=== PATIENT | female | born 1930 | race Caucasian/White ===

== ENCOUNTER 2018-06-25 13:20 | Emergency (ER) | payer OTHER ==
[2018-06-25 14:38] LABS: Absolute Lymphocytes (CBC) 0.8 K/uL (0.7-4.9); Absolute Monocytes 0.4 K/uL (0.1-1.3); Absolute Neutrophil 5.2 K/uL (1.8-8.0); Basophils % 0.4 % (0-1.3); Eosinophils % 0.2 % (0-4.4); Hematocrit 43.4 % (36.0-45.0); Lymphocytes % 12.2 % (15.3-44.8); MPV 9.5 fL (7.6-11.3)
[2018-06-25 14:52] LABS: Albumin 3.9 g/dL (3.4-5.0); Bilirubin Direct 0.3 mg/dL (0-0.2); Bilirubin Total 0.9 mg/dL (0.2-1.0); Potassium 3.5 mmol/L (3.5-5.1); Protein, Total 7.9 g/dL (6.4-8.2)
[2018-06-25] MEDS ORDERED: NA CHLORIDE 0.9% 500 ML ONE (15:26)
[2018-06-25] MEDS ORDERED: ONDANSETRON 4 MG/2 ML VIAL ONE (15:26)
[2018-06-25] MEDS ORDERED: METOPROLOL TAR 25 MG TAB ONE (15:49)
[2018-06-25] MEDS ORDERED: APIXABAN 5 MG TABLET PO SCH (16:00)
[2018-06-25 17:03] LABS: Urine Blood TRACE (NEG); Urine Glucose NEGATIVE (NEG); Urine Protein NEGATIVE (NEG); Urine Specific Gravity 1.015 (1.005-1.030); Urine pH 6.5 (5.0-7.0)
[2018-06-25 17:07] LABS: Urine Bacteria <20 /HPF (<20); Urine RBC <5 /HPF (NONE SEEN)
[2018-06-25 17:08] LABS: Urine Culture Reflex Order REFLEXED
--- NOTE | 2018-06-25 17:34 | ER ---
Nurse's Notes [facility] Name: Zaida Yates Age: 87 yrs Sex: Female : 1930 Arrival Date: 06/25/2018 Time: 13:21 Bed 26 Private MD: Ruthy Lagos Diagnosis: Vomiting;Urinary tract infection, site not specified Presentation: 06/25 13:47 Presenting complaint: Patient states: I have been vomiting for the past 3 days. I cant la1 hold anything down, pt reports subjective fever, denies abd pain. Transition of care: patient was not received from another setting of care. Onset of symptoms was June 25, 2018. Risk Assessment: Do you want to hurt yourself or someone else? Patient reports no desire to harm self or others. Initial Sepsis Screen: Does the patient meet any 2 criteria? No. Patient's initial sepsis screen is negative. Does the patient have a suspected source of infection? No. Patient's initial sepsis screen is negative. 13:47 Method Of Arrival: Ambulatory la1 13:47 Acuity: WILMAN 3 la1 15:59 Care prior to arrival:. ca1 Historical: - Allergies: 13:47 Clindamycin; la1 13:47 Sulfa (Sulfonamide Antibiotics); la1 - Home Meds: 15:30 potassium chloride 20 mEq Oral cpER 2 tabs once daily [Active]; Simvastatin + Ezetomibe ca1 10-20 mg 1 tab daily [Active]; Eliquis 5 mg oral tab 1 tab 2 times per day [Active]; furosemide 40 mg Oral tab 1 tab 3 times per day [Active]; metoprolol tartrate 25 mg Oral tab .5 tab 2 times per day [Active]; levothyroxine 75 mcg tab 1 tab once daily [Active]; allopurinol 100 mg Oral tab 1 tab 2 times per day [Active]; - PMHx: 13:47 Hypertension; Diabetes - NIDDM; Hypothyroidism; la1 13:50 Atrial Fib; la1 - Immunization history:: Adult Immunizations up to date. - Social history:: Smoking status: Patient/guardian denies using tobacco. - Ebola Screening: : No symptoms or risks identified at this time. Screenin:00 Abuse screen: Denies threats or abuse. Denies injuries from another. Nutritional ca1 screening: No deficits noted. Tuberculosis screening: No symptoms or risk factors identified. Fall Risk IV access (20 points). Assessment: 14:00 General: Appears in no apparent distress. Behavior is calm, cooperative, appropriate ca1 for age. General: Reports vomiting for 2 days now. Pain: Denies pain. Neuro: Level of Consciousness is awake, alert, obeys commands, Oriented to person, place, time, situation. Neuro:. Neuro: Reports dizziness. Cardiovascular: Heart tones S1 S2 present Capillary refill < 3 seconds Patient's skin is warm and dry. Respiratory: Airway is patent Trachea midline Respiratory effort is even, unlabored, Respiratory pattern is regular, symmetrical, Breath sounds are clear bilaterally. GI: Abdomen is flat, non-distended, Bowel sounds present X 4 quads. Abd is soft and non tender X 4 quads. Reports nausea, vomiting. : No signs and/or symptoms were reported regarding the genitourinary system. EENT: No signs and/or symptoms were reported regarding the EENT system. Derm: Skin is fragile, is thin, with poor turgor Skin is pink, warm \T\ dry. Musculoskeletal: Circulation, motion, and sensation intact. Capillary refill < 3 seconds. 15:00 Reassessment: Patient appears in no apparent distress at this time. Patient and/or ca1 family updated on plan of care and expected duration. Pain level reassessed. Patient is alert, oriented x 3, equal unlabored respirations, skin warm/dry/pink. 15:53 Reassessment: Patient appears in no apparent distress at this time. Patient and/or ca1 family updated on plan of care and expected duration. Pain level reassessed. Patient is alert, oriented x 3, equal unlabored respirations, skin warm/dry/pink. Faxed to pharmacy [facility]. Patient states feeling better. 16:44 Reassessment: Patient appears in no apparent distress at this time. Patient and/or ca1 family updated on plan of care and expected duration. Pain level reassessed. Patient is alert, oriented x 3, equal unlabored respirations, skin warm/dry/pink. Patient states feeling better. 17:40 Reassessment: Patient appears in no apparent distress at this time. Patient and/or ca1 family updated on plan of care and expected duration. Pain level reassessed. Patient is alert, oriented x 3, equal unlabored respirations, skin warm/dry/pink. Kept for observation after IV antibiotic administration. Vital Signs: 13:50 BP 138 / 90; Pulse 74; Resp 18; Temp 97.6; Pulse Ox 96% on R/A; Weight 61.23 kg; Height la1 5 ft. 5 in. (165.10 cm); 14:30 BP 140 / 85; Pulse 85; Resp 12; Pulse Ox 99% ; jp3 15:12 BP 145 / 100; Pulse 106; Resp 19; Pulse Ox 99% on R/A; ca1 15:53 BP 138 / 100; Pulse 104; Resp 19; Pulse Ox 97% on R/A; ca1 16:44 BP 131 / 92; Pulse 105; Resp 19; Pulse Ox 98% on R/A; ca1 18:00 BP 132 / 89; Pulse 102; Resp 19; Pulse Ox 99% on R/A; ca1 13:50 Body Mass Index 22.46 (61.23 kg, 165.10 cm) la1 ED Course: 13:21 Patient arrived in ED. as 13:22 Ruthy Lagos MD is Private Physician. as 13:49 Triage completed. la1 13:50 Arm band placed on left wrist. la1 13:55 Devin Dodd NP is PHCP. pm1 13:55 Jw Vieira MD is Attending Physician. pm1 13:57 Yessica Jessica, KRUNAL is Primary Nurse. ca1 14:10 Placed in gown. Bed in low position. Call light in reach. Side rails up X 1. Side rails jp3 up X2. Door closed. Warm blanket given. Pillow given. 14:15 journal entry audit clerk on. Pulse ox on. NIBP on. jp3 14:20 Inserted saline lock: 20 gauge in left antecubital area, using aseptic technique. Blood ca1 collected. 16:40 Urine collected: clean catch specimen, clear. ca1 17:33 Ruthy Lagos MD is Referral Physician. pm1 18:05 No provider procedures requiring assistance completed. IV discontinued, intact, mg2 bleeding controlled, No redness/swelling at site. Pressure dressing applied. Administered Medications: 15:10 Drug: Zofran 4 mg Route: IVP; Site: left antecubital; ca1 15:47 Follow up: Response: No adverse reaction; Nausea is decreased ca1 15:10 Drug: NS 0.9% 500 ml Route: IV; Rate: bolus; Site: left antecubital; ca1 15:37 Drug: Metoprolol 12.5 mg Route: PO; ca1 16:06 Follow up: Response: No adverse reaction ca1 16:00 Drug: Eliquis 5 mg Route: PO; ca1 16:44 Follow up: Response: No adverse reaction ca1 17:40 Drug: Rocephin 1 grams Route: IV; Rate: calculated rate; Site: left antecubital; ca1 18:00 Follow up: Response: No adverse reaction; IV Status: Completed infusion; IVP per ca1 pharmacy protocol Outcome: 17:34 Discharge ordered by MD. pm1 18:06 Discharged to home ambulatory, with family. mg2 18:06 Condition: stable 18:06 Discharge instructions given to patient, family, Instructed on discharge instructions, follow up and referral plans. medication usage, Demonstrated understanding of instructions, follow-up care, medications, Prescriptions given X 2. 18:11 Patient left the ED. mg2 Signatures: Katlyn Connor Lee RN RN la1 Devin Dodd, YANELIS MASTER GLAZIER pm1 Lefty Hazel RN RN mg2 Bal Bunch jp3 Yessica Jessica RN RN ca1 Corrections: (The following items were deleted from the chart) 20:03 17:40 Reassessment: Patient appears in no apparent distress at this time. Patient ca1 and/or family updated on plan of care and expected duration. Pain level reassessed. Patient is alert, oriented x 3, equal unlabored respirations, skin warm/dry/pink. ca1
--- NOTE | 2018-06-25 17:34 | EDPHYS ---
Physician Documentation [facility] Name: Zaida Yates Age: 87 yrs Sex: Female : 1930 Arrival Date: 06/25/2018 Time: 13:21 Bed 26 Private MD: Ruthy Lagos ED Physician Jw Vieira HPI: 06/25 16:43 This 87 yrs old Female presents to ER via Ambulatory with complaints of pm1 Vomiting. 16:43 The patient presents to the emergency department with vomiting, Three times per day for pm1 the last three days. Onset: The symptoms/episode began/occurred 3 day(s) ago. Possible causes: unknown. The symptoms are aggravated by nothing. The symptoms are alleviated by nothing. Associated signs and symptoms: Pertinent negatives: abdominal pain, constipation, diarrhea, dysuria, fever, chest pain, shortness of breath. Severity of symptoms: in the emergency department the symptoms are unchanged Pain is currently a 0 / 10. Patient was not able to take her medications this AM because she was vomiting. Historical: - Allergies: 13:47 Clindamycin; la1 13:47 Sulfa (Sulfonamide Antibiotics); la1 - Home Meds: 15:30 potassium chloride 20 mEq Oral cpER 2 tabs once daily [Active]; Simvastatin + Ezetomibe ca1 10-20 mg 1 tab daily [Active]; Eliquis 5 mg oral tab 1 tab 2 times per day [Active]; furosemide 40 mg Oral tab 1 tab 3 times per day [Active]; metoprolol tartrate 25 mg Oral tab .5 tab 2 times per day [Active]; levothyroxine 75 mcg tab 1 tab once daily [Active]; allopurinol 100 mg Oral tab 1 tab 2 times per day [Active]; - PMHx: 13:47 Hypertension; Diabetes - NIDDM; Hypothyroidism; la1 13:50 Atrial Fib; la1 - Immunization history:: Adult Immunizations up to date. - Social history:: Smoking status: Patient/guardian denies using tobacco. - Ebola Screening: : No symptoms or risks identified at this time. ROS: 16:43 Constitutional: Negative for fever, chills, and weight loss, Eyes: Negative for injury, pm1 pain, redness, and discharge, ENT: Negative for injury, pain, and discharge, Neck: Negative for injury, pain, and swelling, Cardiovascular: Negative for chest pain, palpitations, and edema, Respiratory: Negative for shortness of breath, cough, wheezing, and pleuritic chest pain. 16:43 Back: Negative for injury and pain, : Negative for injury, bleeding, discharge, and swelling, MS/Extremity: Negative for injury and deformity, Skin: Negative for injury, rash, and discoloration, Neuro: Negative for headache, weakness, numbness, tingling, and seizure. 16:43 Abdomen/GI: Positive for nausea and vomiting, Negative for abdominal pain, diarrhea, constipation. Exam: 16:43 Constitutional: This is a well developed, well nourished patient who is awake, alert, pm1 and in no acute distress. Head/Face: Normocephalic, atraumatic. Eyes: Pupils equal round and reactive to light, extra-ocular motions intact. Lids and lashes normal. Conjunctiva and sclera are non-icteric and not injected. Cornea within normal limits. Periorbital areas with no swelling, redness, or edema. ENT: Nares patent. No nasal discharge, no septal abnormalities noted. Tympanic membranes are normal and external auditory canals are clear. Oropharynx with no redness, swelling, or masses, exudates, or evidence of obstruction, uvula midline. Mucous membranes moist. Neck: Trachea midline, no thyromegaly or masses palpated, and no cervical lymphadenopathy. Supple, full range of motion without nuchal rigidity, or vertebral point tenderness. No Meningismus. Chest/axilla: Normal chest wall appearance and motion. Nontender with no deformity. No lesions are appreciated. Cardiovascular: Regular rate and rhythm with a normal S1 and S2. No gallops, murmurs, or rubs. Normal PMI, no JVD. No pulse deficits. Respiratory: Lungs have equal breath sounds bilaterally, clear to auscultation and percussion. No rales, rhonchi or wheezes noted. No increased work of breathing, no retractions or nasal flaring. Abdomen/GI: Soft, non-tender, with normal bowel sounds. No distension or tympany. No guarding or rebound. No evidence of tenderness throughout. Back: No spinal tenderness. No costovertebral tenderness. Full range of motion. Skin: Warm, dry with normal turgor. Normal color with no rashes, no lesions, and no evidence of cellulitis. MS/ Extremity: Pulses equal, no cyanosis. Neurovascular intact. Full, normal range of motion. 16:43 Neuro: Orientation: is normal, Motor: is normal, moves all fours, Gait: is steady, at a normal pace, without difficulty. Vital Signs: 13:50 BP 138 / 90; Pulse 74; Resp 18; Temp 97.6; Pulse Ox 96% on R/A; Weight 61.23 kg; Height la1 5 ft. 5 in. (165.10 cm); 14:30 BP 140 / 85; Pulse 85; Resp 12; Pulse Ox 99% ; jp3 15:12 BP 145 / 100; Pulse 106; Resp 19; Pulse Ox 99% on R/A; ca1 15:53 BP 138 / 100; Pulse 104; Resp 19; Pulse Ox 97% on R/A; ca1 16:44 BP 131 / 92; Pulse 105; Resp 19; Pulse Ox 98% on R/A; ca1 18:00 BP 132 / 89; Pulse 102; Resp 19; Pulse Ox 99% on R/A; ca1 13:50 Body Mass Index 22.46 (61.23 kg, 165.10 cm) la1 MDM: 14:25 Patient medically screened. pm1 14:30 Physician consultation: Ruthy Lagos MD in the emergency department to see patient pm1 at 14:30, If patient's Cr is greater than her normal range of 1.7, recommends admission. 17:31 Physician consultation: Ruthy Lagos MD was called at 17:31, was contacted at pm1 17:31, regarding patient's condition, and will see patient in office, Discharge the patient home with antibiotics and she will follow up with the patient in the office. 17:32 Data reviewed: vital signs. Data interpreted: Pulse oximetry: on room air is 98 %. pm1 Interpretation: normal. 17:33 Counseling: I had a detailed discussion with the patient and/or guardian regarding: the pm1 historical points, exam findings, and any diagnostic results supporting the discharge/admit diagnosis, lab results, the need for outpatient follow up, to return to the emergency department if symptoms worsen or persist or if there are any questions or concerns that arise at home. 17:39 ED course: CrCl by Cockcroft-Gault Equation is 24. Will discharge patient home with pm1 dose adjusted vantin. 06/25 14:04 Order name: Basic Metabolic Panel; Complete Time: 14:57 pm1 06/25 14:04 Order name: CBC with Diff; Complete Time: 14:57 pm1 06/25 14:04 Order name: Creatinine for Radiology; Complete Time: 14:57 pm1 06/25 14:04 Order name: Hepatic Function; Complete Time: 14:57 pm1 06/25 14:04 Order name: Lipase; Complete Time: 14:57 pm1 06/25 14:04 Order name: Urine Microscopic Only; Complete Time: 17:23 pm1 06/25 14:04 Order name: IV Saline Lock; Complete Time: 14:24 pm1 06/25 16:54 Order name: Urine Dipstick--Ancillary (enter results); Complete Time: 17:06 eb 06/25 17:08 Order name: Urine Culture [facility] 06/25 14:04 Order name: Labs collected and sent; Complete Time: 14:24 pm1 06/25 14:04 Order name: Urine Dipstick-Ancillary (obtain specimen); Complete Time: 16:44 pm1 06/25 16:04 Order name: PO challenge; Complete Time: 16:06 pm1 Administered Medications: 15:10 Drug: Zofran 4 mg Route: IVP; Site: left antecubital; ca1 15:47 Follow up: Response: No adverse reaction; Nausea is decreased ca1 15:10 Drug: NS 0.9% 500 ml Route: IV; Rate: bolus; Site: left antecubital; ca1 15:37 Drug: Metoprolol 12.5 mg Route: PO; ca1 16:06 Follow up: Response: No adverse reaction ca1 16:00 Drug: Eliquis 5 mg Route: PO; ca1 16:44 Follow up: Response: No adverse reaction ca1 17:40 Drug: Rocephin 1 grams Route: IV; Rate: calculated rate; Site: left antecubital; ca1 18:00 Follow up: Response: No adverse reaction; IV Status: Completed infusion; IVP per ca1 pharmacy protocol Disposition: 06/26 11:56 Co-signature as Attending Physician, Jw Vieira MD. Disposition: 06/25/18 17:34 Discharged to Home. Impression: Vomiting, Urinary tract infection, site not specified. - Condition is Stable. - Discharge Instructions: Nausea and Vomiting, Adult, Urinary Tract Infection, Adult. - Prescriptions for Zofran 4 mg Oral Tablet - take 1 tablet by ORAL route every 8 hours As needed; 20 tablet. cefpodoxime 100 mg Oral Tablet - take 1 tablet by ORAL route once daily for 7 days take with food; 7 tablet. - Medication Reconciliation Form, Thank You Letter, Antibiotic Education form. - Follow up: Emergency Department; When: As needed; Reason: Worsening of condition. Follow up: Ruthy Lagos MD; When: 2 - 3 days; Reason: Recheck today's complaints, Continuance of care, Re-evaluation by your physician. - Problem is new. - Symptoms have improved. Signatures: Dispatcher [employer] EDMS John Buck RN RN la1 Devin Dodd, YANELIS CHEMICAL DEPENDENCY NURSE pm1 Jw Vieira MD MD Lefty Hazel RN RN mg2 Jaskaran, Yessica RN RN ca1 Corrections: (The following items were deleted from the chart) 06/25 18:11 17:34 06/25/2018 17:34 Discharged to Home. Impression: Vomiting; Urinary tract mg2 infection, site not specified. Condition is Stable. Forms are Medication Reconciliation Form, Thank You Letter, Antibiotic Education, Prescription Opioid Use. Follow up: Emergency Department; When: As needed; Reason: Worsening of condition. Follow up: Ruthy Lagos; When: 2 - 3 days; Reason: Recheck today's complaints, Continuance of care, Re-evaluation by your physician. Problem is new. Symptoms have improved. pm1
[2018-06-25] MEDS ORDERED: CEFTRIAXONE/SWI 1gm 1 GM/10 ML SYR ONE (17:54)
[2018-06-25 18:18] VITALS: TEMP 97.6
[2018-06-25 18:23] VITALS: BP 131/92; O2SAT 98
== END 2018-06-25 18:11 | disposition home or self-care (01) ==
LOC: ER 13:20
DX: N39.0 Urinary tract infection, site not specified (principal); I10 Essential (primary) hypertension; I48.91 Unspecified atrial fibrillation; E11.9 Type 2 diabetes mellitus without complications; E03.9 Hypothyroidism, unspecified; Z79.01 Long term (current) use of anticoagulants; Z88.2 Allergy status to sulfonamides; Z88.3 Allergy status to other anti-infective agents
CPT/HCPCS: 96365; 87088; 85025; 80048; 36415; 80076; 83690; 96375; 99284; J0696; J2405; 81003; 81015; 87086

== ENCOUNTER → 2019-01-12 | Day surgery (SDC) | payer OTHER ==
--- OUTSIDE RECORDS SUMMARY | 2019-01-12 08:17 | XMS REPORT | Clinical Summary ---
:1930 Author Organization [facility] Address [address] [place] [address] Care Team Providers Name Role Phone Ruthy Lagos MD Primary Care Provider Allergies Active Allergy Reactions Severity Noted Date Comments Clindamycin 02/02/2016 Codeine 02/02/2016 Sulfa (Sulfonamide Antibiotics) 02/02/2016 Medications Medication Sig Dispensed Refills Start Date End Date Status ELIQUIS 5 mg tablet TAKE 1 TABLET 5 01/14/2016 Active (5MG) BY ORAL ROUTE 2 TIMES EVERY DAY levothyroxine TAKE 1 TABLET BY 3 01/15/2016 Active (SYNTHROID, LEVOTHROID) MOUTH ONCE A DAY 88 MCG tablet TAKE 1 TABLET BY MOUTH EVERY DAY metolazone (ZAROXOLYN) Take 2.5 mg by 3 11/13/2015 Active 2.5 MG tablet mouth once a week. metoprolol tartrate TAKE 1/2 TABLET 5 01/17/2016 Active (LOPRESSOR) 25 MG BY MOUTH 2 TIMES tablet A DAY pantoprazole (PROTONIX) Take 40 mg by 3 11/11/2015 Active 40 MG EC tablet mouth once daily. potassium chloride TAKE 2 TABLET BY 3 01/14/2016 Active (K-DUR) 20 MEQ CR MOUTH ONCE A DAY tablet VYTORIN 10-20 10-20 mg Take 1 tablet by 4 01/23/2016 Active per tablet mouth once daily. baclofen (LIORESAL) 10 Take 10 mg by 0 Active MG tablet mouth 3 (three) times a day. furosemide (LASIX) 40 Take 40 mg by 0 Active MG tablet mouth 2 (two) times a day. peg 400-propylene Use one drop in 1.5 mL 2 08/12/2016 Active glycol (SYSTANE, the morning both PROPYLENE GLYCOL,) eyes and as 0.4-0.3 % drops needed for dryness Active Problems No known active problems Family History Medical History Relation Name Comments Cataracts Mother Glaucoma Mother Hypertension Mother Cataracts Sister Relation Name Status Comments Mother Sister Social History Tobacco Use Types Packs/Day Years Used Date Former Smoker Quit: 1979 Smokeless Tobacco: Never Used Alcohol Use Drinks/Week oz/Week Comments No Sex Assigned at Date Recorded Not on file Job Start Date Occupation Industry Not on file Not on file Not on file Travel History Travel Start Travel End No recent travel history available. Last Filed Vital Signs Not on file Plan of Treatment Health Maintenance Due Date Last Done Comments SHINGLES VACCINES (#1) 07/12/1981 65+ PNEUMOCOCCAL VACCINE (1 of 2 - PCV13) 07/12/1996 INFLUENZA VACCINE 11/23/2018 Results Not on fileafter 01/11/2018 Advance Directives For more information, please contact: [phone] Type Date Recorded Patient Air Bag Builder Explanation Advance Directives, Living Will and Medical Power of Mixer Diamond Powder
--- OUTSIDE RECORDS SUMMARY | 2019-01-12 08:18 | XMS REPORT ---
:1930 [facility] Address [address] [place] [address] Dr. Perrin [address] [place] [address] Care Team Providers Name Role Phone Unavailable Unavailable Unavailable Problems This patient has no known problems. Allergies, Adverse Reactions, Alerts This patient has no known allergies or adverse reactions. Medications This patient has no known medications.
--- OUTSIDE RECORDS SUMMARY | 2019-01-12 08:18 | XMS REPORT | Summary of Care ---
:1930 Author Organization [facility] Address [address] [place] [id number] Care Team Providers Name Role Phone Ruthy Lagos MD Primary Care Provider Reason for Visit Reason Comments Rx Concern/Question Encounter Details Date Type Department Care Team Description 12/21/2018 Telephone [facility] Omega Galo, Rx Concern/Question Neurology-Vee OSBORNE [address] [place] [address], [address] [place] [address]. [address] [place] [phone] Allergies Active Allergy Reactions Severity Noted Date Comments Clindamycin Unknown - See comments 02/02/2016 Codeine Unknown - See comments 02/02/2016 Sulfa (Sulfonamide Antibiotics) Unknown - See comments 02/02/2016 documented as of this encounter (statuses as of 12/22/2018) Medications Medication Sig Dispensed Refills Start Date End Date Status levothyroxine 88 mcg TAKE 1 TABLET 0 01/15/2016 Active tablet BY MOUTH ONCE A DAY TAKE 1 TABLET BY MOUTH EVERY DAY apixaban (ELIQUIS) 5 TAKE 1 TABLET 0 01/14/2016 Active mg tablet (5MG) BY ORAL ROUTE 2 TIMES EVERY DAY furosemide 40 mg Take 40 mg by 0 Active tablet mouth. metOLazone 2.5 mg Take 2.5 mg 0 11/13/2015 Active tablet by mouth. metoprolol tartrate TAKE 1/2 0 01/17/2016 Active 25 mg tablet TABLET BY MOUTH 2 TIMES A DAY pantoprazole 40 mg Take 40 mg by 0 11/11/2015 Active EC tablet mouth. KCL 20 mEq tablet TAKE 2 TABLET 0 01/14/2016 Active BY MOUTH ONCE A DAY ezetimibe-simvastati Take by 0 01/23/2016 Active n 10-20 (VYTORIN mouth. 02/11) 10-20 mg tablet allopurinol 100 mg Take 100 mg 0 Active tablet by mouth daily. solifenacin Take 5 mg by 0 Active (VESICARE) 5 mg mouth daily. tablet gabapentin 100 mg Take 1 90 capsule 1 08/31/2018 Active capsuleIndications: capsule by Trigeminal neuralgia mouth 3 (three) times daily. pyridostigmine 60 mg TAKE ONE 60 tablet 0 12/22/2018 Active tabletIndications: TABLET BY Myasthenia gravis MOUTH TWICE A DAY FOR JAW WEAKNESS. pyridostigmine 60 mg TAKE 1/2 15 tablet 1 12/12/2018 Discontinued tabletIndications: TABLET BY 9 Myasthenia gravis MOUTH TWICE A DAY FOR JAW WEAKNESS. documented as of this encounter (statuses as of 12/22/2018) Active Problems Not on filedocumented as of this encounter (statuses as of 12/22/2018) Social History Tobacco Use Types Packs/Day Years Used Date Never Smoker Alcohol Use Drinks/Week oz/Week Comments Never Alcohol Habits Answer Date Recorded How often do you have a drink containing alcohol? Never 11/14/2018 How many drinks containing alcohol do you have on a typical Not asked day when you are drinking? How often do you have six or more drinks on one occasion? Not asked Sex Assigned at Date Recorded Not on file Job Start Date Occupation Industry Not on file Not on file Not on file Travel History Travel Start Travel End No recent travel history available. documented as of this encounter Last Filed Vital Signs Not on filedocumented in this encounter Plan of Treatment Date Type Specialty Care Team Description 01/09/2019 Office Visit Neurology Omega Galo MD [address] [place] [phone] Health Maintenance Due Date Last Done Comments DTaP,Tdap,and Td Vaccines (1 - Tdap) 07/12/1950 Zoster Recombinant Vaccine (SHINGRIX) (1 of 2) 07/12/1981 Medicare Wellness Visit 07/12/1996 Osteoporosis Screening 07/12/1996 PNEUMOCOCCAL VACCINES 65+ (1 of 2 - PCV13) 07/12/1996 INFLUENZA VACCINE (#1) 2018 documented as of this encounter Results Not on filedocumented in this encounter Visit Diagnoses Diagnosis Myasthenia gravis Myasthenia gravis without exacerbation documented in this encounter Insurance Payer Benefit Plan / Subscriber ID Effective Phone Address Type Group Dates [facility] [id number] [facility] Medicare Adv HEALTHCARE - HEALTHCARE nt HMO MANAGED MEDICARE ADV MEDICARE HMO documented as of this encounter
--- NOTE | 2019-01-12 10:26 | RAD REPORT ---
EXAM DESCRIPTION: US - Breast Core BX w/US Guidance - 01/12/2019 10:07 am CLINICAL HISTORY: R92.8 COMPARISON: Mammogram December 13 TECHNIQUE: The patient presents for ultrasound-guided biopsy of a suspicious mass in the 12 o'clock left breast. Patient is status post right mastectomy for carcinoma. The ultrasound-guided core biopsy procedure, risks and alternatives were discussed with the patient i n detail. After answering all questions, both oral and written consent were obtained. Time out proced ure was performed. The patient had no contraindicated allergy. Patient was off Eliquis therapy 24 kevin rs. Preliminary imaging identified a 2.5 centimeter macrolobulated hypoechoic mass 12 o'clock left breast . The anterior breast was prepped and draped in the usual sterile fashion. From a lateral approach, s kin and deeper tissues were anesthetized with 1% lidocaine. Under direct sonographic visualization a 14 gauge vacuum assisted core biopsy needle was advanced and placed at the lateral margin of the mass . There were a total of two core biopsies obtained under direct sonographic guidance. The mass did ap pear to have distortion in contour supporting transit of the biopsy needle through the small mass. At the conclusion of the procedure a localization clip was placed under sonographic guidance. Post biopsy imaging showed no hematoma or measurable bleeding within the breast. Hemostasis was obtai lissett at the skin site with a sterile bandage placed. Post procedure care and precaution instructions were given to the patient. IMPRESSION: 1. Ultrasound-guided core biopsy was performed of the left breast mass. All obtained mat erial was given to pathology for histologic assessment. 2. Post biopsy localization clip was placed under ultrasound guidance.
== END ==
LOC: DS 08:15
PROVIDERS: ATTEND Student in an Organized Health Care Education/Training Program
DX: C50.912 Malignant neoplasm of unspecified site of left female breast (principal); Z17.1 Estrogen receptor negative status [ER-]
CPT/HCPCS: 19083; 88305

== ENCOUNTER 2021-03-18 15:13 | Inpatient (IN) | payer OTHER ==
--- OUTSIDE RECORDS SUMMARY | 2021-03-18 15:21 | XMS REPORT | Continuity of Care Document ---
:1930 Author Organization [facility] t Address [address] [place] [address] Care Team Providers Name Role Phone DALE ROOT Attending Clinician Unavailable LIBRADO FUNES Attending Clinician Unavailable Matilde HECTOR Attending Clinician Unavailable Singer LOW Attending Clinician Fady LOW Attending Clinician Deep Jackson DO Attending Clinician Bridgett DRISCOLL Attending Clinician Unavailable Dale Root MD Attending Clinician Only, Test Attending Clinician Unavailable Erinn OSBORNE Attending Clinician Doctor Unassigned, Name Attending Clinician Unavailable April Hyde Attending Clinician Scott MILLS Attending Clinician Mando OSBORNE Attending Clinician Margaret OSBORNE, Nohemi Attending Clinician Pedro OSBORNE, Krystal Attending Clinician Conchis OSBORNE PHD Attending Clinician Clover OSBORNE, Lazarus Attending Clinician DALE ROOT Admitting Clinician Unavailable LIBRADO FUNES Admitting Clinician Unavailable Fady LOW Admitting Clinician Dale Root MD Admitting Clinician Mando OSBORNE Admitting Clinician Payers Payer Name Policy Type Policy Number Effective Date Expiration Date [place] quispe [facility] [id number] 2014 MEDICARE ADV HMO 00:00:00 UNITED MEDICARE HMO [id number] 2020 00:00:00 Advance Directives Directive Decision Effective Termination Comments Source Date Date Healthcare Agents on N/A Univ ersity FileNameRelationshipHealthcare [facility] Agent Medical RelationshipCommunicationGeorge Branch GrosvenorSpouse2 - Health Care Agent (Medical Power of Director Data Architecture) Rut Funk3 - First Alternate Agent (Medical Power of Director Data Architecture) Problems Condition Condition Condition Status Onset Resolution Last Treating Co mments Source Name Details Category Date Date Treatment Clinician Date Acute Acute Disease Active Univers encephalop encephalop 5-27 it y of athy athy 00:00: 00 Medical Branch Malignant Malignant Disease Active Uni vers melanoma melanoma 9-28 ity of of face of face 00:00: [place] excluding excluding 00 Medi gustavo eyelid, eyelid, Branch nose, lip, nose, lip, and ear and ear GI bleed GI bleed Disease Active Unive rs 8-24 ity of 00:00: [place] 00 Medical Branch Melena Melena Disease Active Overview: Univer s 8-23 Formattin ity of 00:00: g of this 00 note Medical might be Branch different from the original. Added automatic ally from request for surgery [id number] Allergies, Adverse Reactions, Alerts Allergy Allergy Status Severity Reaction(s) Onset Inactive Treating Comm ents Source Name Type Date Date Clinician CLINDAMY Allergy Active [facility] CODEINE [facility] SULFA Allergy Active [facility] (SULFONA [facility] - MIDE 00:00: Medical ANTIBIOT 00 Center ICS) Clindamy Propensi Active Unknown - 2015-04 Uni vers светлана ty to See comments 0-10 ity of adverse 00:00: [place] reaction 00 Medical s Branch Codeine Propensi Active Unknown - 2015-04 Univ ers ty to See comments 0-10 ity of adverse 00:00: [place] reaction 00 Medical s Branch Sulfa Propensi Active Unknown - 2015-04 Unive rs (Sulfona ty to See comments 0-10 it y of mide adverse 00:00: [place] Antibiot reaction 00 Medica l ics) s Branch CLINDAMY DRUG Active Unknown-Cmnt 2015-04 Un neo СВЕТЛАНА INGREDI 0-10 ity of 00:00: [place] 00 Medical Branch CODEINE DRUG Active Unknown-Cmnt 2015-04 Uni vers INGREDI 0-10 ity of 00:00: [place] 00 Medical Branch SULFA Drug Active Unknown-Cmnt 2015-04 Univ ers (SULFONA Class 0-10 ity of MIDE 00:00: [place] ANTIBIOT 00 Medical ICS) Branch Social History Social Habit Start Date Stop Date Quantity Comments Source History of Cigarette Smoker Universi ty of tobacco use [facility] Exposure to Unable to assess Univers ity of SARS-CoV-2 [place] [facility] (event) Branch History SDOR University o f Alcohol Std [place] [facility] Drinks Branch History [facility] University o f Alcohol Binge [place] Medic al Branch Tobacco use and 2020-09-20 2020-09-20 Never used Universit y of exposure 00:00:00 00:00:00 [facility] Alcohol intake 2020-09-20 2020-09-20 Lifetime University of 00:00:00 00:00:00 non-drinker [place] [facility] (finding) Branch History SDOH 2020-09-18 2020-09-18 21 University o f Education 00:00:00 00:00:00 [facility] Tobacco Comment 2019-12-17 2019-12-17 quit at age 41 Unive rsity of 00:00:00 00:00:00 [place] [facility] History SDOH 2018-11-14 2018-11-14 1 University o f Alcohol Frequency 00:00:00 [facility] [place] Sex Assigned At [birth year] Universit y of 00:00:00 00:00:00 [facility] Smoking Status Start Date Stop Date Source Former smoker 2020-09-20 00:00:00 2020-09-20 00:00:00 [facility] [place] [facility] Never smoker [facility] Medical Branch Medications Ordered Filled Start Stop Current Ordering Indication Dosage Frequency Signature Comments Components Source Medication Medication Date Date Medication? Clinician (SIG) Name Name levothyroxi Yes 125ug 125 mcg, U nivers ne 09-24 Oral, ity of (SYNTHROID) 11:00: QAM-0600, [place] tablet 125 00 First dose Med ical mcg (after Branch last modificati on) on Tue09/24/20 at 0600, Until Discontinu ed, Routine pantoprazol 2020- No [id number] 40mg Take 1 Univers e 40 mg EC 09-24 tablet by ity of tablet 00:00: 04:59 mouth [place] 00 :00 daily for Medical 30 days. Branch furosemide 2020- No [id number] 40mg Take 1 Univers 40 mg 09-24 tablet by ity of tablet 00:00: 04:59 mouth [place] 00 :00 daily for Medical 30 days. Branch pantoprazol 2020- No [id number] 40mg Take 1 Univers e 40 mg EC 09-24 tablet by ity of tablet 00:00: 04:59 mouth [place] 00 :00 daily for Medical 30 days. Branch furosemide 2020- No [id number] 40mg Take 1 Univers 40 mg 09-24 tablet by ity of tablet 00:00: 04:59 mouth [place] 00 :00 daily for Medical 30 days. Branch allopurinol 2020- No 200mg Take 200 Univers 100 mg 09-23 mg by ity of tablet 20:02: 00:00 mouth [place] 30 :00 daily. Medical Branch solifenacin 2020- No 5mg Take 5 mg Univers (VESICARE) 09-23 by mouth ity of 5 mg tablet 20:02: 00:00 daily. Jan as 30 :00 Medical Branch baclofen 10 2020- No 10mg Take 10 mg Univers mg tablet 09-23 by mouth 3 ity of 20:02: 00:00 (three) [place] 30 :00 times Medical daily as Branch needed. thiamine 2020- No 100mg IV Univers (VITAMIN 09-23 Piggyback, ity of B1) 100 mg 17:00: 19:20 Q24H, 1 Jan as in NaCl 00 :00 dose, Medical 0.9% (NS) First dose Bran ch piggyback (after last modificati on) on Tue09/23/20 at 1200, 50 mL levothyroxi 2020- No 100ug 100 mcg, Univers ne 09-23 Oral, ity of (SYNTHROID) 11:00: 19:54 QAM-0600, [place] tablet 100 00 :14 First dose Med ical mcg (after Branch last modificati on) on Tue09/23/20 at 0600, Until Discontinu ed, Routine acetaminoph 2021- No [id number] 650mg Take 2 Univers en 325 mg 09-23 tablets by ity of tablet 00:00: 04:59 mouth [place] 00 :00 every 6 Medical (six) Branch hours as needed for Pain (scale 1-3). acetaminoph 2021- No [id number] 650mg Take 2 Univers en 325 mg 09-23 tablets by ity of tablet 00:00: 04:59 mouth [place] 00 :00 every 6 Medical (six) Branch hours as needed for Pain (scale 1-3). metoprolol 2020- No [id number] 12.5mg Take 0.5 Univers tartrate 25 09-23 tablets by i ty of mg tablet 00:00: 04:59 mouth 2 [place] 00 :00 (two) Medical times Branch daily for 30 days. apixaban 2020- No [id number] 2.5mg Take 1 Unive rs 2.5 mg 09-23 tablet by ity of tablet 00:00: 04:59 mouth 2 [place] 00 :00 (two) Medical times Branch daily for 30 days. Indication s: prevention of thromboemb olism in paroxysmal atrial fibrillati on levothyroxi 2020- No [id number] 125ug Take 1 Univers ne 125 mcg 09-23 tablet by ity of tablet 00:00: 04:59 mouth [place] 00 :00 every Medical morning Branch for 30 days. metoprolol 2020- No [id number] 12.5mg Take 0.5 Univers tartrate 25 09-23 tablets by i ty of mg tablet 00:00: 04:59 mouth 2 [place] 00 :00 (two) Medical times Branch daily for 30 days. apixaban 2020- No [id number] 2.5mg Take 1 Unive rs 2.5 mg 09-23 tablet by ity of tablet 00:00: 04:59 mouth 2 [place] 00 :00 (two) Medical times Branch daily for 30 days. Indication s: prevention of thromboemb olism in paroxysmal atrial fibrillati on levothyroxi 2020- No [id number] 125ug Take 1 Univers ne 125 mcg 09-23 tablet by ity of tablet 00:00: 04:59 mouth [place] 00 :00 every Medical morning Branch for 30 days. levoFLOXaci 2020- No [id number] 500mg Take 1 Univers n 500 mg 09-23 tablet by ity o f tablet 00:00: 04:59 mouth [place] 00 :00 every 48 Medical ([facility]) hours for 4 days. levoFLOXaci 2020- No [id number] 500mg Take 1 Univers n 500 mg 09-23 tablet by ity o f tablet 00:00: 04:59 mouth [place] 00 :00 every 48 Medical ([facility]) hours for 4 days. acetaminoph Yes 650mg 650 mg, Un neo en 09-22 Oral, ity of (TYLENOL) 05:40: [facility], [place] tablet 650 57 Starting Medic al mg Mon Branch 09/22/20 at 0040, Until Discontinu ed, Routine, Pain (scale 1-3) ceFEPIme Yes 1000mg 1,000 mg, Un neo (MAXIPIME) 5-30 IV ity of 1,000 mg in 15:30: Piggyback, [place] NaCl 0.9% 00 Q24H ABX, Medic al (NS) 50 mL First dose Bra [facility] MINI-BAG on 09/21/20 at 1030, Until Discontinu ed, 50 mL
R koby for Anti-Infec tive: Empiric Therapy for Suspected Infection< br>Empiric Therapy Site: Respirator y
Durat ion of therapy: 7 days thiamine 2020- No 100mg IV Univers (VITAMIN 09-21 06 Piggyback, ity of B1) 100 mg 14:00: 13:23 DAILY, 3 [place] in NaCl 00 :52 doses, Medical 0.9% (NS) First dose Bran ch piggyback on Tue09/21/20 at 0900, Last dose on Tue09/23/20 at 0900, 50 mL azithromyci Yes 500mg 500 mg, IV Univers n 09-21 Piggyback, ity of (ZITHROMAX) 13:00: Q24H ABX, [place] 500 mg in 00 First dose Medi gustavo NaCl 0.9% on [place] Branch (NS) 250 mL 09/21/20 at VIAL-MATE 0800, IV Until piggyback Discontinu ed, 250 mL
R koby for Anti-Infec tive: Empiric Therapy for Suspected Infection< br>Empiric Therapy Site: Respirator y
Durat ion of therapy: 7 days ipratropium Yes 3mL 3 mL, Unive rs -albuteroL 5-30 Inhalation ity of (DUONEB) 13:00: , QID, [place] 0.5 mg-3 00 First dose Medic al mg(2.5 mg on [place] Branch base)/3 mL 09/21/20 at nebulizer 0800, solution 3 Until mL Discontinu ed, Routine cefTRIAXone 2020- No 1000mg 1,000 mg, Univers (ROCEPHIN) 09-21-30 IV ity of 1,000 mg in 13:00: 14:15 Piggyback, [place] NaCl 0.9% 00 :53 Q24H ABX, Medic al (NS) 50 mL First dose Bra nch MINI-BAG on Tue09/21/20 at 0800, Until Discontinu ed, 50 mL
R koby for Anti-Infec tive: Empiric Therapy for Suspected Infection< br>Empiric Therapy Site: Respirator y
Durat ion of therapy: 7 days ipratropium 2020- No 3mL 3 mL, Univ ers -albuteroL -30 05-30 Inhalation it y of (DUONEB) 06:30: 05:39 , ONCE, 1 Jan [place] 0.5 mg-3 00 :00 dose, Sun Medica l mg(2.5 mg 09/21/20 at [facility] base)/3 mL 0130, nebulizer Routine solution 3 mL ipratropium Yes 3mL 3 mL, Unive rs -albuteroL 5-30 Inhalation ity of (DUONEB) 05:27: , QIDPRN, [place] 0.5 mg-3 48 Starting Medical mg(2.5 mg [place] Branch base)/3 mL 09/21/20 at nebulizer 0027, solution 3 Until mL Discontinu ed, Routine, Wheezing, Shortness of Breath, Bronchospa sm, Chest tightness D5W 0.45% 2020- No 500mL at 50 Unive rs NaCl - 05-30 mL/hr, 500 ity of (1/2NS) IV 21:30: 11:48 mL, IV [place] infusion 00 :36 Infusion, Medica l 500 mL CONTINUOUS Branch , Starting [facility] 09/20/20 at 1630, Until [place] 09/21/20 at 0648, Routine pantoprazol Yes 40mg 40 mg, Univ ers e 5-29 Oral, ity of (PROTONIX) 14:00: DAILY, [place] EC tablet 00 First dose Medi gustavo 40 mg on [facility] Branch 09/20/20 at 0900, Until Discontinu ed, Routine furosemide Yes 40mg 40 mg, Unive rs (LASIX) 09-20 Oral, ity of tablet 40 14:00: DAILY, [place] mg 00 First dose Medical on [facility] Branch 09/20/20 at 0900, Until Discontinu ed, Routine levothyroxi 2020- No 88ug 88 mcg, Un neo ne 09-20 05-31 Oral, ity of (SYNTHROID) 11:00: 19:15 QAM-0600, [place] tablet 88 00 :31 First dose Medi gustavo mcg on Sat Branch 09/20/20 at 0600, Until Discontinu ed, Routine ondansetron Yes 4mg 4 mg, Slow Univers (ZOFRAN 09-20 IV Push, ity of (PF)) 10:38: Q6HPRN, [place] injection 4 22 Starting Medi gustavo mg Sat Branch 09/20/20 at 0538, Until Discontinu ed, Routine, Nausea and Vomiting (N/V) apixaban Yes 2.5mg 2.5 mg, Unive rs (ELIQUIS) 09-20 Oral, BID, ity of tablet 2.5 01:00: First dose [place] mg 00 on Tue Medical 09/19/20 at Branch 1999, Until Discontinu ed, Routine metoprolol Yes 12.5mg 12.5 mg, U nivers tartrate 09-20 Oral, BID, ity o f (LOPRESSOR) 01:00: First dose [place] tablet 12.5 00 on Tue Medica l mg 09/19/20 at Branch 1999, Until Discontinu ed, Routine heparin No 5000U 5,000 Univers (porcine) 09-19 Units, ity of injection 03:00: 17:28 Subcutaneo [place] 5,000 Units 00 :08 us, Q8H, Medi gustavo First dose Branch on Tue09/18/20 at 2200, Until Discontinu ed, Routine pantoprazol No 40mg 40 mg, IV Univers e 09-19 Piggyback, ity of (PROTONIX) 02:45: 17:26 Q24H, [place] 40 mg in 00 :38 First dose Medic al NaCl 0.9% on [place] Branch (NS) 100 mL 09/18/20 at MINI-BAG 2145, Until Discontinu ed, 100 mL D5W 0.45% No 1000mL at 50 Univ ers NaCl 09-19 mL/hr, ity of (1/2NS) IV 01:45: 23:52 1,000 mL, [place] infusion 00 :23 IV Medical 1,000 mL Infusion, Branch CONTINUOUS , Starting [place] 09/18/20 at 2045, Until Tue09/19/20 at 1852, Routine hydralAZINE Yes 5mg 5 mg, Slow Univers (APRESOLINE 09-19 IV Push, ity of ) injection 01:31: Q6HPRN, [place] 5 mg 57 Starting Medical [place] Branch 09/18/20 at 203, Until Discontinu ed, Routine, DBP=>100; SBP=>160<b r>Indicati on: Hypertensi ve Emergency piperacilli 2020- No 3.375g 3.375 g, Univers n-tazobacta 09-18 IV ity of m (ZOSYN) 17:00: 00:34 Piggyback, [place] 3.375 g in 00 :58 Q6H ABX, Medic al NaCl 0.9% First dose Bran ch (NS) 100 mL on [place] MINI-BAG 09/18/20 at 1200, Until Discontinu ed, 100 mL
R koby for Anti-Infec tive: Empiric Therapy for Suspected Infection< br>Empiric Therapy Site: Urine
D uration of therapy: 72 hours NaCl 0.9% 2020- No 30mL/kg at 999 Un neo (NS) bolus 09-18- mL/hr, ity of infusion 14:00: 13:50 1,836 mL [place] 1,836 mL 00 :00 (30 mL/kg Medica l ?61.2 kg), Branch IV Piggyback, ONCE, 1 dose, [place] 09/18/20 at 0900, STAT allopurinol 2019-04 Yes 200mg Take 200 U nivers 100 mg 1-09 mg by ity of tablet 15:24: mouth [place] 03 daily. Medical Branch solifenacin 2019-04 Yes 5mg Take 5 mg U nivers (VESICARE) 1-09 by mouth ity o f 5 mg tablet 15:24: daily. [place] 03 Medical Branch baclofen 10 2019-04 Yes 10mg Take 10 mg Univers mg tablet 1-09 by mouth 3 ity of 15:24: (three) [place] 03 times Medical daily as Branch needed. baclofen 10 2019-04 Yes 10mg Take 10 mg Univers mg tablet 0-26 by mouth 3 ity of 15:24: (three) [place] 34 times Medical daily as Branch needed. allopurinol 2019-04 Yes 200mg Take 200 U nivers 100 mg 0-26 mg by ity of tablet 15:24: mouth [place] 33 daily. Medical Branch solifenacin 2019-04 Yes 5mg Take 5 mg U nivers (VESICARE) 0-26 by mouth ity o f 5 mg tablet 15:24: daily. [place] 33 Medical Branch HYDROmorpho 2019- Yes .2mg 0.2 mg, Uni vers ne 0-26 Slow IV ity of (DILAUDID) 15:11: Push, [place] injection 42 Q5MIN PRN, Medi gustavo 0.2 mg 5 doses, Branch Starting 02/18/20 at 1011, Until Discontinu ed, Routine, Pain (scale 7-10), PACU
Us e approved by (Faculty): PACU USE -ANESTHESI A SERVICE-HY DROMORPHON E INJECTIONS FENTanyl PF 2019-04 Yes 25ug 25 mcg, Uni vers (SUBLIMAZE 0-26 Slow IV ity of (PF)) 15:11: Push, [place] injection 42 Q5MIN PRN, Medi gustavo 25 mcg 4 doses, Branch Starting 02/18/20 at 1011, Until Discontinu ed, Routine, Pain (scale 4-6), PACU ondansetron 2019-04 Yes 4mg 4 mg, Slow Univers (ZOFRAN 0-26 IV Push, ity of (PF)) 15:11: PRN, 1 [place] injection 4 42 dose, Medical mg Starting Branch [facility] 02/18/20 at 1011, Until Discontinu ed, Routine, Nausea and Vomiting (N/V), PACU sodium 2019-04 Yes PRN, Univers chloride 0-26 Starting ity of 0.9 % 13:43: Mon [place] irrigation 00 02/18/20 Medic al solution at 0843, Branch Until Discontinu ed, Intra-op lidocaine-e 2019-04 Yes PRN, Univer s pinephrine 0-26 Starting ity o f (XYLOCAINE 12:53: [facility] W/EPINEPHRI 00 02/18/20 Medi gustavo NE) 1 at 0753, Branch %-1:200,000 Until injection Discontinu ed, Routine, Intra-op ceFAZolin 2019-04 Yes 1000mg 1,000 mg, U nivers (ANCEF) 0-26 IV ity of 1,000 mg in 12:00: Piggyback, [place] NaCl 0.9% 00 O.R. Medical (NS) 50 mL HOLDING Branch MINI-BAG ONCE, 1 dose, Starting [facility] 02/18/20 at 0700, Until Discontinu ed, 50 mL, [facility]SU Pre-op
Reason for Anti-Infec tive: Surgical Prophylaxi s
Surgi gustavo Prophylaxi s: Head and Neck
Du ration of therapy: within 24 hours of surgery HYDROcodone 2019-04 2020- No [id number] 1{tbl} Take 1 U nivers -acetaminop 0-26 02-25 tablet by it y of hen 5-325 00:00: 05:59 mouth [place] mg tablet 00 :00 every 6 Medical (six) Branch hours as needed for Pain (scale 7-10) for up to 7 days. Indication s: acute pain allopurinol 2019-1 Yes 200mg Take 200 U nivers 100 mg 0-23 mg by ity of tablet 15:42: mouth [place] 29 daily. Medical Branch solifenacin 2019-1 Yes 5mg Take 5 mg U nivers (VESICARE) 0-23 by mouth ity o f 5 mg tablet 15:42: daily. [address] Branch allopurinol 2019-0 Yes 200mg Take 200 U nivers 100 mg 8-26 mg by ity of tablet 00:01: mouth [place] 26 daily. Medical Branch solifenacin 2020-0 Yes 5mg Take 5 mg U nivers (VESICARE) 8-26 by mouth ity o f 5 mg tablet 00:01: daily. [place] [address] Medical Branch baclofen 10 2019-0 Yes 10mg Take 10 mg Univers mg tablet 8- by mouth 3 ity of 00:01: (three) [place] 26 times Medical daily as Branch needed. allopurinol 2020-0 Yes 200mg Take 200 U nivers 100 mg 8-26 mg by ity of tablet 00:01: mouth [place] 26 daily. Medical Branch solifenacin 2020-0 Yes 5mg Take 5 mg U nivers (VESICARE) 8-26 by mouth ity o f 5 mg tablet 00:01: daily. [address] Branch baclofen 10 2020-0 Yes 10mg Take 10 mg Univers mg tablet 8-26 by mouth 3 ity of 00:01: (three) [place] 26 times Medical daily as Branch needed. allopurinol 2020-0 Yes 200mg Take 200 U nivers 100 mg 8-26 mg by ity of tablet 00:01: mouth [place] 26 daily. Medical Branch solifenacin 2020-0 Yes 5mg Take 5 mg U nivers (VESICARE) 8-26 by mouth ity o f 5 mg tablet 00:01: daily. [facility] Branch baclofen 10 2020-0 Yes 10mg Take 10 mg Univers mg tablet 12-18 by mouth 3 ity of 00:: (three) [place] times Medical daily as Branch needed. allopurinol 2020-0 Yes 200mg Take 200 U nivers 100 mg 8-26 mg by ity of tablet 00:01: mouth [place] daily. Medical Branch solifenacin 2020-0 Yes 5mg Take 5 mg U nivers (VESICARE) 8- by mouth ity o f 5 mg tablet 00:01: daily. [facility] Branch baclofen 10 2020-0 Yes 10mg Take 10 mg Univers mg tablet 12-18 by mouth 3 ity of 00:: (three) [place] times Medical daily as Branch needed. allopurinol 2020-0 Yes 200mg Take 200 U nivers 100 mg 8-26 mg by ity of tablet 00:01: mouth [place] daily. Medical Branch solifenacin 2020-0 Yes 5mg Take 5 mg U nivers (VESICARE) 8- by mouth ity o f 5 mg tablet 00:01: daily. [facility] Branch baclofen 10 2020-0 Yes 10mg Take 10 mg Univers mg tablet 12-18 by mouth 3 ity of 00:: (three) [place] times Medical daily as Branch needed. allopurinol 2020-0 Yes 200mg Take 200 U nivers 100 mg 8-26 mg by ity of tablet 00:01: mouth [place] daily. Medical Branch solifenacin 2020-0 Yes 5mg Take 5 mg U nivers (VESICARE) 8- by mouth ity o f 5 mg tablet 00:01: daily. [facility] Medical Branch baclofen 10 2020-0 Yes 10mg Take 10 mg Univers mg tablet 12-18 by mouth 3 ity of 00:01: (three) [place] times Medical daily as Branch needed. allopurinol 2020-0 Yes 200mg Take 200 U nivers 100 mg 8-26 mg by ity of tablet 00:01: mouth [place] daily. Medical Branch solifenacin 2020-0 Yes 5mg Take 5 mg U nivers (VESICARE) 8-26 by mouth ity o f 5 mg tablet 00:01: daily. [facility] 26 Medical Branch baclofen 10 2019-0 Yes 10mg Take 10 mg Univers mg tablet 12-18 by mouth 3 ity of 00:01: (three) [place] 26 times Medical daily as Branch needed. baclofen 10 2019-0 Yes 10mg Take 10 mg Univers mg tablet 12-18 by mouth 3 ity of 00:01: (three) [place] 26 times Medical daily as Branch needed. levothyroxi 2020- No [id number] 88ug Take 1 Univers ne 88 mcg 8-26 02-23 tablet by ity of tablet 00:00: 05:59 mouth [place] 00 :00 every Medical morning Branch for 180 days. levothyroxi 2020- No [id number] 88ug Take 1 Univers ne 88 mcg 8-26 02-23 tablet by ity of tablet 00:00: 05:59 mouth [place] 00 :00 every Medical morning Branch for 180 days. levothyroxi 2020- No [id number] 88ug Take 1 Univers ne 88 mcg 8-26 02-23 tablet by ity of tablet 00:00: 05:59 mouth [place] 00 :00 every Medical morning Branch for 180 days. levothyroxi 2020- No [id number] 88ug Take 1 Univers ne 88 mcg 8-26 02-23 tablet by ity of tablet 00:00: 05:59 mouth [place] 00 :00 every Medical morning Branch for 180 days. levothyroxi 2020- No [id number] 88ug Take 1 Univers ne 88 mcg 8-26 02-23 tablet by ity of tablet 00:00: 05:59 mouth [place] 00 :00 every Medical morning Branch for 180 days. levothyroxi 2020- No [id number] 88ug Take 1 Univers ne 88 mcg 8-26 02-23 tablet by ity of tablet 00:00: 05:59 mouth [place] 00 :00 every Medical morning Branch for 180 days. levothyroxi 2019-2020- No [id number] 88ug Take 1 Univers ne 88 mcg 8-26 02-23 tablet by ity of tablet 00:00: 05:59 mouth [place] 00 :00 every Medical morning Branch for 180 days. levothyroxi 2019-2020- No [id number] 88ug Take 1 Univers ne 88 mcg 8-26 02-23 tablet by ity of tablet 00:00: 05:59 mouth [place] 00 :00 every Medical morning Branch for 180 days. levothyroxi 2019-0 2020- No [id number] 88ug Take 1 Univers ne 88 mcg 8-26 02-23 tablet by ity of tablet 00:00: 05:59 mouth [place] 00 :00 every Medical morning Branch for 180 days. furosemide 2019-2019- No [id number] 80mg Take 2 Univers 40 mg 8-26 10-26 tablets by ity of tablet 00:00: 04:59 mouth [place] 00 :00 every Medical morning Branch for 60 days. furosemide 2019- No [id number] 80mg Take 2 Univers 40 mg 8-26 10-26 tablets by ity of tablet 00:00: 04:59 mouth [place] 00 :00 every Medical morning Branch for 60 days. furosemide 2019- No [id number] 80mg Take 2 Univers 40 mg 8-26 10-26 tablets by ity of tablet 00:00: 04:59 mouth [place] 00 :00 every Medical morning Branch for 60 days. furosemide 2019- No [id number] 80mg Take 2 Univers 40 mg 8-26 10-26 tablets by ity of tablet 00:00: 04:59 mouth [place] 00 :00 every Medical morning Branch for 60 days. furosemide 2019- No [id number] 80mg Take 2 Univers 40 mg 8-26 10-26 tablets by ity of tablet 00:00: 04:59 mouth [place] 00 :00 every Medical morning Branch for 60 days. furosemide 2019-2019- No [id number] 80mg Take 2 Univers 40 mg 8-26 10-26 tablets by ity of tablet 00:00: 04:59 mouth [place] 00 :00 every Medical morning Branch for 60 days. furosemide 2019- No [id number] 80mg Take 2 Univers 40 mg 8-26 10-26 tablets by ity of tablet 00:00: 04:59 mouth [place] 00 :00 every Medical morning Branch for 60 days. furosemide 2019- No [id number] 80mg Take 2 Univers 40 mg 8-26 10-26 tablets by ity of tablet 00:00: 04:59 mouth [place] 00 :00 every Medical morning Branch for 60 days. furosemide 2019- No [id number] 80mg Take 2 Univers 40 mg 8-26 10-26 tablets by ity of tablet 00:00: 04:59 mouth [place] 00 :00 every Medical morning Branch for 60 days. furosemide 2020-0 2020- No 40mg Take 40 mg Univers 40 mg 12-17 by mouth. ity of tablet 20:12: 00:00 [place] 50 :00 Medical Branch KCL 2020-0 2020- No 20meq 20 mEq, Univers (KLOR-CON 12-17 Oral, ity of M20) tablet 18:35: 18:46 ONCE, 1 [place] 20 mEq 00 :00 dose, [facility] Medical 12/18/19 at Branch 1345, Routine KCL 2020-0 2020- No 40meq 40 mEq, Univers (KLOR-CON 12-17 Oral, ity of M20) tablet 16:00: 17:25 ONCE, 1 [place] 40 mEq 00 :00 dose, [facility] 12/18/19 at Branch 1100, Routine propofoL IV 2020-0 2020- No Intravenou Univers infusion 12-17 s, ONCE ity of 15:45: 16:19 INTRA [place] 00 :14 PROCEDURE, Medical Starting Branch [facility] 12/18/19 at 1045, Until 12/18/19 at 1119, Routine, Intra-op lidocaine 2019-0 2020- No ONCE INTRA U nivers 1% 12-17 PROCEDURE, ity of (XYLOCAINE) 15:45: 16:19 Starting [place] 100 mg/10 00 :08 Tu Medical mL (1 %) 12/18/19 at [facility] h injection 1045, Until 12/18/19 at 1119, Routine, Intra-op baclofen 10 2019-0 Yes 10mg Take 10 mg Univers mg tablet 12-17 by mouth 3 ity of 15:28: (three) [place] 55 times Medical daily as Branch needed. lactated 2020-0 2020- No IV Univers ringers IV 12-17 Infusion, ity of infusion 15:25: 16:17 CONTINUOUS [place] 00 :44 PRN, [facility] Starting Branch e 12/18/19 at 1025, Until Tu12/18/19 at 1117, Routine, Intra-op KCL 2020-0 2020- No 40meq 40 mEq, IV Unive rs (POTASSIUM 12-17 Piggyback, it y of CHLORIDE) 11:49: 13:56 ONCE, 1 [place] 40 mEq [place] 00 :00 dose, Tue Medic al NaCl 0.9% 12/18/19 at [facility] (NS) 0700, 250 piggyback mL metoprolol [id number] 12.5mg Take 0.5 Univers tartrate 25 8-22 tablets by i ty of mg tablet 00:00: 05:59 mouth 2 [place] 00 :[place] (two) Medical times Branch daily for 180 days. metoprolol [id number] 12.5mg Take 0.5 Univers tartrate 25 8-22 tablets by i ty of mg tablet 00:00: 05:59 mouth 2 [place] 00 :[place] (two) Medical times Branch daily for 180 days. metoprolol [id number] 12.5mg Take 0.5 Univers tartrate 25 12-17 tablets by i ty of mg tablet 00:00: 05:59 mouth 2 [place] 00 :[place] (two) Medical times Branch daily for 180 days. metoprolol [id number] 12.5mg Take 0.5 Univers tartrate 25 12-17 tablets by i ty of mg tablet 00:00: 05:59 mouth 2 [place] 00 :00 (two) Medical times Branch daily for 180 days. metoprolol [id number] 12.5mg Take 0.5 Univers tartrate 25 12-17 tablets by i ty of mg tablet 00:00: 05:59 mouth 2 [place] 00 :00 (two) Medical times Branch daily for 180 days. metoprolol [id number] 12.5mg Take 0.5 Univers tartrate 25 806-16 tablets by i ty of mg tablet 00:00: 05:59 mouth 2 [place] 00 :00 (two) Medical times Branch daily for 180 days. metoprolol [id number] 12.5mg Take 0.5 Univers tartrate 25 8-22 tablets by i ty of mg tablet 00:00: 05:59 mouth 2 [place] 00 :00 (two) Medical times Branch daily for 180 days. metoprolol [id number] 12.5mg Take 0.5 Univers tartrate 25 8-25 02-22 tablets by i ty of mg tablet 00:00: 05:59 mouth 2 [place] 00 :00 (two) Medical times Branch daily for 180 days. metoprolol No [id number] 12.5mg Take 0.5 Univers tartrate 25 8-25 02-22 tablets by i ty of mg tablet 00:00: 05:59 mouth 2 [place] 00 :00 (two) Medical times Branch daily for 180 days. apixaban 2019- No 1358 2.5mg Take 1 Unive rs 2.5 mg 8-25 10-25 tablet by ity of tablet 00:00: 04:59 mouth 2 [place] 00 :00 (two) Medical times Branch daily for 60 days. Indication s: atrial fibrillati on furosemide No [id number] 40mg Take 1 Univers 40 mg 8-25 10-25 tablet by ity of tablet 00:00: 04:59 mouth [place] 00 :00 every Medical evening Branch for 60 days. apixaban No 1358 2.5mg Take 1 Unive rs 2.5 mg 8-25 10-25 tablet by ity of tablet 00:00: 04:59 mouth 2 [place] 00 :00 (two) Medical times Branch daily for 60 days. Indication s: atrial fibrillati on furosemide No [id number] 40mg Take 1 Univers 40 mg 8-25 10-25 tablet by ity of tablet 00:00: 04:59 mouth [place] 00 :00 every Medical evening Branch for 60 days. apixaban 2019- No 1358 2.5mg Take 1 Unive rs 2.5 mg 8-25 10-25 tablet by ity of tablet 00:00: 04:59 mouth 2 [place] 00 :00 (two) Medical times Branch daily for 60 days. Indication s: atrial fibrillati on furosemide 2019- No [id number] 40mg Take 1 Univers 40 mg 8-25 10-25 tablet by ity of tablet 00:00: 04:59 mouth [place] 00 :00 every Medical evening Branch for 60 days. apixaban 2019- No 1358 2.5mg Take 1 Unive rs 2.5 mg 8-25 10-25 tablet by ity of tablet 00:00: 04:59 mouth 2 [place] 00 :00 (two) Medical times Branch daily for 60 days. Indication s: atrial fibrillati on furosemide 2020-0 2020- No [id number] 40mg Take 1 Univers 40 mg 8-25 10-25 tablet by ity of tablet 00:00: 04:59 mouth [place] 00 :00 every Medical evening Branch for 60 days. apixaban 2020-0 2020- No 1358 2.5mg Take 1 Unive rs 2.5 mg 8-25 10-25 tablet by ity of tablet 00:00: 04:59 mouth 2 [place] 00 :00 (two) Medical times Branch daily for 60 days. Indication s: atrial fibrillati on furosemide 2020-0 2020- No [id number] 40mg Take 1 Univers 40 mg 8-25 10-25 tablet by ity of tablet 00:00: 04:59 mouth [place] 00 :00 every Medical evening Branch for 60 days. apixaban 2020-0 2020- No 1358 2.5mg Take 1 Unive rs 2.5 mg 8-25 10-25 tablet by ity of tablet 00:00: 04:59 mouth 2 [place] 00 :00 (two) Medical times Branch daily for 60 days. Indication s: atrial fibrillati on furosemide 2020-0 2020- No [id number] 40mg Take 1 Univers 40 mg 8-25 10-25 tablet by ity of tablet 00:00: 04:59 mouth [place] 00 :00 every Medical evening Branch for 60 days. apixaban 2020-0 2020- No 1358 2.5mg Take 1 Unive rs 2.5 mg 8-25 10-25 tablet by ity of tablet 00:00: 04:59 mouth 2 [place] 00 :00 (two) Medical times Branch daily for 60 days. Indication s: atrial fibrillati on furosemide 2020-0 2020- No [id number] 40mg Take 1 Univers 40 mg 8-25 10-25 tablet by ity of tablet 00:00: 04:59 mouth [place] 00 :00 every Medical evening Branch for 60 days. apixaban 2020-0 2020- No 1358 2.5mg Take 1 Unive rs 2.5 mg 8-25 10-25 tablet by ity of tablet 00:00: 04:59 mouth 2 [place] 00 :00 (two) Medical times Branch daily for 60 days. Indication s: atrial fibrillati on furosemide 2020-0 2020- No [id number] 40mg Take 1 Univers 40 mg 8-25 10-25 tablet by ity of tablet 00:00: 04:59 mouth [place] 00 :00 every Medical evening Branch for 60 days. apixaban 2019-0 2019- No 1358 2.5mg Take 1 Unive rs 2.5 mg 8-25 10-25 tablet by ity of tablet 00:00: 04:59 mouth 2 [place] 00 :00 (two) Medical times Branch daily for 60 days. Indication s: atrial fibrillati on furosemide 2019-0 2019- No [id number] 40mg Take 1 Univers 40 mg 8-25 10-25 tablet by ity of tablet 00:00: 04:59 mouth [place] 00 :00 every Medical evening Branch for 60 days. furosemide 2020-0 Yes 40mg 40 mg, Unive rs (LASIX) 8-24 Oral, QPM, ity of tablet 40 22:00: First dose [place] mg 00 on [facility] 12/17/19 at Branch 1700, Until Discontinu ed, Routine NaCl 0.9% 2019-0 Yes 10mL 10 mL, Univer s (NS) 824 Slow IV ity of injection 15:12: Push, PRN, [place] 10 mL 22 Starting Medical [facility] Branch 12/17/19 at 1012, Until Discontinu ed, Routine, line maintenanc e lidocaine 2019-0 Yes 5mL 5 mL, Univers 1% (PF) 12-16 Subcutaneo ity of (XYLOCAINE) 15:12: us, PRN, [place] injection 5 22 Starting Medi gustavo mL [facility] 12/17/19 at 1012, Until Discontinu ed, Routine, Local anesthesia furosemide 2019-0 Yes 80mg 80 mg, Unive rs (LASIX) 824 Oral, QAM, ity of tablet 80 14:00: First dose [place] mg 00 (after Medical last Branch modificati on) on [facility] 12/17/19 at 0900, Until Discontinu ed, Routine allopurinoL 2019-0 Yes 200mg 200 mg, Un neo (ZYLOPRIM) 8-24 Oral, ity of tablet 200 14:00: DAILY, [place] mg 00 First dose Medical on [facility] Branch 12/17/19 at 0900, Until Discontinu ed, Routine metoprolol 2019-0 Yes 12.5mg 12.5 mg, U nivers tartrate 8-24 Oral, BID, ity o f (LOPRESSOR) 13:00: First dose [place] half tablet 00 on [facility] Medica l 12.5 mg 12/17/19 at Branch 0800, Until Discontinu ed, Routine gabapentin 2020-0 Yes 100mg 100 mg, Uni vers (NEURONTIN) 8-24 Oral, TID, it y of capsule 100 13:00: First dose [place] mg 00 on [facility] 12/17/19 at Branch 0800, Until Discontinu ed, Routine levothyroxi 2020-0 Yes 88ug 88 mcg, Uni vers ne 824 Oral, ity of (SYNTHROID) 11:00: QAM-0600, [place] tablet 88 00 First dose Medi gustavo mcg on [facility] 12/17/19 at 0600, Until Discontinu ed, Routine furosemide 2020-0 Yes 40mg Take 40 mg U nivers 40 mg 8-24 by mouth. ity of tablet 05:20: [address] allopurinol 2020-0 Yes 200mg Take 200 U nivers 100 mg 8-24 mg by ity of tablet 05:20: mouth [place] 04 daily. [facility] Branch solifenacin 2020-0 Yes 5mg Take 5 mg U nivers (VESICARE) 824 by mouth ity o f 5 mg tablet 05:20: daily. [place] 04 [facility] acetaminoph 2020-0 Yes 650mg 650 mg, Un neo en 12-16 Oral, ity of (TYLENOL) 05:19: Q6HPRN, [place] tablet 650 20 Starting Medic al mg [facility] 12/17/19 at 0019, Until Discontinu ed, Routine, Pain (scale 1-3) pantoprazol 2020-0 Yes 8mg/h 8 mg/hr Un neo e 824 (50 ity of (PROTONIX) 00:15: mL/hr), IV [place] 80 mg in 00 Infusion, Medica l NaCl 0.9% CONTINUOUS Bran ch (NS) 500 mL , Starting infusion [place] 12/16/19 at 1915 pantoprazol 2020-0 2020- No 80mg 80 mg, IV Univers e 8 0824 Push, ity of (PROTONIX) 00:15: 00:17 ONCE, 1 [place] 80 mg in 00 :00 dose, [place] [facility] NaCl 0.9% 8/23/20 at [facility] (NS) 20 mL 1914, 20 syringe mL ondansetron 2019- No 4mg 4 mg, Slow Univers (ZOFRAN 12-16 IV Push, ity of (PF)) 00:15: 23:22 ONCE, 1 [place] injection 4 00 :00 dose, [place] [facility] ical mg 12/16/19 at Branch 191, MASTER ezetimibe-s Yes TAKE 1 Univ ers imvastatin 8-20 TABLET BY ity of 10-20 10-20 00:00: MOUTH [place] mg tablet 00 EVERY DAY Medic al AT NIGHT Branch ezetimibe-s Yes TAKE 1 Univ ers imvastatin 8-20 TABLET BY ity of 10-20 10-20 00:00: MOUTH [place] mg tablet 00 EVERY DAY Medic al AT NIGHT Branch ezetimibe-s Yes TAKE 1 Univ ers imvastatin 8-20 TABLET BY ity of 10-20 10-20 00:00: MOUTH [place] mg tablet 00 EVERY DAY Medic al AT NIGHT Branch ezetimibe-s Yes TAKE 1 Univ ers imvastatin 8-20 TABLET BY ity of 10-20 10-20 00:00: MOUTH [place] mg tablet 00 EVERY DAY Medic al AT NIGHT Branch ezetimibe-s Yes TAKE 1 Univ ers imvastatin 8-20 TABLET BY ity of 10-20 10-20 00:00: MOUTH [place] mg tablet 00 EVERY DAY Medic al AT NIGHT Branch ezetimibe-s Yes TAKE 1 Univ ers imvastatin 8-20 TABLET BY ity of 10-20 10-20 00:00: MOUTH [place] mg tablet 00 EVERY DAY Medic al AT NIGHT Branch ezetimibe-s 2020- No TAKE 1 Uni vers imvastatin 8-20 06-01 TABLET BY ity of 10-20 10-20 00:00: 00:00 MOUTH [place] mg tablet 00 :00 EVERY DAY Medic al AT NIGHT Branch amLODIPine- Yes TAKE 1 Univ ers benazepriL 7-17 CAPSULE BY ity of 10-20 mg 00:00: MOUTH 1 [place] per capsule 00 (ONE) TIME Me dical EACH DAY Branch amLODIPine- Yes TAKE 1 Univ ers benazepriL 7-17 CAPSULE BY ity of 10-20 mg 00:00: MOUTH 1 [place] per capsule 00 (ONE) TIME Me dical EACH DAY Branch amLODIPine- 2020-0 Yes TAKE 1 Univ ers benazepriL 7-17 CAPSULE BY ity of 10-20 mg 00:00: MOUTH 1 [place] per capsule 00 (ONE) TIME Me dical EACH DAY Branch amLODIPine- 2020-0 Yes TAKE 1 Univ ers benazepriL 7-17 CAPSULE BY ity of 10-20 mg 00:00: MOUTH 1 [place] per capsule 00 (ONE) TIME Me dical EACH DAY Branch amLODIPine- 2020-0 Yes TAKE 1 Univ ers benazepriL 7-17 CAPSULE BY ity of 10-20 mg 00:00: MOUTH 1 [place] per capsule 00 (ONE) TIME Me dical EACH DAY Branch amLODIPine- 2020-0 Yes TAKE 1 Univ ers benazepriL 7-17 CAPSULE BY ity of 10-20 mg 00:00: MOUTH 1 [place] per capsule 00 (ONE) TIME Me dical EACH DAY Branch amLODIPine- 2020-0 2020- No TAKE 1 Uni vers benazepriL 7-17 06-01 CAPSULE BY it y of 10-20 mg 00:00: 00:00 MOUTH 1 [place] per capsule 00 :00 (ONE) TIME Me dical EACH DAY Branch fluticasone 2020-0 Yes 2{spray Use 2 Un neo propionate 3-02 } Sprays in ity of 50 00:00: each [place] mcg/actuati 00 nostril 2 Med ical on nasal (two) Branch spray times daily. fluticasone 2020-0 Yes 2{spray Use 2 Un neo propionate 3-02 } Sprays in ity of 50 00:00: each [place] mcg/actuati 00 nostril 2 Med ical on nasal (two) Branch spray times daily. fluticasone 2020-0 Yes 2{spray Use 2 Un neo propionate 3-02 } Sprays in ity of 50 00:00: each [place] mcg/actuati 00 nostril 2 Med ical on nasal (two) Branch spray times daily. fluticasone 2020-0 Yes 2{spray Use 2 Un neo propionate 3-02 } Sprays in ity of 50 00:00: each [place] mcg/actuati 00 nostril 2 Med ical on nasal (two) Branch spray times daily. fluticasone 2020-0 Yes 2{spray Use 2 Un neo propionate 3-02 } Sprays in ity of 50 00:00: each [place] mcg/actuati 00 nostril 2 Med ical on nasal (two) Branch spray times daily. fluticasone 2020-0 Yes 2{spray Use 2 Un neo propionate 3-02 } Sprays in ity of 50 00:00: each [place] mcg/actuati 00 nostril 2 Med ical on nasal (two) Branch spray times daily. fluticasone 2020-0 Yes 2{spray Use 2 Un neo propionate 3-02 } Sprays in ity of 50 00:00: each [place] mcg/actuati 00 nostril 2 Med ical on nasal (two) Branch spray times daily. fluticasone 2020-0 Yes 2{spray Use 2 Un neo propionate 3-02 } Sprays in ity of 50 00:00: each [place] mcg/actuati 00 nostril 2 Med ical on nasal (two) Branch spray times daily. fluticasone 2020-0 Yes 2{spray Use 2 Un neo propionate 3-02 } Sprays in ity of 50 00:00: each [place] mcg/actuati 00 nostril 2 Med ical on nasal (two) Branch spray times daily. fluticasone 2020-0 Yes 2{spray Use 2 Un neo propionate 3-02 } Sprays in ity of 50 00:00: each [place] mcg/actuati 00 nostril 2 Med ical on nasal (two) Branch spray times daily. fluticasone 2020-0 Yes 2{spray Use 2 Un neo propionate 3-02 } Sprays in ity of 50 00:00: each [place] mcg/actuati 00 nostril 2 Med ical on nasal (two) Branch spray times daily. fluticasone 2020-0 2020- No 2{spray Use 2 U nivers propionate 3-02 06- } Sprays in ity of 50 00:00: 00:00 each [place] mcg/actuati 00 :00 nostril 2 Med ical on nasal (two) Branch spray times daily. PYRIDOSTIGM 2018- Yes [id number] TAKE ONE Univers INE 60 mg 9-24 TABLET BY ity o f tablet 00:00: MOUTH [place] 00 TWICE A Medical DAY FOR Branch JAW WEAKNESS. PYRIDOSTIGM 2019- No [id number] TAKE ONE Univers INE 60 mg 9-24 08-24 TABLET BY ity of tablet 00:00: 00:00 MOUTH [place] 00 :00 TWICE A Medical DAY FOR Branch JAW WEAKNESS. pyridostigm Yes [id number] TAKE ONE Univers ine 60 mg 8-30 TABLET BY ity o f tablet 00:00: MOUTH [place] 00 TWICE A Medical DAY FOR Branch JAW WEAKNESS. pyridostigm 2018- Yes [id number] TAKE 1/2 Univers ine 60 mg 8-20 TABLET BY ity o f tablet 00:00: MOUTH [place] 00 TWICE A Medical DAY FOR Branch JAW WEAKNESS. pyridostigm 2019- No [id number] TAKE 1/2 Univers ine 60 mg 8-20 08-30 TABLET BY ity of tablet 00:00: 00:00 MOUTH [place] 00 :00 TWICE A Medical DAY FOR Branch JAW WEAKNESS. pyridostigm 2019- No [id number] Take 1/2 Univers ine 60 mg 7-23 08-19 by mouth ity o f tablet 00:00: 00:00 BID for [place] 00 :00 jaw Medical weakness. Branch furosemide 0 Yes 40mg Take 40 mg U nivers 40 mg 5-09 by mouth. ity of tablet 21:01: [address] Branch allopurinol 2018-0 Yes 100mg Take 100 U nivers 100 mg 5-09 mg by ity of tablet 21:01: mouth [place] [address] daily. Medical Branch solifenacin 0 Yes 5mg Take 5 mg U nivers (VESICARE) 5-09 by mouth ity o f 5 mg tablet 21:01: daily. [address] furosemide 2018-0 Yes 40mg Take 40 mg U nivers 40 mg 5-09 by mouth. ity of tablet 21:01: [address] Branch allopurinol 2018-0 Yes 100mg Take 100 U nivers 100 mg 5-09 mg by ity of tablet 21:01: mouth [place] [address] daily. Medical Branch solifenacin 2019-0 Yes 5mg Take 5 mg U nivers (VESICARE) 5-09 by mouth ity o f 5 mg tablet 21:01: daily. [address] furosemide 2018-0 Yes 40mg Take 40 mg U nivers 40 mg 5-09 by mouth. ity of tablet 21:01: [place] 43 Medical Branch allopurinol 2019-0 Yes 100mg Take 100 U nivers 100 mg 5-09 mg by ity of tablet 21:01: mouth [place] [address] daily. Medical Branch solifenacin 2019-0 Yes 5mg Take 5 mg U nivers (VESICARE) 5-09 by mouth ity o f 5 mg tablet 21:01: daily. [facility] 43 Medical Branch gabapentin 2019-0 Yes [id number] 100mg Take 1 Univers 100 mg 5-09 capsule by ity of capsule 00:00: mouth [address] [place] [address] 00 ([facility] health system) Medical times Branch daily. gabapentin 2019-0 Yes [id number] 100mg Take 1 Univers 100 mg 5-09 capsule by ity of capsule 00:00: mouth [address] [place] [address] 00 (up health system) Medical times Branch daily. gabapentin 2019-0 Yes [id number] 100mg Take 1 Univers 100 mg 5-09 capsule by ity of capsule 00:00: mouth [address] [place] [address] (up health system) Medical times Branch daily. gabapentin 2019-0 Yes [id number] 100mg Take 1 Univers 100 mg 5-09 capsule by ity of capsule 00:00: mouth [address] [place] [address] (up health system) Medical times Branch daily. gabapentin 2019-0 Yes [id number] 100mg Take 1 Univers 100 mg 5-09 capsule by ity of capsule 00:00: mouth [address] [place] [address] (up health system) Medical times Branch daily. gabapentin 2019-0 Yes [id number] 100mg Take 1 Univers 100 mg 5-09 capsule by ity of capsule 00:00: mouth [address] [place] [address] (up health system) Medical times Branch daily. gabapentin 2019-0 Yes [id number] 100mg Take 1 Univers 100 mg 5-09 capsule by ity of capsule 00:00: mouth [address] [place] [address] (up health system) Medical times Branch daily. gabapentin 2019-0 Yes [id number] 100mg Take 1 Univers 100 mg 5-09 capsule by ity of capsule 00:00: mouth [address] [place] [address] (three) Medical times Branch daily. gabapentin 2019-0 Yes [id number] 100mg Take 1 Univers 100 mg 5-09 capsule by ity of capsule 00:00: mouth [address] [place] [address] 00 (up health system) Medical times Branch daily. gabapentin 2019-0 Yes [id number] 100mg Take 1 Univers 100 mg 5-09 capsule by ity of capsule 00:00: mouth [address] [place] [address] 00 (three) Medical times Branch daily. gabapentin 2019-0 Yes [id number] 100mg Take 1 Univers 100 mg 5-09 capsule by ity of capsule 00:00: mouth 3 [place] 00 (three) Medical times Branch daily. gabapentin 2019- Yes [id number] 100mg Take 1 Univers 100 mg 5-09 capsule by ity of capsule 00:00: mouth 3 [place] 00 (three) Medical times Branch daily. gabapentin 2019-0 Yes [id number] 100mg Take 1 Univers 100 mg 5-09 capsule by ity of capsule 00:00: mouth 3 [place] 00 (three) Medical times Branch daily. gabapentin 2019-0 Yes [id number] 100mg Take 1 Univers 100 mg 5-09 capsule by ity of capsule 00:00: mouth 3 [place] 00 (three) Medical times Branch daily. gabapentin 2018-2020- No [id number] 100mg Take 1 Univers 100 mg 5-09 - capsule by ity of capsule 00:00: 00:00 mouth 3 [place] 00 :00 (three) Medical times Branch daily. ezetimibe-s 2016-0 Yes Take by Un neo imvastatin 9-30 mouth. ity of 02-11 00:00: [place] (VYTORIN 00 Medical 02/11) Branch 10-20 mg tablet ezetimibe-s 2015-0 Yes Take by Un neo imvastatin 9-30 mouth. ity of 02-11 00:00: [place] (VYTORIN Medical 02/11) Branch 10-20 mg tablet ezetimibe-s 2015-0 Yes Take by Un neo imvastatin 9-30 mouth. ity of 02-11 00:00: [place] (VYTORIN Medical 02/11) Branch 10-20 mg tablet ezetimibe-s 2015-0 Yes Take by Un neo imvastatin 9-30 mouth. ity of 02-11 00:00: [place] (VYTORIN Medical 02/11) Branch 10-20 mg tablet ezetimibe-s 2015-0 2020- No Take by U nivers imvastatin 9-30 08-25 mouth. ity of - 00:00: 00:00 [place] (VYTORIN 00 : Medical 02/11) Branch 10-20 mg tablet metoprolol 2015- Yes TAKE 1/2 Uni vers tartrate 25 9-24 TABLET BY ity of mg tablet 00:00: MOUTH 2 [place] 00 TIMES A Medical DAY Branch metoprolol 2015-0 Yes TAKE 1/2 Uni vers tartrate 25 9-24 TABLET BY ity of mg tablet 00:00: MOUTH 2 TIMES A Medical DAY Branch metoprolol Yes TAKE 1/2 Uni vers tartrate 25 9-24 TABLET BY ity of mg tablet 00:00: MOUTH 2 TIMES A Medical DAY Branch metoprolol Yes TAKE 1/2 Uni vers tartrate 25 9-24 TABLET BY ity of mg tablet 00:00: MOUTH 2 TIMES A Medical DAY Branch metoprolol 2020- No TAKE 1/2 Un neo tartrate 25 9-24 08-25 TABLET BY it y of mg tablet 00:00: 00:00 MOUTH 2 [place] 00 :00 TIMES A Medical DAY Branch levothyroxi Yes TAKE 1 Univ ers ne 88 mcg 9-22 TABLET BY ity o f tablet 00:00: MOUTH ONCE 00 A DAY TAKE Medical 1 TABLET Branch BY MOUTH EVERY DAY levothyroxi Yes TAKE 1 Univ ers ne 88 mcg 9-22 TABLET BY ity o f tablet 00:00: MOUTH ONCE A DAY TAKE Medical 1 TABLET Branch BY MOUTH EVERY DAY levothyroxi Yes TAKE 1 Univ ers ne 88 mcg 9-22 TABLET BY ity o f tablet 00:00: MOUTH ONCE A DAY TAKE Medical 1 TABLET Branch BY MOUTH EVERY DAY levothyroxi Yes TAKE 1 Univ ers ne 88 mcg 9-22 TABLET BY ity o f tablet 00:00: MOUTH ONCE A DAY TAKE Medical 1 TABLET Branch BY MOUTH EVERY DAY levothyroxi 2020- No TAKE 1 Uni vers ne 88 mcg 9-22 08-25 TABLET BY ity of tablet 00:00: 00:00 MOUTH ONCE [place] 00 :00 A DAY TAKE Medical 1 TABLET Branch BY MOUTH EVERY DAY apixaban Yes TAKE 1 Univers (ELIQUIS) 5 9-21 TABLET ity of mg tablet 00:00: (5MG) BY [place] 00 ORAL ROUTE Medical 2 TIMES Branch EVERY DAY KCL 20 mEq Yes TAKE 2 Unive rs tablet 9-21 TABLET BY ity of 00:00: MOUTH ONCE A DAY Medical Branch KCL 20 mEq Yes TAKE 2 Unive rs tablet 9-21 TABLET BY ity of 00:00: MOUTH ONCE [place] 00 A DAY Medical Branch KCL 20 mEq Yes TAKE 2 Unive rs tablet 9-21 TABLET BY ity of 00:00: MOUTH ONCE Medical Branch KCL 20 mEq Yes TAKE 2 Unive rs tablet 9-21 TABLET BY ity of 00:00: MOUTH ONCE Medical Branch KCL 20 mEq Yes TAKE 2 Unive rs tablet 9-21 TABLET BY ity of 00:00: MOUTH ONCE Medical Branch KCL 20 mEq Yes TAKE 2 Unive rs tablet 9-21 TABLET BY ity of 00:00: MOUTH ONCE Medical Branch KCL 20 mEq Yes TAKE 2 Unive rs tablet 9-21 TABLET BY ity of 00:00: MOUTH ONCE Medical Branch KCL 20 mEq Yes TAKE 2 Unive rs tablet 9-21 TABLET BY ity of 00:00: MOUTH ONCE Medical Branch KCL 20 mEq Yes TAKE 2 Unive rs tablet 9-21 TABLET BY ity of 00:00: MOUTH ONCE Medical Branch KCL 20 mEq Yes TAKE 2 Unive rs tablet 9-21 TABLET BY ity of 00:00: MOUTH ONCE Medical Branch KCL 20 mEq Yes TAKE 2 Unive rs tablet 9-21 TABLET BY ity of 00:00: MOUTH ONCE Medical Branch apixaban Yes TAKE 1 Univers (ELIQUIS) 5 9-21 TABLET ity of mg tablet 00:00: (5MG) [place] ORAL ROUTE Medical 2 TIMES Branch EVERY KCL 20 mEq Yes TAKE 2 Unive rs tablet 9-21 TABLET BY ity of 00:00: MOUTH ONCE Medical Branch apixaban Yes TAKE 1 Univers (ELIQUIS) 5 9-21 TABLET ity of mg tablet 00:00: (5MG) BY [place] ORAL ROUTE Medical 2 TIMES Branch EVERY DAY KCL 20 mEq Yes TAKE 2 Unive rs tablet 9-21 TABLET BY ity of 00:00: MOUTH ONCE Medical Branch apixaban Yes TAKE 1 Univers (ELIQUIS) 5 9-21 TABLET ity of mg tablet 00:00: (5MG) BY [place] ORAL ROUTE Medical 2 TIMES Branch EVERY DAY KCL 20 mEq Yes TAKE 2 Unive rs tablet 01-13 TABLET BY ity of 00:00: MOUTH ONCE [place] A Medical Branch KCL 20 mEq 2020- No TAKE 2 Univ ers tablet 01-13 TABLET BY ity of 00:00: 00:00 MOUTH ONCE [place] 00 :00 A DAY Medical Branch apixaban 2019- No TAKE 1 Univer s (ELIQUIS) 5 01-13 08 TABLET ity o f mg tablet 00:00: 00:00 (5MG) BY [place] 00 :00 ORAL ROUTE Medical 2 TIMES Branch EVERY DAY metOLazone Yes 2.5mg Take 2.5 Un neo 2.5 mg 7-21 mg by ity of tablet 00:00: mouth. Medical Branch metOLazone Yes 2.5mg Take 2.5 Un neo 2.5 mg 7-21 mg by ity of tablet 00:00: mouth. Medical Branch metOLazone Yes 2.5mg Take 2.5 Un neo 2.5 mg 7-21 mg by ity of tablet 00:00: mouth. Medical Branch metOLazone Yes 2.5mg Take 2.5 Un neo 2.5 mg 7-21 mg by ity of tablet 00:00: mouth. Medical Branch metOLazone 2020- No 2.5mg Take 2.5 U nivers 2.5 mg 7-21 08-25 mg by ity of tablet 00:00: 00:00 mouth. [place] 00 : Medical Branch pantoprazol Yes 40mg Take 40 mg Univers e 40 mg EC 7-19 by mouth. ity of tablet 00:00: [place] Medical Branch pantoprazol Yes 40mg Take 40 mg Univers e 40 mg EC 7-19 by mouth. ity of tablet 00:00: [place] Medical Branch pantoprazol Yes 40mg Take 40 mg Univers e 40 mg EC 7-19 by mouth. ity of tablet 00:00: [place] Medical Branch pantoprazol Yes 40mg Take 40 mg Univers e 40 mg EC 7-19 by mouth. ity of tablet 00:00: [place] Medical Branch pantoprazol 2016-0 Yes 40mg Take 40 mg Univers e 40 mg EC 7-19 by mouth. ity of tablet 00:00: [place] [facility] pantoprazol 2016-0 Yes 40mg Take 40 mg Univers e 40 mg EC 7-19 by mouth. ity of tablet 00:00: [address] pantoprazol 2016-0 Yes 40mg Take 40 mg Univers e 40 mg EC 7-19 by mouth. ity of tablet 00:00: [address] pantoprazol 2016-0 Yes 40mg Take 40 mg Univers e 40 mg EC 7-19 by mouth. ity of tablet 00:00: [address] pantoprazol 2016-0 Yes 40mg Take 40 mg Univers e 40 mg EC 7-19 by mouth. ity of tablet 00:00: [address] pantoprazol 2016-0 Yes 40mg Take 40 mg Univers e 40 mg EC 7-19 by mouth. ity of tablet 00:00: [address] pantoprazol 2016-0 Yes 40mg Take 40 mg Univers e 40 mg EC 7-19 by mouth. ity of tablet 00:00: [address] pantoprazol 2016-0 Yes 40mg Take 40 mg Univers e 40 mg EC 7-19 by mouth. ity of tablet 00:00: [address] pantoprazol 2016-0 Yes 40mg Take 40 mg Univers e 40 mg EC 7-19 by mouth. ity of tablet 00:00: [address] pantoprazol 2016-0 Yes 40mg Take 40 mg Univers e 40 mg EC 7-19 by mouth. ity of tablet 00:00: [address] pantoprazol 2016-0 2021- No 40mg Take 40 mg Univers e 40 mg EC 7-19 09-23 by mouth. ity of tablet 00:00: 00:00 [place] 00 :00 [facility] Immunizations Ordered Filled Immunization Date Status Comments [facility] e Immunization Name Name Influenza Virus 2019-12-21 Completed Universit y of Vaccine 00:00:00 [facility] Influenza Virus 2019-12-21 Completed Universit y of Vaccine 00:00:00 [facility] Influenza High Dose 2018-12-30 Completed Unive rsity of 00:00:00 [facility] Influenza High Dose 2018-12-30 Completed Unive rsity of 00:00:00 [facility] Influenza High Dose 2017-01-06 Completed Unive rsity of 00:00:00 [facility] Influenza High Dose 2017-01-06 Completed Unive rsity of 00:00:00 [facility] TDAP 2015-11-06 Completed University of 00:00:00 [facility] Pneumococcal 2015-11-06 Completed University o f Polysaccharide, 00:00:00 [place] [facility] ical PPSV23 (PNEUMOVAX) Branch TDAP 2015-11-06 Completed University of 00:00:00 [facility] Pneumococcal 2015-11-06 Completed University o f Polysaccharide, 00:00:00 [place] [facility] ical PPSV23 (PNEUMOVAX) Branch Influenza High Dose 2015-01-24 Completed Unive rsity of 00:00:00 [facility] Influenza High Dose 2015-01-24 Completed Unive rsity of 00:00:00 [facility] Vital Signs Vital Name Observation Time Observation Value Comments Source HEIGHT 2020-08-27 13:00:00 165.1 cm WEIGHT 2020-08-27 13:00:00 58.968 kg Respiratory rate 2020-09-23 17:05:00 20 /min [facility] Oxygen saturation in 2020-09-23 17:05:00 100 /min [facility] Arterial blood by [facility] Pulse oximetry Branch Systolic blood 2020-09-23 16:25:00 122 mm[Hg] Univer sity of pressure [facility] Diastolic blood 2020-09-23 16:25:00 80 mm[Hg] [facility] Heart rate 2020-09-23 16:25:00 75 /min [facility] Body temperature 2020-09-23 16:25:00 36.44 Tiffany Univ ersity of [facility] Body weight 2020-09-23 08:56:00 68.448 kg [facility] BMI 2020-09-23 08:56:00 24.36 kg/m2 [facility] Body height 2020-09-18 18:03:00 167.6 cm [facility] HEIGHT 2020-08-27 13:00:00 165.1 cm WEIGHT 2020-08-27 13:00:00 58.968 kg Heart rate 2020-02-18 15:00:00 94 /min [facility] Respiratory rate 2020-02-18 15:00:00 16 /min Univ ersity [facility] [place] [facility] Oxygen saturation in 2020-02-18 15:00:00 98 /min University of Arterial blood by [facility] Pulse oximetry Branch Systolic blood 2020-02-18 14:55:00 126 mm[Hg] Univer sity of pressure [place] [facility] Diastolic blood 2020-02-18 14:55:00 78 mm[Hg] Unive rsity of pressure [place] [facility] Body temperature 2020-02-18 14:10:00 36.28 Tiffany [facility] [place] [facility] Body height 2020-02-15 15:45:00 165.1 cm [facility] [place] [facility] Body weight 2020-02-15 15:45:00 59.875 kg [facility] [place] [facility] BMI 2020-02-15 15:45:00 21.97 kg/m2 [facility] [place] [facility] Heart rate 2020-02-18 15:00:00 94 /min [facility] [place] [facility] Respiratory rate 2020-02-18 15:00:00 16 /min Univ ers[facility] [place] [facility] Oxygen saturation in 2020-02-18 15:00:00 98 /min University of Arterial blood by [facility] Pulse oximetry Branch Systolic blood 2020-02-18 14:55:00 126 mm[Hg] Univer sity of pressure [place] [facility] Diastolic blood 2020-02-18 14:55:00 78 mm[Hg] Unive rsity of pressure [place] [facility] Body temperature 2020-02-18 14:10:00 36.28 Tiffany [facility] [place] [facility] Body height 2020-02-15 15:45:00 165.1 cm [facility] [place] [facility] Body weight 2020-02-15 15:45:00 59.875 kg [facility] [place] [facility] BMI 2020-02-15 15:45:00 21.97 kg/m2 [facility] [place] [facility] Systolic blood 2019-12-18 17:00:00 110 mm[Hg] Univer sity of pressure [place] [facility] Diastolic blood 2019-12-18 17:00:00 55 mm[Hg] Unive rsity of pressure [place] [facility] Heart rate 2019-12-18 17:00:00 74 /min [facility] [place] [facility] Body temperature 2019-12-18 17:00:00 36.44 Tiffany [facility] Respiratory rate 2019-12-18 17:00:00 18 /min [facility] Oxygen saturation in 2019-12-18 17:00:00 100 /min University of Arterial blood by [facility] Pulse oximetry Branch Body weight 2019-12-18 05:30:00 55.974 kg Universi ty [facility] BMI 2019-12-18 05:30:00 21.86 kg/m2 Universi ty [facility] Body height 2019-12-17 05:15:00 160 cm Universi ty [facility] Systolic blood 2019-12-18 17:00:00 110 mm[Hg] Univer sity of pressure [facility] Diastolic blood 2019-12-18 17:00:00 55 mm[Hg] Unive rsity of pressure [facility] Heart rate 2019-12-18 17:00:00 74 /min Universi ty [facility] Body temperature 2019-12-18 17:00:00 36.44 Tiffany [facility] Respiratory rate 2019-12-18 17:00:00 18 /min [facility] Oxygen saturation in 2019-12-18 17:00:00 100 /min University of Arterial blood by [facility] Pulse oximetry [place] Body weight 2019-12-18 05:30:00 55.974 kg Universi ty [facility] BMI 2019-12-18 05:30:00 21.86 [facility]m2 [facility] Body height 2019-12-17 05:15:00 160 cm [facility] Procedures Procedure Date / Time Performing Clinician Source Performed FREE T4 2020-09-23 09:16:00 [facility]OLIC PANEL 2020-09-23 09:16:00 Bakari Guerin [facility] (NA, K, CL, CO2, GLUCOSE, Medica l Branch BUN, CREATININE, CA) CBC WITH DIFF 2020-09-23 09:16:00 [facility] FREE T3 2020-09-23 09:16:00 [facility] BASIC METABOLIC PANEL 2020-09-21 09:01:00 Javy, Ca [facility] (NA, K, CL, CO2, GLUCOSE, Medica l Branch BUN, CREATININE, CA) CBC WITH DIFF 2020-09-21 09:01:00 Bakari Guerin [facility] PROCALCITONIN 2020-09-21 09:01:00 Lyndsey [facility] LACTIC ACID WHOLE BLOOD 2020-09-21 09:00:00 Lyndsey [facility] XR CHEST 1 VW 2020-09-21 05:42:[address] [facility] [place] [place] THYROID STIMULATING 2020-09-20 20:57:00 Javy [facility] HORMONE [facility] BASIC METABOLIC PANEL 2020-09-20 08:57:00 Agusto Shrestha [facility] (NA, K, CL, CO2, GLUCOSE, Medica l Branch BUN, CREATININE, CA) CBC WITH DIFF 2020-09-20 08:57:00 Agusto Shrestha [facility] AMMONIA, PLASMA 2020-09-19 14:46:00 Fady [facility] SEDIMENTATION RATE 2020-09-19 14:46:00 Agusto Shrestha [facility] COMP. METABOLIC PANEL 2020-09-19 09:17:00 Agusto Shrestha [facility] ([id number]) Medical Branch CBC WITH DIFF 2020-09-19 09:17:00 Agusto Shrestha [facility] ACUTE CARE ARTERIAL BLOOD 2020-09-18 15:48:00 [facility] GAS [facility] Branch COVID-19 (ID NOW RAPID 2020-09-18 14:50:00 Al Goldstein [facility] TESTING) Medical Branch LAB ONLY COVID 2020-09-18 14:50:00 Singer [facility] INTERPRETATION [facility] BLOOD CULTURE SCREEN 2020-09-18 13:48:00 Al Goldstein [facility] URINALYSIS 2020-09-18 13:44:00 Singer [facility] URINE CULTURE 2020-09-18 13:44:00 Singer [facility] XR CHEST 1 VW 2020-09-18 13:27:49 Singer [facility] CT HEAD WO CONTRAST 2020-09-18 13:19:32 Singer [facility] BLOOD CULTURE SCREEN 2020-09-18 13:06:00 Singer [facility] MAGNESIUM 2020-09-18 13:06:00 Fady [facility] COMP. METABOLIC PANEL 2020-09-18 13:06:00 [id number] Medical [place] CBC WITH DIFF 2020-09-18 13:06:00 Goldstein, [facility] LACTIC ACID WHOLE BLOOD 2020-09-18 13:05:00 [facility] 2020-09-18 05:01:00 Doctor Unassigned, [facility] DOCUMENTS [place] [facility] COVID-19 (ID NOW RAPID 2020-02-15 15:09:00 Ruthy Lagos [facility] TESTING) Medical Branch ASSIGNMENT OF BENEFITS 2020-02-15 14:20:30 [facility] [place] [facility] ASSIGNMENT OF BENEFITS 2020-01-21 14:38:42 [facility] [place] [facility] DIRECTIVE TO PHYSICIAN 2020-01-09 05:01:00 [facility], [facility] [place] [facility] BASIC METABOLIC PANEL 2019-12-18 19:57:00 Young Woodard [facility] (NA, K, CL, CO2, GLUCOSE, Medica l Branch BUN, CREATININE, CA) CBC WITHOUT DIFF 2019-12-18 19:57:00 Zac Arciniega [facility] EGD (ENDO) 2019-12-18 15:27:23 Xi Vasquez [facility] Krystal [facility] US ABDOMEN LIMITED 2019-12-18 12:38:44 Parish [facility] Medical [place] MAGNESIUM 2019-12-18 10:58:00 Luis [facility] BASIC METABOLIC PANEL 2019-12-18 10:58:00 Luis [facility] (NA, K, CL, CO2, GLUCOSE, Medica l Branch BUN, CREATININE, CA) DIFF CONSULT 2019-12-18 10:58:00 Yamilet [facility] CBC WITH DIFF 2019-12-18 10:58:00 Yamilet [facility] PROTHROMBIN TIME / INR 2019-12-18 10:58:00 Marjorie [facility] CBC WITHOUT DIFF 2019-12-18 03:29:[address] [facility] ECHO ROUTINE W/DOPPLER 2019-12-17 20:57:27 Zac Arciniega [facility] HAPTOGLOBIN, SERUM 2019-12-17 19:11:00 Yamilet [facility] IRON PANEL 2019-12-17 19:11:00 Demian, [facility] CBC WITHOUT DIFF 2019-12-17 19:11:00 Demian [facility] MAGNESIUM 2019-12-17 06:56:00 Luis [facility] FERRITIN SERUM 2019-12-17 06:56:00 Demian, [facility] VITAMIN B12, LEVEL 2019-12-17 06:56:00 Demian [facility] FOLATE 2019-12-17 06:56:00 Demian, [facility] BASIC METABOLIC PANEL 2019-12-17 06:56:00 David Smith [facility] (NA, K, CL, CO2, GLUCOSE, Medica l Branch BUN, CREATININE, CA) CBC WITHOUT DIFF 2019-12-17 06:56:[address] [facility] PROTHROMBIN TIME / INR 2019-12-17 06:56:00 David Smith [facility] RETICULOCYTES AUTOMATED 2019-12-17 06:56:00 Zac [facility] ABDOMEN PELVIS WO 2019-12-17 00:27:57 Marya Chavez [facility] COVID-19 (ID NOW RAPID 2019-12-16 23:59:00 Scott [facility] TESTING Medical [place] HB ABO GROUPING 2019-12-16 23:30:00 Scott [facility] URINALYSIS 2019-12-16 23:19:00 [facility]IP[facility] 2019-12-16 23:18:00 Scott [facility] HEPATIC FUNCTION PANEL 2019-12-16 23:18:00 [facility] ([id number]) (ALB,T.PRO,BILI Medical Branch T,BU/BC,ALT,AST,ALK PHOS) BASIC METABOLIC PANEL 2019-12-16 23:18:00 [facility] (NA, K, CL, CO2, GLUCOSE, Medica l Branch BUN, CREATININE, CA) CBC WITH DIFF 2019-12-16 23:18:00 Scott [facility] PROTHROMBIN TIME / INR 2019-12-16 23:18:00 Scott [facility] EKG-12 LEAD 2019-12-16 23:06:27 Scott [facility] EKG-12 LEAD 2019-12-16 23:00:49 Marcelo [facility] NOTICE OF PRIVACY 2019-12-16 22:42:34 Doctor Neri, [facility] PRACTICES [place] [facility] CONSENT/REFUSAL FOR 2019-12-16 22:42:13 Doctor Neri, [facility] DIAGNOSIS AND TREATMENT [place] [facility] [place] AGREEMENTS AUTHORIZATIONS 2019-12-16 05:01:00 Doctor Neri, [facility] AND IRREVOCABLE [place] [facility] ASSIGNMENTS (FORM 2001) Encounters Start End Encounter Admission Attending Care Care Encounter Source Date/Time Date/Time Type Type Clinicians Facility Department ID 2021-02-22 Emergency [facility] [id number] Univers 21:38:31 [facility] 2021-02-20 Outpatient Martinez ROOT [facility] DARIEL [id number] Univers 23:59:[address] [facility] 2021-02-20 Emergency [facility] [id number] Univers 14:02:12 [facility] 2021-01-31 Inpatient UR WILLIAN FUNES [facility] [id number] 18:08:35 Med 2021-01-12 2021-01-12 Outpatient R HÉCTOR [facility] [id number] Univers 10:00:00 10:00:00 BEATA [id number] ity [facility] 2021-01-12 2021-01-12 Outpatient Martinez ROOT [facility] [id number] Univers 10:00:00 10:00:00 BEATA ity [facility] 2020-09-25 2020-09-25 Transition Bradly Clayton 1.2.840.114 [id number] Univers 00:00:00 00:00:00 of Mindy Aleman [id number] [id number] [id number] [facility] 403 Branch 2020-09-18 2020-09-23 Hospital Al Goldstein [facility] 1.2.840.1 [id number] Univers 08:03:00 16:47:00 Encounter Agusto Shrestha [id number] ity [id number] [id number] [facility] 081 Branch 2020-07-07 2020-07-07 Outpatient Martinez [facility]OT [facility] [id number] Univers 09:30:00 09:30:00 BEATA [id number] ity [facility] 2020-07-07 2020-07-07 Outpatient Martinez [facility]OT [facility] [id number] Univers 09:30:00 09:30:00 BEATA ity [facility] 2020-07-02 2020-07-02 [facility] 1.2.840.114 [id number] Univers 00:00:00 00:00:00 Outreach Richardalexandria [place] [id number] i ty of Deep [facility] [id number] [place] [id number] [place] [address] Branch 2020-03-03 2020-03-03 Outpatient R [facility] [id number] Univers 13:15:00 13:15:00 ARPITA ity [facility] 2020-03-03 2020-03-03 Outpatient R HÉCTOR [facility] [id number] Univers 09:15:00 09:15:00 BEATA ity of [facility] 2020-02-18 2020-02-18 [facility] 1.2.840.114 [id number] Univers 06:31:00 10:13:00 Encounter Beata Baxter [id number] ity of [id number] Surgical [id number] Med ica[address] 2020-02-18 2020-02-18 [facility] 1.2.840.114 [id number] 06:31:00 10:13:00 Encounter Beata Baxter [id number] [facility] [id number] Surgical [id number] [place] [address] 2020-02-15 2020-02-15 Laboratory Only, [facility] Test [facility] 1.2.840. 114 [id number] Univers 09:19:27 09:34:27 Only David Plasencia [id number] ity of [place] 4[place]2.7.2.[place] [id number] [address] 2020-02-15 2020-02-15 Laboratory Only, [facility] 1.2.840.114 [id number] 09:19:27 09:34:27 Only Test [place] [id number] [place] 4.2.7.2.686 [place] [id number] [id number] 2020-02-15 2020-02-15 Outpatient R [facility] [id number] Univers 09:15:00 09:15:00 [id number] ity of [facility] 2020-02-15 2020-02-15 Outpatient R [facility] [id number] Univers 09:15:00 09:15:00 ity of [facility] 2020-02-15 2020-02-15 Orders Doctor ZARCO 1.2.840.114 [id number] Univers 00:00:00 00:00:00 Only Unassigned, ABEL [id number] ity of [place] [facility] [id number] Jan as [phone] [address] 2020-02-15 2020-02-15 Orders Doctor HAROLDO 1.2.840.114 [id number] 00:00:00 00:00:00 Only Unassigned, ABEL [id number] [place] [facility] [id number] [id number] [facility] 2020-02-04 2020-02-04 [address] [facility] [id number] Univers 15:00:00 15:00:[id number] [facility] 2020-02-04 2020-02-04 [address] [facility] [id number] Univers 15:00:00 15:00:[address] [facility] 2020-01-31 2020-01-31 Prep For [place], [facility] 1.2.840.114 [id number] Univers 00:00:00 00:00:00 Surgery Brianna A [place] [id number] ity of [place].7.2.[place] Profess[place] [phone] Mi dic[address] 2020-01-31 2020-01-31 Prep For [place], [facility] 1.2.840.114 [id number] 00:00:00 00:00:00 Surgery Brianna A [place] [id number] [place] 4.2.7.2.686 Professio [phone] [address] 2020-01-29 2020-01-29 Telephone [place], [facility] [id number] Univers 00:00:00 00:00:00 Brianna A [place] [id number] ity of [place].7.2.[place] [phone] Mi dical [address] 2020-01-29 2020-01-29 Telephone [facility] 1.2.264.790 [id number] 00:00:00 00:00:00 Brianna A [place] [id number] [place] [id number] Professio [id number] [address] 2020-01-25 2020-01-25 Outpatient [facility]RO [id number] Memoria 09:48:00 09:48:00 l [facility] 2020-01-21 2020-01-21 Outpatient Martinez [facility] [id number] Univers 10:00:00 10:00:00 BEATA [id number] ity of [facility] 2020-01-21 2020-01-21 Outpatient Martinez [facility]OT [facility] [id number] Univers 10:00:00 10:00:00 BEATA ity of [facility] 2020-01-21 2020-01-21 Orders Doctor HAROLDO 1.2.840.114 [id number] Univers 00:00:00 00:00:00 Only Unassigned, ABEL 350.1.13.10 ity of [place] [facility] 4.2.7.2.686 Jan as [id number] [address] 2020-01-21 2020-01-21 Orders Doctor HAROLDO 1.2.840.114 [id number] 00:00:00 00:00:00 Only Unassigned, ABEL 350.1.13.10 [place] [facility] 4.2.7.2.686 [id number] 2020-01-14 2020-01-14 Outpatient [facility] 7500 [facility] 10:11:00 10:11:00 tyrone Maldonado [facility] 2020-01-09 2020-01-09 Orders Doctor HAROLDO 1.2.840.114 [id number] Univers 00:00:00 00:00:00 Only Unassigned, ABEL 350.1.13.10 ity of [place] [facility] 4.2.7.2.686 Jan as [id number] [address] 2020-01-09 2020-01-09 Orders Doctor HAROLDO 1.2.840.114 [id number] 00:00:00 00:00:00 Only Unassigned, ABEL 350.1.13.10 [place] [facility] 4.2.7.2.686 [id number] [id number] 2019-12-19 2019-12-19 Transition Bradly Clayton 1.2.840.114 [id number] Univers 00:00:00 00:00:00 of Care Abigail Aleman 350.1.13.10 [place] [phone] [address] 2019-12-19 2019-12-19 Transition Bradly Clayton 1..840.114 [id number] 00:00:00 00:00:00 of Care Abigail Aleman [id number] [place] 4.2.7.2.686 [id number] 2019-12-16 2019-12-18 Emergency Chavez Marya Dayami 1.2.840 .114 [id number] [facility] 17:48:00 17:51:00 Lashell Gilmore 350.1.13.10 ity of [facility] 4.2.7.2.686 [place] Xi Vasquez [phone] [facility] 100 [place] 2019-12-16 2019-12-18 Emergency Chavez Marya Barrientosnie 1.2.840 .114 [id number] 17:48:00 17:51:00 Lashell Gilmore 350.1.13.10 [facility] 4.2.7.2.686 Xi Vasquez [phone] 648 3912-08-25 2019-12-18 Anesthesia Conchis, Monse [facility] 1.2.840.11 [id number] [facility] 10:31:00 11:07:00 ICAL 350.1.13.10 it y of [place] 4.2.7.2.686 Jan as BLDG [id number] [facility] 020 Branch 2019-12-18 2019-12-18 Anest[facility] 1.2.840.11 [id number] 10:31:00 11:07:00 ICAL 350.1.13.10 [place] 4.2.7.2.686 [place]LD[place] [id number] 020 2019-12-16 2019-12-16 Orders Doctor ZARCO 1.2.840.114 [id number] Univers 00:00:00 00:00:00 Only Unassigned, ABEL 350.1.13.10 ity of [place] [facility] 4.2.7.2.686 Jan as [phone] [facility] 009 Branch 2019-12-16 2019-12-16 Orders Doctor ZARCO 1.2.840.114 [id number] 00:00:00 00:00:00 Only Unassigned, ABEL 350.1.13.10 [place] [facility] 4.2.7.2.686 [id number] [id number] 2018-12-21 2018-12-21 Telephone Clover [facility] 1.2.840.114 [id number] [facility] 00:00:00 00:00:00 Omega Baxter [id number] ity of [place] [id number] [address] 2018-12-21 2018-12-21 Peter Galo [facility] 1.2.840.114 [id number] 00:00:00 00:00:00 Omega Baxter 350.1.13.10 [place] 4.2.7.2.686 Professio [id number] [address] 2018-12-11 2018-12-11 [facility] 1.2.840.114 [id number] Univers 00:00:00 00:00:00 Omega Baxter [id number] ity of [place].2.[place] [phone] [address] 2018-12-11 2018-12-11 Moisés Galo [facility] 1.2.840.114 [id number] 00:00:00 00:00:00 Omega Baxter 350.1.13.10 [place] 4.2.7.2.686 Professio [phone] [address] Results Test Description Test Time Test Comments Results Result Comments Source BLOOD CULTURE SCREEN 2020-09-23 15:01:52 Test Item Value Reference Range Interpretation Comme nts Blood Culture-Aerobic (test No organisms isolated No growth Previous preliminary code = 83850-3) verified res ult was Culture In Prog ress on 09/18/2020 at 13 02 CDTPrevious pre liminary verified result was No growth at 24 ho urs on 09/19/2020 at 10 01 CDTPrevious pre liminary verified result was No growth at 48 ho urs on 09/20/2020 at 10 01 CDTPrevious pre liminary verified result was No growth at 72 ho urs on 09/21/2020 at 10 01 CDT Blood Culture-Anaerobic No organisms isolated No growth Previous preliminary (test code = 92916-7) verifi ed result was Culture In Prog ress on 09/18/2020 at 13 02 CDTPrevious pre liminary verified result was No growth at 24 ho urs on 09/19/2020 at 10 01 CDTPrevious pre liminary verified result was No growth at 48 ho urs on 09/20/2020 at 10 01 CDTPrevious pre liminary verified result was No growth at 72 ho urs on 09/21/2020 at 10 01 CDT Lab Interpretation (test Normal code = 03277-1) [facility] CULTURE [id number] 14:01:55 Test Item Value Reference Range Interpretation Comments Blood Culture-Aerobic No organisms No growth Previo us (test code = 69857-8) isolated prelim inary verified result was Culture In Progress on 09/18/2020 at 12 01 CDTPrevious preliminary verified result was No growth a t 24 hours on 09/19/2020 at 09 01 CDTPrevious preliminary verified result was No growth a t 48 hours on 09/20/2020 at 09 CDTPrevious preliminary verified result was No growth a t 72 hours on 09/21/2020 at 09 01 CDT Blood No organisms No growth Previous Culture-Anaerobic isolated preliminar y (test code = 05167-8) verifi ed result was Culture In Progress on 09/18/2020 at 12 01 CDTPrevious preliminary verified result was No growth a t 24 hours on 09/19/2020 at 09 CDTPrevious preliminary verified result was No growth a t 48 hours on 09/20/2020 at 09 01 CDTPrevious preliminary verified result was No growth a t 72 hours on 09/21/2020 at 09 01 CDT Lab Interpretation Normal (test code = 47365-2) [facility] [id number] 12:38:48 Test Item Value Reference Range Interpretation Comments FREE T4 (test code = See_Comment [Autom ated message] [id number]) The system [employer] generated this result transmitted ref erence range: 0.78 - 2 .20 ng/dL:. The ref erence range was not u sed to interpret this result as normal/abnor mal. Lab Interpretation (test Normal code = 22477-6) [facility] [id number] 12:37:47 Test Item Value Reference Range Interpretation Comments FREE T3 (test code = 5752818665) 2.10 pg/mL 2.77-5.27 L Lab Interpretation (test code = Abnormal 89663-5) [facility] METABOLIC PANEL (NA, K, CL, CO2, GLUCOSE, BUN, CREATININE, CA)2020-09-23 12:21:27 Test Item Value Reference Range Interpretation Comments NA (test code = 140 mmol/L 135-145 5078103753) K (test code = 4.1 mmol/L 3.5-5.0 2222729862) CL (test code = 105 mmol/L 98-108 3846422439) CO2 TOTAL (test code = 28 mmol/L 23-31 8338943249) AGAP (test code = 2-16 6377618336) BUN (test code = 42 mg/dL 7-23 H 3733438548) GLUCOSE (test code = 86 mg/dL 70-110 9969138063) CREATININE (test code = 1.77 mg/dL 0.50-1.04 H 8428736371) CALCIUM (test code = 9.1 mg/dL 8.6-10.6 2244614445) eGFR (test code = mL/min/1.73m2 3774511677) ELAYNE (test code = ELAYNE) Association of Glomerular Filtration Rate (GFR) and Staging of Kidney Disease* + --+ --+ ------+| GFR (mL/min/1.73 m2) ?| With Kidney Damage ?| ?Without Kidney Damage+ --------+ --------+ +| ?>90 ?| ?Stage one ?| ? Normal ?+ ---+ ---+ -------+| ?60-89 ?| ?Stage two ?| ? Decreased GFR ? + --+ --+ ------+| ?30-59 ?| ?Stage three ?| ? Stage three ? + --+ --+ ------+| ?15-29 ?| ?Stage four ? | ? Stage four ?+ ---+ ---+ -------+| ?<15 (or dialysis) ? ?| ?Stage five ? | ? Stage five ?+ ---+ ---+ -------+ *Each stage assumes the associated GFR level has been in effect for at least three months. ?Stages 1 to 5, with or without kidney disease, indicate chronic kidney disease. Notes: Determination of stages one and two (with eGFR >59mL/min/1.73 m2) requires estimation of kidney damage for at least three months as defined by structural or functional abnormalities of the kidney, manifested by either:Pathological abnormalities or Markers of kidney damage (including abnormalities in the composition of the blood or urine or abnormalities in imaging tests). Lab Interpretation Abnormal (test code = 98663-1) [facility] WITH [id number] 10:33:02 Test Item Value Reference Range Interpretation Comments WBC (test code = See_Comment [Automated 6690-2) message] The sy stem which generated this result transmitted reference range : 4.30 - 11.10 10*3/?L. The reference range was not used to interpret this result as normal/abnormal . RBC (test code = See_Comment L [Automated 789-8) message] The sy stem which generated this result transmitted reference range : 3.93 - 5.25 10*6/?L. The reference range was not used to interpret this result as normal/abnormal . HGB (test code = 9.7 g/dL 11.6-15.0 L 718-7) HCT (test code = 31.0 % 35.7-45.2 L 4544-3) MCV (test code = 95.7 fL 80.6-95.5 H 787-2) MCH (test code = 29.9 pg 25.9-32.8 785-6) MCHC (test code = 31.3 g/dL 31.6-35.1 L 786-4) RDW-SD (test code = 69.0 fL 39.0-49.9 H 62051-3) RDW-CV (test code = 19.8 % 12.0-15.5 H 788-0) PLT (test code = See_Comment L [Automated 777-3) message] The sy stem which generated this result transmitted reference range : 166 - 358 10*3/ ?L. The reference r avelina was not used to interpret this result as normal/abnormal . MPV (test code = 11.1 fL 9.5-12.9 54843-8) NRBC/100 WBC (test See_Comment [Automat ed code = 6231278916) message] The system which generated this result transmitted reference range : 0.0 - 10.0 /100 WBCs. The refer ence range was not u sed to interpret th is result as normal/abnormal . NRBC x10^3 (test code <0.01 See_Comment [Auto mated = 3162685808) message] The s ystem which generated this result transmitted reference range : 10*3/?L. The reference range was not used to interpret this result as normal/abnormal . GRAN MAT (NEUT) % 67.4 % (test code = 770-8) IMM GRAN % (test code 0.40 % = 2812266107) LYMPH % (test code = 14.2 % 736-9) MONO % (test code = 12.5 % 5905-5) EOS % (test code = 4.0 % 713-8) BASO % (test code = 1.5 % 706-2) GRAN MAT x10^3(ANC) 3.17 10*3/uL 1.88-7.09 (test code = 0450753708) IMM GRAN x10^3 (test <0.03 0.00-0.06 code = 6183626102) LYMPH x10^3 (test code 0.67 10*3/uL 1.32-3.29 L = 731-0) MONO x10^3 (test code 0.59 10*3/uL 0.33-0.92 = 742-7) EOS x10^3 (test code = 0.19 10*3/uL 0.03-0.39 711-2) BASO x10^3 (test code 0.07 10*3/uL 0.01-0.07 = 704-7) Lab Interpretation Abnormal (test code = 25196-1) [facility] 15:53:13 Test Item Value Reference Range Interpretation Comments Procalcitonin (test 0.08 ng/mL <0.07 H code = 2722507928) ELAYNE (test code = ELAYNE) INTERPRETATION OF PROCALCITONIN RESULTS IN ADULTS >= 18 YEARS OF AGE Initiation and discontinuation of antibiotics on patients with suspected or confirmed Lower Respiratory Tract Infection in Adults >= 18 years of age. + +-------- --------+ + -----+|Procalcitonin |Interpretation ?|Antibiotic ? ? |Considerations ? |ng/mL ? | ?|recommendation | ? + +-------- --------+ + -----+| <0.1 ? | Bacterial ? ? ?| Strongly ? ? ?| ? | ?| infection very | discouraged ? | Overruling: ? | ?| unlikely ? ? ? | ? | ? Clinically unstable ? ? ? + +-------- --------+ + ? High risk for adverse ? ? | <0.25 ?| Bacterial ? ? ?| Discouraged ? | ? outcome ? | ?| infection ? ? ?| ? | ? SEE IMPORTANT NOTE ?| ?| unlikely ? ? ? | ? | ? + +-------- --------+ + -----+| >=0.25 ? ? ? | Bacterial ? ? ?| Encouraged ? ?| ? | ?| infection ? ? ?| ? | ? | ?| likely ? | ? | Consider treatment failure ?+ +------- ---------+ -+ if levels does not decrease | >0.5 ? | Bacterial ? ? ?| Strongly ? ? ?| appropriately ? | ?| infection very | encouraged ? ?| ? | ?| likely ? | ? | ? + +-------- --------+ + -----+ Discontinuation of antibiotics in high-acuity patients with suspected or confirmed sepsis in Adults >= 18 years of age. + +-------- --------+ + -----+|Procalcitonin |Interpretation ?|Antibiotic ? ? |Considerations ? |ng/mL ? | ?|recommendation | ? + +-------- --------+ + -----+| <0.25 ?| Bacterial ? ? ?| Strongly ? ? ?| ? | ?| infection very | discouraged ? | Overruling: ? | ?| unlikely ? ? ? | ? | ? Clinically unstable ? ? ? + +-------- --------+ + ? High risk for adverse ? ? | <0.5 or drop | Bacterial ? ? ?| Discouraged ? | ? outcome ? | >80% from ? ?| infection ? ? ?| ? | ? SEE IMPORTANT NOTE ?| highest PCT ?| unlikely ? ? ? | ? | ? | level ?| ?| ? | ? + +-------- --------+ + -----+| >=0.5 ?| Bacterial ? ? ?| Encouraged ? ?| ? | ?| infection ? ? ?| ? | ? | ?| likely ? | ? | Consider treatment failure ?+ +------- ---------+ -+ if levels does not decrease | >1.0 ? | Bacterial ? ? ?| Strongly ? ? ?| appropriately ? | ?| infection very | encouraged ? ?| ? | ?| likely ? | ? | ? + +-------- --------+ + -----+ Percentage of drop of Procalcitonin calculation for Discontinuation of antibiotics in high-acuity patients with suspected or confirmed sepsis in Adults >= 18 years of age. ? Procalcitonin highest{}-Procalcitonin current{}Delta Procalcitonin = x100% ? Procalcitonin current {} IMPORTANT NOTE: Procalcitonin may be elevated without bacterial infection by physiologic stress related to trauma, vega, chronic dialysis, metastatic cancer, surgery in the past seven days, malaria, some fungal infections, and some forms of vasculitis. The interpretation algorithm may not apply to patients with immunosuppression (equivalent of >10 mg of prednisone daily), HIV with CD4 cell count < 350 cells/mm3, active malignancy on systemic chemotherapy, solid organ transplant or hematopoietic stem cell transplantation, or hospital acquired pneumonia. Additionally, some clinical trials of procalcitonin have excluded patients with shock requiring vasopressor use, acute respiratory failure requiring mechanical ventilation, or those with known lung abscess/empyema. For further information please refer to:[email or web address] Lab Interpretation Abnormal (test code = 99505-6) [facility] (NA, K, CL, CO2, GLUCOSE, BUN, CREATININE, CA)2020-09-21 09:42:50 Test Item Value Reference Range Interpretation Comments NA (test code = 140 mmol/L 135-145 4385414085) K (test code = 4.1 mmol/L 3.5-5.0 1732934018) CL (test code = 110 mmol/L 98-108 H 5816162376) CO2 TOTAL (test code = 27 mmol/L 23-31 9524829399) AGAP (test code = 2-16 0417497878) BUN (test code = 41 mg/dL 7-23 H 6315782421) GLUCOSE (test code = 83 mg/dL 70-110 0566655408) CREATININE (test code = 1.96 mg/dL 0.50-1.04 H 0922549317) CALCIUM (test code = 8.7 mg/dL 8.6-10.6 4998388628) eGFR (test code = mL/min/1.73m2 1542318146) ELAYNE (test code = ELAYNE) Association of Glomerular Filtration Rate (GFR) and Staging of Kidney Disease* + --+ --+ ------+| GFR (mL/min/1.73 m2) ?| With Kidney Damage ?| ?Without Kidney Damage+ --------+ --------+ +| ?>90 ?| ?Stage one ?| ? Normal ?+ ---+ ---+ -------+| ?60-89 ?| ?Stage two ?| ? Decreased GFR ? + --+ --+ ------+| ?30-59 ?| ?Stage three ?| ? Stage three ? + --+ --+ ------+| ?15-29 ?| ?Stage four ? | ? Stage four ?+ ---+ ---+ -------+| ?<15 (or dialysis) ? ?| ?Stage five ? | ? Stage five ?+ ---+ ---+ -------+ *Each stage assumes the associated GFR level has been in effect for at least three months. ?Stages 1 to 5, with or without kidney disease, indicate chronic kidney disease. Notes: Determination of stages one and two (with eGFR >59mL/min/1.73 m2) requires estimation of kidney damage for at least three months as defined by structural or functional abnormalities of the kidney, manifested by either:Pathological abnormalities or Markers of kidney damage (including abnormalities in the composition of the blood or urine or abnormalities in imaging tests). Lab Interpretation Abnormal (test code = 25773-3) [facility] WITH [id number] 09:20:04 Test Item Value Reference Range Interpretation Comments WBC (test code = See_Comment [Automated 1990-2) message] The sy stem which generated this result transmitted reference range : 4.30 - 11.10 10*3/?L. The reference range was not used to interpret this result as normal/abnormal . RBC (test code = See_Comment L [Automated 789-8) message] The sy stem which generated this result transmitted reference range : 3.93 - 5.25 10*6/?L. The reference range was not used to interpret this result as normal/abnormal . HGB (test code = 9.6 g/dL 11.6-15.0 L 718-7) HCT (test code = 30.7 % 35.7-45.2 L 4544-3) MCV (test code = 96.2 fL 80.6-95.5 H 787-2) MCH (test code = 30.1 pg 25.9-32.8 785-6) MCHC (test code = 31.3 g/dL 31.6-35.1 L 786-4) RDW-SD (test code = 71.7 fL 39.0-49.9 H 21668-8) RDW-CV (test code = 20.5 % 12.0-15.5 H 788-0) PLT (test code = See_Comment L [Automated 777-3) message] The sy stem which generated this result transmitted reference range : 166 - 358 10*3/ ?L. The reference r avelina was not used to interpret this result as normal/abnormal . MPV (test code = 11.1 fL 9.5-12.9 34345-7) NRBC/100 WBC (test See_Comment [Automat ed code = 5501973815) message] The system which generated this result transmitted reference range : 0.0 - 10.0 /100 WBCs. The refer ence range was not u sed to interpret th is result as normal/abnormal . NRBC x10^3 (test code See_Comment [Auto mated = 1754825844) message] The s ystem which generated this result transmitted reference range : 10*3/?L. The reference range was not used to interpret this result as normal/abnormal . GRAN MAT (NEUT) % 61.8 % (test code = 770-8) IMM GRAN % (test code 0.20 % = 7986490669) LYMPH % (test code = 17.7 % 736-9) MONO % (test code = 14.6 % 5905-5) EOS % (test code = 3.8 % 713-8) BASO % (test code = 1.9 % 706-2) GRAN MAT x10^3(ANC) 2.97 10*3/uL 1.88-7.09 (test code = 3630272330) IMM GRAN x10^3 (test <0.03 0.00-0.06 code = 9306765116) LYMPH x10^3 (test code 0.85 10*3/uL 1.32-3.29 L = 731-0) MONO x10^3 (test code 0.70 10*3/uL 0.33-0.92 = 742-7) EOS x10^3 (test code = 0.18 10*3/uL 0.03-0.39 711-2) BASO x10^3 (test code 0.09 10*3/uL 0.01-0.07 H = 704-7) Lab Interpretation Abnormal (test code = 13697-9) [facility] Whole [id number] 09:10:49 Test Item Value Reference Range Interpretation Comments LACTIC ACID (test code = 1.55 mmol/L 0.50-2.20 6032799070) Lab Interpretation (test code = Normal 39602-6) [facility] 1 [id number] 06:01:26 Mild right and moderate left basilar airspace disease and suspect smallleft-sided pleural effusion concerning for mild multifocal pneumonia. Givenage of patient, recommend follow-up until resolution.RL: [id number]: [id number] END OF REPORT ORDERINGPHYSICIAN: LYNDSEY QUINTANA HISTORY: ?wheezing TECHNIQUE: ?Frontal view of the chest. COMPARISON: ?09/18/2020 FINDINGS: ? Mild to moderate left basilar airspace disease and suspected smallleft-sided pleural effusion. Mild patchy right basilar airspace disease. Noright-sided pleural effusion. No pneumothorax or mediastinal widening.Heart size at the upper limits of normal. Vascular calcifications. [facility] Results Inft User - 09/21/2020 1:02 AM CDT ORDERING PHYSICIAN: LYNDSEY WORTHINGTONHISTORY: wheezing TECHNIQUE: Frontal view of the chest.COMPARISON: 09/18/2020FINDINGS: Mild to moderate left basilar airspace disease and suspected smallleft-sided pleural effusion. Mild patchy right basilar airspace disease. Noright-sided pleural effusion. No pneumothorax or mediastinal widening.Heart size at the upper limits of normal. Vascular calcifi cations.IMPRESSIONMild right and moderate left basilar airspace disease and suspect smallleft-sided pleural effusion concerning for mild multifocal pneumonia. Givenage of patient, recommend follow-up until resolution.RL: [id number]: [id number] OF REPORT [facility]UL[facility] [id number] 21:55:24 Test Item Value Reference Range Interpretation Comments TSH (test code = See_Comment H Biotin has been 3081461913) reported to cau se a negative bias, interpret resul ts relative to pat ient's use of biotin. [Automated mess age] The system [employer] generated this result transmitted ref erence range: 0.45 - 4 .70 mIU/L. The refe rence range was not u sed to interpret this result as normal/abnor mal. Lab Interpretation (test Abnormal code = 27456-5) [facility] METABOLIC PANEL (NA, K, CL, CO2, GLUCOSE, BUN, CREATININE, CA)2020-09-20 10:43:51 Test Item Value Reference Range Interpretation Comments NA (test code = 145 mmol/L 135-145 7274233470) K (test code = 3.9 mmol/L 3.5-5.0 3634667047) CL (test code = 111 mmol/L 98-108 H 5518357825) CO2 TOTAL (test code = 25 mmol/L 23-31 5458098764) AGAP (test code = 2-16 6006150775) BUN (test code = 42 mg/dL 7-23 H 9217218627) GLUCOSE (test code = 93 mg/dL 70-110 8912755205) CREATININE (test code = 1.83 mg/dL 0.50-1.04 H 5466788897) CALCIUM (test code = 8.9 mg/dL 8.6-10.6 8204228694) eGFR (test code = mL/min/1.73m2 9823070321) ELAYNE (test code = ELAYNE) Association of Glomerular Filtration Rate (GFR) and Staging of Kidney Disease* + --+ --+ ------+| GFR (mL/min/1.73 m2) ?| With Kidney Damage ?| ?Without Kidney Damage+ --------+ --------+ +| ?>90 ?| ?Stage one ?| ? Normal ?+ ---+ ---+ -------+| ?60-89 ?| ?Stage two ?| ? Decreased GFR ? + --+ --+ ------+| ?30-59 ?| ?Stage three ?| ? Stage three ? + --+ --+ ------+| ?15-29 ?| ?Stage four ? | ? Stage four ?+ ---+ ---+ -------+| ?<15 (or dialysis) ? ?| ?Stage five ? | ? Stage five ?+ ---+ ---+ -------+ *Each stage assumes the associated GFR level has been in effect for at least three months. ?Stages 1 to 5, with or without kidney disease, indicate chronic kidney disease. Notes: Determination of stages one and two (with eGFR >59mL/min/1.73 m2) requires estimation of kidney damage for at least three months as defined by structural or functional abnormalities of the kidney, manifested by either:Pathological abnormalities or Markers of kidney damage (including abnormalities in the composition of the blood or urine or abnormalities in imaging tests). Lab Interpretation Abnormal (test code = 11785-6) [facility] WITH [id number] 10:41:29 Test Item Value Reference Range Interpretation Comments WBC (test code = See_Comment [Automated 6690-2) message] The sy stem which generated this result transmitted reference range : 4.30 - 11.10 10*3/?L. The reference range was not used to interpret this result as normal/abnormal . RBC (test code = See_Comment L [Automated 789-8) message] The sy stem which generated this result transmitted reference range : 3.93 - 5.25 10*6/?L. The reference range was not used to interpret this result as normal/abnormal . HGB (test code = 10.2 g/dL 11.6-15.0 L 718-7) HCT (test code = 32.6 % 35.7-45.2 L 4544-3) MCV (test code = 96.7 fL 80.6-95.5 H 787-2) MCH (test code = 30.3 pg 25.9-32.8 785-6) MCHC (test code = 31.3 g/dL 31.6-35.1 L 786-4) RDW-SD (test code = 72.8 fL 39.0-49.9 H 60452-9) RDW-CV (test code = 20.8 % 12.0-15.5 H 788-0) PLT (test code = See_Comment L [Automated 777-3) message] The sy stem which generated this result transmitted reference range : 166 - 358 10*3/ ?L. The reference r avelina was not used to interpret this result as normal/abnormal . MPV (test code = 12.0 fL 9.5-12.9 90223-7) NRBC/100 WBC (test See_Comment [Automat ed code = 0925287421) message] The system which generated this result transmitted reference range : 0.0 - 10.0 /100 WBCs. The refer ence range was not u sed to interpret th is result as normal/abnormal . NRBC x10^3 (test code See_Comment [Auto mated = 7949072946) message] The s ystem which generated this result transmitted reference range : 10*3/?L. The reference range was not used to interpret this result as normal/abnormal . GRAN MAT (NEUT) % 65.6 % (test code = 770-8) IMM GRAN % (test code 0.20 % = 7366721602) LYMPH % (test code = 15.7 % 736-9) MONO % (test code = 13.3 % 5905-5) EOS % (test code = 3.3 % 713-8) BASO % (test code = 1.9 % 706-2) GRAN MAT x10^3(ANC) 3.54 10*3/uL 1.88-7.09 (test code = 9124359763) IMM GRAN x10^3 (test <0.03 0.00-0.06 code = 9990523910) LYMPH x10^3 (test code 0.85 10*3/uL 1.32-3.29 L = 731-0) MONO x10^3 (test code 0.72 10*3/uL 0.33-0.92 = 742-7) EOS x10^3 (test code = 0.18 10*3/uL 0.03-0.39 711-2) BASO x10^3 (test code 0.10 10*3/uL 0.01-0.07 H = 704-7) Lab Interpretation Abnormal (test code = 34965-7) [facility] [id number] 16:06:07 Test Item Value Reference Range Interpretation Comments URINE CULTURE (test No aerobic growth (< code = 630-4) 1000 CFU/mL) [facility]viewSEDIMENTATION [id number] 15:35:08 Test Item Value Reference Range Interpretation Comments ESR (test code = See_Comment [Automated message] 3095827447) The system [employer] h generated this result transmitted ref erence range: 0 - 20 m m/HR. The reference r avelina was not used to interpret this result as normal/abnor mal. Lab Interpretation (test Normal code = 33995-8) [facility], [id number] 15:07:59 Test Item Value Reference Range Interpretation Comments AMMONIA (test code = 6247271162) 28 umol/L 9-33 Lab Interpretation (test code = Normal 19395-9) [facility]. METABOLIC PANEL (38627)2020-09-19 11:12:02 Test Item Value Reference Range Interpretation Comments NA (test code = 145 mmol/L 135-145 7304526624) K (test code = 4.4 mmol/L 3.5-5.0 6096677502) CL (test code = 113 mmol/L 98-108 H 5600421352) CO2 TOTAL (test code = 24 mmol/L 23-31 1273765050) AGAP (test code = 2-16 7797529414) BUN (test code = 47 mg/dL 7-23 H 8503292241) GLUCOSE (test code = 80 mg/dL 70-110 7123448108) CREATININE (test code = 1.87 mg/dL 0.50-1.04 H 2564170947) TOTAL BILI (test code = 1.8 mg/dL 0.1-1.1 H 5341345902) CALCIUM (test code = 9.0 mg/dL 8.6-10.6 1616416191) T PROTEIN (test code = 6.0 g/dL 6.3-8.2 L 1696888146) ALBUMIN (test code = 3.3 g/dL 3.5-5.0 L 5130597366) ALK PHOS (test code = 133 U/L 34-122 H 3500915195) ALTv (test code = 26 U/L 5-35 1742-6) AST(SGOT) (test code = 49 U/L 13-40 H 9622392042) eGFR (test code = mL/min/1.73m2 6091237493) ELAYNE (test code = ELAYNE) Association of Glomerular Filtration Rate (GFR) and Staging of Kidney Disease* + --+ --+ ------+| GFR (mL/min/1.73 m2) ?| With Kidney Damage ?| ?Without Kidney Damage+ --------+ --------+ +| ?>90 ?| ?Stage one ?| ? Normal ?+ ---+ ---+ -------+| ?60-89 ?| ?Stage two ?| ? Decreased GFR ? + --+ --+ ------+| ?30-59 ?| ?Stage three ?| ? Stage three ? + --+ --+ ------+| ?15-29 ?| ?Stage four ? | ? Stage four ?+ ---+ ---+ -------+| ?<15 (or dialysis) ? ?| ?Stage five ? | ? Stage five ?+ ---+ ---+ -------+ *Each stage assumes the associated GFR level has been in effect for at least three months. ?Stages 1 to 5, with or without kidney disease, indicate chronic kidney disease. Notes: Determination of stages one and two (with eGFR >59mL/min/1.73 m2) requires estimation of kidney damage for at least three months as defined by structural or functional abnormalities of the kidney, manifested by either:Pathological abnormalities or Markers of kidney damage (including abnormalities in the composition of the blood or urine or abnormalities in imaging tests). Lab Interpretation Abnormal (test code = 63272-9) [facility] WITH [id number] 09:52:12 Test Item Value Reference Range Interpretation Comments WBC (test code = See_Comment [Automated 7132-2) message] The sy stem which generated this result transmitted reference range : 4.30 - 11.10 10*3/?L. The reference range was not used to interpret this result as normal/abnormal . RBC (test code = See_Comment L [Automated 119-8) message] The sy stem which generated this result transmitted reference range : 3.93 - 5.25 10*6/?L. The reference range was not used to interpret this result as normal/abnormal . HGB (test code = 10.0 g/dL 11.6-15.0 L 718-7) HCT (test code = 31.4 % 35.7-45.2 L 4544-3) MCV (test code = 95.2 fL 80.6-95.5 787-2) MCH (test code = 30.3 pg 25.9-32.8 785-6) MCHC (test code = 31.8 g/dL 31.6-35.1 786-4) RDW-SD (test code = 72.7 fL 39.0-49.9 H 29548-2) RDW-CV (test code = 21.0 % 12.0-15.5 H 788-0) PLT (test code = See_Comment L [Automated 777-3) message] The sy stem which generated this result transmitted reference range : 166 - 358 10*3/ ?L. The reference r avelina was not used to interpret this result as normal/abnormal . MPV (test code = 11.8 fL 9.5-12.9 04713-8) NRBC/100 WBC (test See_Comment [Automat ed code = 8164855420) message] The system which generated this result transmitted reference range : 0.0 - 10.0 /100 WBCs. The refer ence range was not u sed to interpret th is result as normal/abnormal . NRBC x10^3 (test code See_Comment [Auto mated = 2418364142) message] The s ystem which generated this result transmitted reference range : 10*3/?L. The reference range was not used to interpret this result as normal/abnormal . GRAN MAT (NEUT) % 73.0 % (test code = 770-8) IMM GRAN % (test code 0.30 % = 6771761103) LYMPH % (test code = 11.8 % 736-9) MONO % (test code = 13.1 % 5905-5) EOS % (test code = 0.9 % 713-8) BASO % (test code = 0.9 % 706-2) GRAN MAT x10^3(ANC) 4.83 10*3/uL 1.88-7.09 (test code = 4858191198) IMM GRAN x10^3 (test <0.03 0.00-0.06 code = 7742744518) LYMPH x10^3 (test code 0.78 10*3/uL 1.32-3.29 L = 731-0) MONO x10^3 (test code 0.87 10*3/uL 0.33-0.92 = 742-7) EOS x10^3 (test code = 0.06 10*3/uL 0.03-0.39 711-2) BASO x10^3 (test code 0.06 10*3/uL 0.01-0.07 = 704-7) Lab Interpretation Abnormal (test code = 55662-7) [facility] COVID [id number] 06:21:49COVID DMT InterpretationInterpretation/Recommendations: Molecular NAAT Tests for Active Infection with the SARS-CoV-2 Virus: The patient has currently tested negative for the SARS-CoV-2 virus that causes COVID-19 illness. This most likely indicates that the patient does not have an active infection with the SARS-CoV-2 virus. However, infection is not completely ruled out as the false negative rate for molecular NAAT testing using a nasopharyngeal sample can be up to 30%, mostly dependent on the timing of sample collection in relation to illness onset and any deficiencies in sampling techniques. If the patient has symptoms concerning for COVID-19 illness, a repeat NAAT test (PCR, Rapid ID Now, etc.) should be performed, at which time the SARS-CoV-2 virus - if present - may have reached a detectable viral load (usually peaking by the end of the first week of symptoms). Tests for IgM and/or IgGAntibodies to the SARS-CoV-2 Virus: If the patient develops COVID-19 illness in the future, testingfor IgM and IgG antibodies approximately 3 weeks after illness onset will likely indicate if the patient has produced antibodies to the SARS-CoV-2 virus. However, some patients may take longer to develop detectable antibodies, while some patients who were infected with SARS-CoV-2 may never develop antibodies. While antibodies to SARS-CoV-2 may provide some degree of immunity, at this time the strength and duration of the antibody response is unknown. Interpretation Result Comments:These interpretation comments are based upon all COVID-19 testing the patient has had at [facility], including molecular NAAT testing (more commonly known as PCR testing and Rapid ID Now testing) and antibody testing. It does not take into account any testing that a patient has had outside of the [facility] medical record. [facility] LABORATORY SERVICESCOVID Resul [id number] Rapid ID NOW (no units) ? ? Date ? Value ? 09/18/2020 ? Not Detected ? ? ? 02/15/2020 ? Not Detected ? ? ? 12/16/2019 ? Not Detected ? [facility] SERVICESUnMethod[facility] HospitalMAGNESIUM2021-05-27 21:23:35 Test Item Value Reference Range Interpretation Comments MAGNESIUM (test code = 5137917823) 2.7 mg/dL 1.7-2.4 H Lab Interpretation (test code = Abnormal 55117-8) [facility] Arterial Blood Gas.2020-09-18 15:52:18 Test Item Value Reference Range Interpretation Comments PH (test code = 2) 7.35-7.45 PCO2 (test code = See_Comment L [Automat ed message] [id number]) The system [employer] generated this result transmitted ref erence range: 35 - 45 mmHg. The reference r avelina was not used to interpret this result as normal/abnor mal. PO2 (test code = See_Comment [Automated message] 4424842023) The system [employer] generated this result transmitted ref erence range: 80 - 100 mmHg. The reference r avelina was not used to interpret this result as normal/abnor mal. HCO3 (test code = See_Comment [Automate d message] 4887908282) The system [employer] generated this result transmitted ref erence range: 22 - 26 mEq/L. The reference r avelina was not used to interpret this result as normal/abnor mal. BE (test code = See_Comment [Automated message] 8541185664) The system [employer] generated this result transmitted ref erence range: -3.0 - 3 .0 mEq/L. The refe rence range was not u sed to interpret this result as normal/abnor mal. Lab Interpretation (test Abnormal code = 10866-9) [facility] RAPID [facility]ING[facility]2020-09-18 15:12:45 Test Item Value Reference Range Interpretation Comments SARS-CoV-2 Rapid ID NOW Not Detected Not Detected (test code = 02060-0) ELAYNE (test code = ELAYNE) ID NOW COVID-19 Assay is an isothermal nucleic acid amplification test intended for the qualitative detection of nucleic acid from SARS-CoV-2 viral RNA in nasopharyngeal ([employer] CONTROL ENGINEER) specimens. It is used under Emergency Use Authorization (EUA) by FDA. The limit of detection (LOD) of the assay is 125 Genome Equivalents/mL. A positive result is indicative of the presence of SARS-CoV-2 RNA. ?Clinical correlation with patient history and other diagnostic information is necessary to determine patient infection status. A negative (Not Detected) result does not preclude SARS-CoV-2 infection. In patients with clinical symptoms and other tests that are consistent with SARS-CoV-2 infection, negative results should be treated as presumptive negative and a new specimen should be tested with alternative PCR molecular test. Invalid: Please collect a new specimen for repeat patient testing if clinically indicated. Lab Interpretation Normal (test code = 05412-7) [facility]21[facility] 14:26:31 Test Item Value Reference Range Interpretation Comments APPEARANCE (test code = Clear Clear 6744671161) COLOR (test code = Yellow Yellow 4908607499) PH (test code = 4.8-8.0 8373618587) SP GRAVITY (test code = 1.003-1.030 5269363516) GLU U QUAL (test code = Normal Normal 2440750038) BLOOD (test code = Negative Negative 8354992232) KETONES (test code = Negative Negative 3301556860) PROTEIN (test code = Negative Negative 2887-8) UROBILIN (test code = Normal Normal 4736391125) BILIRUBIN (test code = Negative Negative 5300992170) NITRITE (test code = Negative Negative 8858211280) LEUK LUZMARIA (test code = Negative Negative 8729501336) RBC/HPF (test code = See_Comment [Autom ated message] 5965772168) The system [employer] generated this result transmitted ref erence range: 0 - 3 HP F. The reference range was not used to int erpret this result as normal/abnormal . WBC/HPF (test code = <1 See_Comment [Autom ated message] 4302124751) The system [employer] generated this result transmitted ref erence range: 0 - 5 HP F. The reference range was not used to int erpret this result as normal/abnormal . BACTERIA (test code = Negative Negative 2162287697) MUCOUS (test code = Slight Negative LPF A 8540284206) Lab Interpretation (test Abnormal code = 06046-4) [facility]. METABOLIC PANEL (68349)2020-09-18 14:01:16 Test Item Value Reference Range Interpretation Comments NA (test code = 144 mmol/L 135-145 8528038936) K (test code = 4.2 mmol/L 3.5-5.0 5419308714) CL (test code = 108 mmol/L 98-108 6317567232) CO2 TOTAL (test code = 26 mmol/L 23-31 0423979231) AGAP (test code = 2-16 6881478343) BUN (test code = 50 mg/dL 7-23 H 6819825258) GLUCOSE (test code = 92 mg/dL 70-110 3317861844) CREATININE (test code = 1.85 mg/dL 0.50-1.04 H 9752155302) TOTAL BILI (test code = 1.7 mg/dL 0.1-1.1 H 1503232855) CALCIUM (test code = 9.7 mg/dL 8.6-10.6 7940218376) T PROTEIN (test code = 6.3 g/dL 6.3-8.2 3186950448) ALBUMIN (test code = 3.6 g/dL 3.5-5.0 4178219863) ALK PHOS (test code = 162 U/L 34-122 H 5646511756) ALTv (test code = 29 U/L 5-35 1742-6) AST(SGOT) (test code = 47 U/L 13-40 H 5761898432) eGFR (test code = mL/min/1.73m2 3766215018) ELAYNE (test code = ELAYNE) Association of Glomerular Filtration Rate (GFR) and Staging of Kidney Disease* + --+ --+ ------+| GFR (mL/min/1.73 m2) ?| With Kidney Damage ?| ?Without Kidney Damage+ --------+ --------+ +| ?>90 ?| ?Stage one ?| ? Normal ?+ ---+ ---+ -------+| ?60-89 ?| ?Stage two ?| ? Decreased GFR ? + --+ --+ ------+| ?30-59 ?| ?Stage three ?| ? Stage three ? + --+ --+ ------+| ?15-29 ?| ?Stage four ? | ? Stage four ?+ ---+ ---+ -------+| ?<15 (or dialysis) ? ?| ?Stage five ? | ? Stage five ?+ ---+ ---+ -------+ *Each stage assumes the associated GFR level has been in effect for at least three months. ?Stages 1 to 5, with or without kidney disease, indicate chronic kidney disease. Notes: Determination of stages one and two (with eGFR >59mL/min/1.73 m2) requires estimation of kidney damage for at least three months as defined by structural or functional abnormalities of the kidney, manifested by either:Pathological abnormalities or Markers of kidney damage (including abnormalities in the composition of the blood or urine or abnormalities in imaging tests). Lab Interpretation Abnormal (test code = 90289-9) [facility] WO [id number] 13:42:42 No acute intracranial abnormality. Preliminary Report Dictated by Resident: Tevin Plummer I, Conner Ordaz MD., have reviewed this study and agree with the abovereport.EXAM: CT HEAD WO CONTRAST HISTORY:89 years-old; Female; Mental status change, unknown cause No otherhistory has been provided at thetime of dictation. TECHNIQUE: Axial CT of the head was performed and reconstructed at 5 mmintervals. Coronal and sagittal reformatted images were generated. COMPARISON: MR brain dated 11/09/2018 FINDINGS: The ventricles and cerebral sulci are normal in caliber and configurationfor age. No hydrocephalus, midline shift or pathological extra-axial fluidcollection is present. The basal cisterns are unremarkable. No acute intracranial hemorrhage or significant mass effect is visualized.Left pterional craniotomy changes and left temporal lobe encephalomalaciaare redemonstrated. 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 Periventricular and subcorticalwhite matterhypodensities are nonspecific but likely represent sequelae ofmicrovascular ischemic disease. The merino-white matter differentiation isotherwise preserved. The mastoid air cells and paranasal air sinuses are clear. An extra-axialossification is noted of the inner table of the right parietal calvariummay represent osteoma. The calvarium and central skull base are otherwiseunremarkable. Pseudophakia and bilateral senescent calcifications arenoted. [facility], Radiant Results Inft User - 09/18/2020 8:43 AM CDT EXAM: CT HEAD WO CONTRASTH ISTORY:89 years-old; Female; Mental status change, unknown cause No otherhistory has been provided at the time of dictation. TECHNIQUE: Axial CT of the head was performed and reconstructed at 5 mmintervals. Coronal and sagittal reformatted images were generated.COMPARISON: MR brain dated 11/09/2018FINDINGS:The ventricles and cerebral sulci are normal in caliber and configurationfor age. No hydrocephalus, midline shift or pathological extra-axial fluidcollection is present. 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 Periventricular and subcortical white matterhypodensities are nonspecific but likely represent sequelae ofmicrovascular ischemic disease. The merino-white matter differentiation isotherwise preserved. The mastoid air cells and paranasalair sinuses are clear. An extra-axialossification is noted of the inner table of the right parietal calvariummay represent osteoma. The calvarium and central skull base are otherwiseunremarkable. Pseudophakia and bilateral senescent calcifications arenoted.IMPRESSIONNo acute intracranial abnormality. P reliminary Report Dictated by Resident: Conner Frost MD., have reviewed this study and agree with the abovereport.[facility] CHEST 1 [id number] 13:29:35HISTORY: Sepsis. TECHNIQUE: Portable AP erect view of the chest is obtained. No prior cheststudy available for comparison. FINDINGS: The radiograph is underpenetrated which is obscuring some of thedetails of the retrocardiac portion of the lung. Dense mitral annularcalcification suspected. Mild cardiomegaly noted with minimal congestion in the lungs without focalarea of consolidation. 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 CONCLUSIONS: No definite signs of acute cardiopulmonary disease. However,if possible, please obtain PA and lateral views for better evaluation ofthe cardiac region of left lower lung.[facility], Radiant Results Inft User - 09/18/2020 8:30 AM CDT HISTORY: Sepsis.TECHNIQUE: Portable AP erect view of the chest is obtained. No prior cheststudy available for comparison.FINDINGS: The radiograph is underpenetrated which is obscuring some of thedetails of the retrocardiac portion of the lung. Dense mitral annularcalcification suspected.Mild cardiomegaly noted with minimal congestion in the lungs without focalarea of consolidation. 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 However,if possible, please obtain PA and lateral views for better evaluation ofthe cardiac region of left lower lung. [facility] WITH [id number] 13:22:54 Test Item Value Reference Range Interpretation Comments WBC (test code = See_Comment [Automated 2490-2) message] The sy stem which generated this result transmitted reference range : 4.30 - 11.10 10*3/?L. The reference range was not used to interpret this result as normal/abnormal . RBC (test code = See_Comment L [Automated 439-8) message] The sy stem which generated this result transmitted reference range : 3.93 - 5.25 10*6/?L. The reference range was not used to interpret this result as normal/abnormal . HGB (test code = 10.4 g/dL 11.6-15.0 L 718-7) HCT (test code = 32.6 % 35.7-45.2 L 4544-3) MCV (test code = 94.8 fL 80.6-95.5 787-2) MCH (test code = 30.2 pg 25.9-32.8 785-6) MCHC (test code = 31.9 g/dL 31.6-35.1 786-4) RDW-SD (test code = 70.1 fL 39.0-49.9 H 70221-6) RDW-CV (test code = 20.5 % 12.0-15.5 H 788-0) PLT (test code = See_Comment L [Automated 777-3) message] The sy stem which generated this result transmitted reference range : 166 - 358 10*3/ ?L. The reference r avelina was not used to interpret this result as normal/abnormal . MPV (test code = 10.4 fL 9.5-12.9 17063-3) NRBC/100 WBC (test See_Comment [Automat ed code = 4631119282) message] The system which generated this result transmitted reference range : 0.0 - 10.0 /100 WBCs. The refer ence range was not u sed to interpret th is result as normal/abnormal . NRBC x10^3 (test code <0.01 See_Comment [Auto mated = 1314342177) message] The s ystem which generated this result transmitted reference range : 10*3/?L. The reference range was not used to interpret this result as normal/abnormal . GRAN MAT (NEUT) % 71.8 % (test code = 770-8) IMM GRAN % (test code 0.40 % = 6860017562) LYMPH % (test code = 13.5 % 736-9) MONO % (test code = 11.7 % 5905-5) EOS % (test code = 1.3 % 713-8) BASO % (test code = 1.3 % 706-2) GRAN MAT x10^3(ANC) 3.87 10*3/uL 1.88-7.09 (test code = 4989195807) IMM GRAN x10^3 (test <0.03 0.00-0.06 code = 0306908173) LYMPH x10^3 (test code 0.73 10*3/uL 1.32-3.29 L = 731-0) MONO x10^3 (test code 0.63 10*3/uL 0.33-0.92 = 742-7) EOS x10^3 (test code = 0.07 10*3/uL 0.03-0.39 711-2) BASO x10^3 (test code 0.07 10*3/uL 0.01-0.07 = 704-7) Lab Interpretation Abnormal (test code = 79723-3) [facility]viewLactic Acid Whole [id number] 13:13:41 Test Item Value Reference Range Interpretation Comments LACTIC ACID (test code = 1.66 mmol/L 0.50-2.20 7688870307) Lab Interpretation (test code = Normal 95939-8) [facility]ARS-COV2/RT-PCR ([facility] & REF LABS) 2020-09-05 12:27:00 Test Item Value Reference Range Interpretation Comments SARS-COV2/RT-PCR Negative Not Detected, Performanc e of the Xpert (test code = Negative, See Xpress 3215239) external report SARS-CoV-2/F wiley/RSV test for linked test has only bee n established in nasopharyngeal swab specimens. Use of the Xpert Xpress SARS-CoV-2/Flu/ RSV test with other spec imen types has not b een assessed and pe rformance characteristics are unknown. As wi th any molecular test, mutations withi n the targeted geneti c regions identified by t he Xpert Xpress SARS-CoV-2/Flu/ RSV test could affect pr lina and/or probe bi nding resulting in fa ilure to detect the pres ence of virus or the vi clifford being detected less predictably.Neg ative results do not preclude SARS-CoV-2, Inf luenza A/B, or RSV inf ection and should not be used as the sole bas is for treatment or ot her patient managem ent decisions. Res ults from the Xpert Xpres s SARS-CoV-2/Flu/ RSV test should be corre lated with the clinic al history, epidem iological data, and other data available to e clinician evalu ating the patient. Inval id test results may occ ur from improper specim en collection; hafsa lure to follow the aniya mmended sample collecti on, handling, and s torage procedures; kemar hnical error. False ne gative results may occ ur if virus is presen t at levels below e analytical limi t of detection (LOD: 131 copies/mL). Vi ral nucleic acid ma y persist in vivo, indepe ndent of virus viability . Detection of an alyte target(s) does not imply that the corres ponding virus(es) are i nfectious or are the caus ative agents for clin ical symptoms. Rece nt patient exposur e to Flu[employer]ist or oth er live attenuated infl uenza vaccines may ca use inaccurate posi tive results.This te st has been authorized by FDA under an EUA fo r use by authorized labo ratyadira. This test is o nly authorized for the duration of the declaration yelena t circumstances e xist justifying the authorization o f emergency use o f in vitro diagnosti c tests for detection a nd/or diagnosis of CO VID-19 under Section 5 64(b)(1) of the Federal Food, Drug and Cosmet ic Act, 21 U.S.C. 360bbb-3(b)(1), unless the authorizati on is terminated or r evoked sooner.Fact She et for Healthcare Prov iders: https://www.[employer]/ Documents/Xpert %20Xpress %22GSKQ-YkG-9-F wiley-RSV/30 2-4508%20Rev.%2 0B%20HCP% 20Fact%20Sheet. pdfFact Sheet for Healt hcare Patients: https://www.[employer]/ Documents/Xpert %20Xpress %28AVLC-XkB-2-F wiley-RSV/30 2-4507%20Rev.%2 0B%20Pati ent%20Fact%20Sh eet.pdf SARS-COV-2 SLSL Performed at:[facility] PERFORMING LAB [id number] (test code = [facility] 8352499) [place] [address] ph: [phone] [id number] 06:13:00 Test Item Value Reference Range Interpretation Comments THYROID STIMULATING HORMONE 23.630 uIU/mL 0.350-5.500 H (BEAKER) (test code = 772) Purchasing Manager/Sales ID - [id number], [id number] 06:12:00 Test Item Value Reference Range Interpretation Comments FREE T4 (BEAKER) (test code = 655) 0.63 ng/dL 0.90-1.80 L Purchasing Manager/Sales ID - [id number] METABOLIC [id number] 06:06:00 Test Item Value Reference Range Interpretation Comments SODIUM (BEAKER) (test 143 meq/L 135-148 code = 381) POTASSIUM (BEAKER) 4.0 meq/L 3.6-5.5 (test code = 379) CHLORIDE (BEAKER) 106 meq/L 98-106 (test code = 382) CO2 (BEAKER) (test 27 meq/L 20-29 code = 355) BLOOD UREA NITROGEN 27 mg/dL 10-26 H (BEAKER) (test code = 354) CREATININE (BEAKER) 1.41 mg/dL 0.50-1.20 H (test code = 358) GLUCOSE RANDOM 96 mg/dL 70-110 (BEAKER) (test code = 652) CALCIUM (BEAKER) 8.6 mg/dL 8.5-10.5 (test code = 697) EGFR (BEAKER) (test INSUFFIC IENT CLINICAL code = 1092) DATA TO CALCULA TE ESTIMATED GFR. Purchasing Manager/Sales ID - [id number] ID - [id number] ID - [id number] ID - [id number] ID - [id number] ID - [id number] ID - [id number] ID - [id number] ID - [id number] ID - [id number] 05:59:00 Test Item Value Reference Range Interpretation Comments MAGNESIUM (BEAKER) (test code = 2.2 mg/dL 1.5-3.0 627) Purchasing Manager/Sales ID - [id number] ID - [id number] ID - [id number] ID - [id number] CBC W/PLT COUNT & AUTO [id number] 05:41:00 Test Item Value Reference Range Interpretation Comments WHITE BLOOD CELL COUNT (BEAKER) 5.5 K/ L 4.0-10.0 (test code = 775) RED BLOOD CELL COUNT (BEAKER) 3.50 M/ L 4.00-5.00 L (test code = 761) HEMOGLOBIN (BEAKER) (test code = 10.3 GM/DL 12.0-15.5 L 410) HEMATOCRIT (BEAKER) (test code = 33.3 % 36.0-46.0 L 411) MEAN CORPUSCULAR VOLUME (BEAKER) 95.1 fL 82.0-99.0 (test code = 753) MEAN CORPUSCULAR HEMOGLOBIN 29.4 pg 27.0-33.0 (BEAKER) (test code = 751) MEAN CORPUSCULAR HEMOGLOBIN CONC 30.9 GM/DL 32.0-36.0 L (BEAKER) (test code = 752) RED CELL DISTRIBUTION WIDTH 19.2 % 12.0-15.0 H (BEAKER) (test code = 412) PLATELET COUNT (BEAKER) (test 129 K/CU MM 150-430 L code = 756) MEAN PLATELET VOLUME (BEAKER) 10.4 fL 6.0-11.5 (test code = 754) NUCLEATED RED BLOOD CELLS 0 /100 WBC 0-0 (BEAKER) (test code = 413) NEUTROPHILS RELATIVE PERCENT 73 % (BEAKER) (test code = 429) LYMPHOCYTES RELATIVE PERCENT 12 % (BEAKER) (test code = 430) MONOCYTES RELATIVE PERCENT 12 % (BEAKER) (test code = 431) EOSINOPHILS RELATIVE PERCENT 2 % (BEAKER) (test code = 432) BASOPHILS RELATIVE PERCENT 1 % (BEAKER) (test code = 437) NEUTROPHILS ABSOLUTE COUNT 3.96 K/ L 1.80-8.00 (BEAKER) (test code = 670) LYMPHOCYTES ABSOLUTE COUNT 0.67 K/ L 1.48-4.50 L (BEAKER) (test code = 414) MONOCYTES ABSOLUTE COUNT (BEAKER) 0.63 K/ L 0.00-1.30 (test code = 415) EOSINOPHILS ABSOLUTE COUNT 0.12 K/ L 0.00-0.50 (BEAKER) (test code = 416) BASOPHILS ABSOLUTE COUNT (BEAKER) 0.05 K/ L 0.00-0.20 (test code = 417) IMMATURE GRANULOCYTES-RELATIVE 0 % 0-0 PERCENT (BEAKER) (test code = 2801) VANCOMYCIN LEVEL, [id number] 17:34:00 Test Item Value Reference Range Interpretation Comments VANCOMYCIN TROUGH (BEAKER) (test 15.1 ug/mL 10.0-20.0 code = 522) Purchasing Manager/Sales ID - [id number] METABOLIC [id number] 06:04:00 Test Item Value Reference Range Interpretation Comments SODIUM (BEAKER) (test 142 meq/L 135-148 code = 381) POTASSIUM (BEAKER) 3.5 meq/L 3.6-5.5 L (test code = 379) CHLORIDE (BEAKER) 105 meq/L 98-106 (test code = 382) CO2 (BEAKER) (test 29 meq/L 20-29 code = 355) BLOOD UREA NITROGEN 27 mg/dL 10-26 H (BEAKER) (test code = 354) CREATININE (BEAKER) 1.45 mg/dL 0.50-1.20 H (test code = 358) GLUCOSE RANDOM 106 mg/dL 70-110 (BEAKER) (test code = 652) CALCIUM (BEAKER) 8.5 mg/dL 8.5-10.5 (test code = 697) EGFR (BEAKER) (test INSUFFIC IENT CLINICAL code = 1092) DATA TO CALCULA TE ESTIMATED GFR. Purchasing Manager/Sales ID - [id number] ID - [id number] ID - [id number] ID - [id number] ID - [id number] ID - [id number] ID - [id number] ID - [id number] ID - [id number] ID - [id number] ID - [id number] ID - [id number] ID - [id number] W/PLT COUNT & AUTO [id number] 05:43:00 Test Item Value Reference Range Interpretation Comments WHITE BLOOD CELL COUNT (BEAKER) 5.3 K/ L 4.0-10.0 (test code = 775) RED BLOOD CELL COUNT (BEAKER) 3.38 M/ L 4.00-5.00 L (test code = 761) HEMOGLOBIN (BEAKER) (test code = 10.1 GM/DL 12.0-15.5 L 410) HEMATOCRIT (BEAKER) (test code = 31.4 % 36.0-46.0 L 411) MEAN CORPUSCULAR VOLUME (BEAKER) 92.9 fL 82.0-99.0 (test code = 753) MEAN CORPUSCULAR HEMOGLOBIN 29.9 pg 27.0-33.0 (BEAKER) (test code = 751) MEAN CORPUSCULAR HEMOGLOBIN CONC 32.2 GM/DL 32.0-36.0 (BEAKER) (test code = 752) RED CELL DISTRIBUTION WIDTH 19.1 % 12.0-15.0 H (BEAKER) (test code = 412) PLATELET COUNT (BEAKER) (test 122 K/CU MM 150-430 L code = 756) MEAN PLATELET VOLUME (BEAKER) 10.8 fL 6.0-11.5 (test code = 754) NUCLEATED RED BLOOD CELLS 0 /100 WBC 0-0 (BEAKER) (test code = 413) NEUTROPHILS RELATIVE PERCENT 75 % (BEAKER) (test code = 429) LYMPHOCYTES RELATIVE PERCENT 13 % (BEAKER) (test code = 430) MONOCYTES RELATIVE PERCENT 9 % (BEAKER) (test code = 431) EOSINOPHILS RELATIVE PERCENT 2 % (BEAKER) (test code = 432) BASOPHILS RELATIVE PERCENT 1 % (BEAKER) (test code = 437) NEUTROPHILS ABSOLUTE COUNT 3.97 K/ L 1.80-8.00 (BEAKER) (test code = 670) LYMPHOCYTES ABSOLUTE COUNT 0.67 K/ L 1.48-4.50 L (BEAKER) (test code = 414) MONOCYTES ABSOLUTE COUNT (BEAKER) 0.49 K/ L 0.00-1.30 (test code = 415) EOSINOPHILS ABSOLUTE COUNT 0.13 K/ L 0.00-0.50 (BEAKER) (test code = 416) BASOPHILS ABSOLUTE COUNT (BEAKER) 0.04 K/ L 0.00-0.20 (test code = 417) IMMATURE GRANULOCYTES-RELATIVE 0 % 0-0 PERCENT (BEAKER) (test code = 2801) BLOOD [id number] 22:00:00 Test Item Value Reference Range Interpretation Comments CULTURE (BEAKER) (test No growth in 5 days code = 1095) URINALYSIS W/ REFLEX URINE [id number] 13:45:00 Test Item Value Reference Range Interpretation Comments COLOR (BEAKER) (test code = 470) Yellow CLARITY (BEAKER) (test code = 469) Clear SPECIFIC GRAVITY UA (BEAKER) (test 1.015 1.001-1.035 code = 468) PH UA (BEAKER) (test code = 467) 6.0 5.0-8.0 PROTEIN UA (BEAKER) (test code = Negative Negative 464) GLUCOSE UA (BEAKER) (test code = Negative Negative 365) KETONES UA (BEAKER) (test code = Negative Negative 371) BILIRUBIN UA (BEAKER) (test code = Negative Negative 462) BLOOD UA (BEAKER) (test code = Negative Negative 461) NITRITE UA (BEAKER) (test code = Negative Negative 465) LEUKOCYTE ESTERASE UA (BEAKER) Small Negative A (test code = 466) UROBILINOGEN UA (BEAKER) (test 1.0 mg/dL 0.2-1.0 code = 463) BACTERIA (BEAKER) (test code = Occasional 517) RBC UA-MANUAL (BEAKER) (test code <5 /HPF = 1659) WBC UA-MANUAL (BEAKER) (test code 5-10 /HPF = 1661) SQUAMOUS EPITHELIAL MANUAL <5 /HPF (BEAKER) (test code = 1663) RENAL EPITHELIAL MANUAL (BEAKER) <5 /HPF (test code = 1662) SOURCE(BEAKER) (test code = 2795) BLOOD [id number] 19:00:00 Test Item Value Reference Range Interpretation Comments CULTURE (BEAKER) (test No growth in 5 days code = 1095) VANCOMYCIN LEVEL, [id number] 18:12:00 Test Item Value Reference Range Interpretation Comments VANCOMYCIN TROUGH (BEAKER) (test 19.3 ug/mL 10.0-20.0 code = 522) Purchasing Manager/Sales ID - [id number], FOREARM, 2 VIEWS, [id number] 13:56:00Reason for exam:->[facility] : 1930 Sex: FFINAL REPORT TECHNIQUE: 2 views of the left forearm HISTORY: left arm swelling. COMPARISON: None. IMPRESSION:No acute displaced fracture or dislocation. Mild joint space narrowing at the radiocarpal joint. Possible old trauma at the base of the first digit and distal radius. If there is point tenderness over the distal radius, consider nondisplaced fracture.Mid forearm moderate soft tissue swelling. Signed: Sujit Carmichael MDReport Verified Date/Time: 09/01/2020 13:56:05 Reading Location: [facility] Radiology Reading Room [id number] 12:44:00 Test Item Value Reference Range Interpretation Comments POTASSIUM (BEAKER) (test code = 3.8 meq/L 3.6-5.5 379) Purchasing Manager/Sales ID - [id number] ID - [id number] ID - [id number] ID - [id number] 05:16:00 Test Item Value Reference Range Interpretation Comments CREATININE (BEAKER) 1.43 mg/dL 0.50-1.20 H (test code = 358) EGFR (BEAKER) (test INSUFFIC IENT CLINICAL code = 1092) DATA TO CALCULA TE ESTIMATED GFR. Purchasing Manager/Sales ID - [id number] ID - [id number] ID - [id number] ID - [id number] BLOOD [id number] 08:36:00 Test Item Value Reference Range Interpretation Comments CULTURE A From Aerobic An d (BEAKER) (test Anaerobic Bot tles code = 1095) Coagulase negat bernie Staphylococcus GRAM STAIN From aerobic and RESULT (BEAKER) anaerobic (test code = bottles: gram 1123) positive cocci in clusters CBC W/PLT COUNT & AUTO [id number] 07:08:00 Test Item Value Reference Range Interpretation Comments WHITE BLOOD CELL COUNT (BEAKER) 5.8 K/ L 4.0-10.0 (test code = 775) RED BLOOD CELL COUNT (BEAKER) 3.69 M/ L 4.00-5.00 L (test code = 761) HEMOGLOBIN (BEAKER) (test code = 11.1 GM/DL 12.0-15.5 L 410) HEMATOCRIT (BEAKER) (test code = 34.6 % 36.0-46.0 L 411) MEAN CORPUSCULAR VOLUME (BEAKER) 93.8 fL 82.0-99.0 (test code = 753) MEAN CORPUSCULAR HEMOGLOBIN 30.1 pg 27.0-33.0 (BEAKER) (test code = 751) MEAN CORPUSCULAR HEMOGLOBIN CONC 32.1 GM/DL 32.0-36.0 (BEAKER) (test code = 752) RED CELL DISTRIBUTION WIDTH 19.5 % 12.0-15.0 H (BEAKER) (test code = 412) PLATELET COUNT (BEAKER) (test 113 K/CU MM 150-430 L code = 756) MEAN PLATELET VOLUME (BEAKER) 9.9 fL 6.0-11.5 (test code = 754) NUCLEATED RED BLOOD CELLS 0 /100 WBC 0-0 (BEAKER) (test code = 413) NEUTROPHILS RELATIVE PERCENT 68 % (BEAKER) (test code = 429) LYMPHOCYTES RELATIVE PERCENT 12 % (BEAKER) (test code = 430) MONOCYTES RELATIVE PERCENT 15 % (BEAKER) (test code = 431) EOSINOPHILS RELATIVE PERCENT 3 % (BEAKER) (test code = 432) BASOPHILS RELATIVE PERCENT 1 % (BEAKER) (test code = 437) NEUTROPHILS ABSOLUTE COUNT 3.95 K/ L 1.80-8.00 (BEAKER) (test code = 670) LYMPHOCYTES ABSOLUTE COUNT 0.68 K/ L 1.48-4.50 L (BEAKER) (test code = 414) MONOCYTES ABSOLUTE COUNT (BEAKER) 0.87 K/ L 0.00-1.30 (test code = 415) EOSINOPHILS ABSOLUTE COUNT 0.20 K/ L 0.00-0.50 (BEAKER) (test code = 416) BASOPHILS ABSOLUTE COUNT (BEAKER) 0.05 K/ L 0.00-0.20 (test code = 417) IMMATURE GRANULOCYTES-RELATIVE 1 % 0-0 H PERCENT (BEAKER) (test code = 2804) COMPREHENSIVE METABOLIC [id number] 05:25:00 Test Item Value Reference Range Interpretation Comments TOTAL PROTEIN 6.0 gm/dL 6.0-8.5 (BEAKER) (test code = 770) ALBUMIN (BEAKER) 3.0 g/dL 3.5-5.0 L (test code = 1145) ALKALINE PHOSPHATASE 124 U/L 30-115 H (BEAKER) (test code = 346) BILIRUBIN TOTAL 1.4 mg/dL 0.1-1.2 H (BEAKER) (test code = 377) SODIUM (BEAKER) (test 144 meq/L 135-148 code = 381) POTASSIUM (BEAKER) 3.3 meq/L 3.6-5.5 L (test code = 379) CHLORIDE (BEAKER) 106 meq/L 98-106 (test code = 382) CO2 (BEAKER) (test 26 meq/L 20-29 code = 355) BLOOD UREA NITROGEN 29 mg/dL 10-26 H (BEAKER) (test code = 354) CREATININE (BEAKER) 1.41 mg/dL 0.50-1.20 H (test code = 358) GLUCOSE RANDOM 101 mg/dL 70-110 (BEAKER) (test code = 652) CALCIUM (BEAKER) 9.1 mg/dL 8.5-10.5 (test code = 697) AST (SGOT) (BEAKER) 44 U/L 5-40 H (test code = 353) ALT (SGPT) (BEAKER) 25 U/L 5-50 (test code = 347) EGFR (BEAKER) (test INSUFFIC IENT CLINICAL code = 1092) DATA TO CALCULA TE ESTIMATED GFR. Purchasing Manager/Sales ID - [id number] ID - [id number] ID - [id number] ID - [id number] ID - CZMW46Ywwdbjhn ID - [id number] ID - JABX27Bwuyobmm ID - UQCL68Keecyxrm ID - INXZ28Xobvauyz ID - IPYG94Hwztlqzk ID - SQFU38Nhoocqci ID - ZQBX57Wurcaycr ID - MWTA97Vmlgzmxd ID - FDUB83Hdbxxpcq ID - GIIU46Nyweecfq ID - ZSMY41Fpzivewz ID - OIUU72Vkfwftiq ID - TUJX69Hyfhkigg ID - [id number] LEVEL, [id number] 05:14:00 Test Item Value Reference Range Interpretation Comments VANCOMYCIN TROUGH (BEAKER) (test 22.3 ug/mL 10.0-20.0 H code = 522) Purchasing Manager/Sales ID - [id number] W/PLT COUNT & AUTO [id number] 05:02:00 Test Item Value Reference Range Interpretation Comments WHITE BLOOD CELL COUNT (BEAKER) 8.6 K/ L 4.0-10.0 (test code = 775) RED BLOOD CELL COUNT (BEAKER) 4.01 M/ L 4.00-5.00 (test code = 761) HEMOGLOBIN (BEAKER) (test code = 11.8 GM/DL 12.0-15.5 L 410) HEMATOCRIT (BEAKER) (test code = 37.2 % 36.0-46.0 411) MEAN CORPUSCULAR VOLUME (BEAKER) 92.8 fL 82.0-99.0 (test code = 753) MEAN CORPUSCULAR HEMOGLOBIN 29.4 pg 27.0-33.0 (BEAKER) (test code = 751) MEAN CORPUSCULAR HEMOGLOBIN CONC 31.7 GM/DL 32.0-36.0 L (BEAKER) (test code = 752) RED CELL DISTRIBUTION WIDTH 19.6 % 12.0-15.0 H (BEAKER) (test code = 412) PLATELET COUNT (BEAKER) (test 141 K/CU MM 150-430 L code = 756) MEAN PLATELET VOLUME (BEAKER) 10.0 fL 6.0-11.5 (test code = 754) NUCLEATED RED BLOOD CELLS 0 /100 WBC 0-0 (BEAKER) (test code = 413) NEUTROPHILS RELATIVE PERCENT 73 % (BEAKER) (test code = 429) LYMPHOCYTES RELATIVE PERCENT 9 % (BEAKER) (test code = 430) MONOCYTES RELATIVE PERCENT 15 % (BEAKER) (test code = 431) EOSINOPHILS RELATIVE PERCENT 2 % (BEAKER) (test code = 432) BASOPHILS RELATIVE PERCENT 1 % (BEAKER) (test code = 437) NEUTROPHILS ABSOLUTE COUNT 6.27 K/ L 1.80-8.00 (BEAKER) (test code = 670) LYMPHOCYTES ABSOLUTE COUNT 0.77 K/ L 1.48-4.50 L (BEAKER) (test code = 414) MONOCYTES ABSOLUTE COUNT (BEAKER) 1.24 K/ L 0.00-1.30 (test code = 415) EOSINOPHILS ABSOLUTE COUNT 0.18 K/ L 0.00-0.50 (BEAKER) (test code = 416) BASOPHILS ABSOLUTE COUNT (BEAKER) 0.04 K/ L 0.00-0.20 (test code = 417) IMMATURE GRANULOCYTES-RELATIVE 1 % 0-0 H PERCENT (BEAKER) (test code = 2801) [id number] 18:38:00 Test Item Value Reference Range Interpretation Comments AMMONIA (BEAKER) 28 mol/L 17-80 Specimen sl ightly (test code = 348) hemolyzed Purchasing Manager/Sales ID - JUSTINOperator ID - JUSTINOperator ID - JUSTINOperator ID - EMMIE COMPREHENSIVE METABOLIC [id number] 04:49:00 Test Item Value Reference Range Interpretation Comments TOTAL PROTEIN 6.2 gm/dL 6.0-8.5 (BEAKER) (test code = 770) ALBUMIN (BEAKER) 3.1 g/dL 3.5-5.0 L (test code = 1145) ALKALINE PHOSPHATASE 116 U/L 30-115 H (BEAKER) (test code = 346) BILIRUBIN TOTAL 1.6 mg/dL 0.1-1.2 H (BEAKER) (test code = 377) SODIUM (BEAKER) (test 146 meq/L 135-148 code = 381) POTASSIUM (BEAKER) 3.3 meq/L 3.6-5.5 L (test code = 379) CHLORIDE (BEAKER) 109 meq/L 98-106 H (test code = 382) CO2 (BEAKER) (test 25 meq/L 20-29 code = 355) BLOOD UREA NITROGEN 25 mg/dL 10-26 (BEAKER) (test code = 354) CREATININE (BEAKER) 1.52 mg/dL 0.50-1.20 H (test code = 358) GLUCOSE RANDOM 110 mg/dL 70-110 (BEAKER) (test code = 652) CALCIUM (BEAKER) 9.0 mg/dL 8.5-10.5 (test code = 697) AST (SGOT) (BEAKER) 34 U/L 5-40 (test code = 353) ALT (SGPT) (BEAKER) 21 U/L 5-50 (test code = 347) EGFR (BEAKER) (test INSUFFIC IENT CLINICAL code = 1092) DATA TO CALCULA TE ESTIMATED GFR. Purchasing Manager/Sales ID - LITOOperator ID - LITOOperator ID - LITOOperator ID - LITOOperator ID - LITOOperator ID - LITOOperator ID - LITOOperator ID - LITOOperator ID - LITOOperator ID - LITOOperator ID - LITOOperator ID - LITOOperator ID - LITOOperator ID - LITOOperator ID - LITOOperator ID - LITOOperator ID - L ITOOperator ID - LITOOperator ID - LITOCBC W/PLT COUNT & AUTO DIFFERENTIAL 2020-08-29 04:34:00 Test Item Value Reference Range Interpretation Comments WHITE BLOOD CELL COUNT (BEAKER) 7.8 K/ L 4.0-10.0 (test code = 775) RED BLOOD CELL COUNT (BEAKER) 4.28 M/ L 4.00-5.00 (test code = 761) HEMOGLOBIN (BEAKER) (test code = 12.6 GM/DL 12.0-15.5 410) HEMATOCRIT (BEAKER) (test code = 40.1 % 36.0-46.0 411) MEAN CORPUSCULAR VOLUME (BEAKER) 93.7 fL 82.0-99.0 (test code = 753) MEAN CORPUSCULAR HEMOGLOBIN 29.4 pg 27.0-33.0 (BEAKER) (test code = 751) MEAN CORPUSCULAR HEMOGLOBIN CONC 31.4 GM/DL 32.0-36.0 L (BEAKER) (test code = 752) RED CELL DISTRIBUTION WIDTH 20.0 % 12.0-15.0 H (BEAKER) (test code = 412) PLATELET COUNT (BEAKER) (test 143 K/CU MM 150-430 L code = 756) MEAN PLATELET VOLUME (BEAKER) 11.7 fL 6.0-11.5 H (test code = 754) NUCLEATED RED BLOOD CELLS 0 /100 WBC 0-0 (BEAKER) (test code = 413) NEUTROPHILS RELATIVE PERCENT 82 % (BEAKER) (test code = 429) LYMPHOCYTES RELATIVE PERCENT 6 % (BEAKER) (test code = 430) MONOCYTES RELATIVE PERCENT 11 % (BEAKER) (test code = 431) EOSINOPHILS RELATIVE PERCENT 0 % (BEAKER) (test code = 432) BASOPHILS RELATIVE PERCENT 0 % (BEAKER) (test code = 437) NEUTROPHILS ABSOLUTE COUNT 6.41 K/ L 1.80-8.00 (BEAKER) (test code = 670) LYMPHOCYTES ABSOLUTE COUNT 0.50 K/ L 1.48-4.50 L (BEAKER) (test code = 414) MONOCYTES ABSOLUTE COUNT (BEAKER) 0.83 K/ L 0.00-1.30 (test code = 415) EOSINOPHILS ABSOLUTE COUNT 0.01 K/ L 0.00-0.50 (BEAKER) (test code = 416) BASOPHILS ABSOLUTE COUNT (BEAKER) 0.02 K/ L 0.00-0.20 (test code = 417) IMMATURE GRANULOCYTES-RELATIVE 1 % 0-0 H PERCENT (LYNETTE) (test code = 2801) MR, BRAIN, WITHOUT [id number] 12:11:00Unlisted Reason for Exam - Click Yes and Enter Reason Below->No [facility] : 1930 Sex: FFINAL REPORT MR, BRAIN, WITHOUT CONTRAST INDICATION: Altered mental status TECHNIQUE: Multiplanar, multisequence MR imaging of the brain without intravenous contrast. COMPARISON: None FINDINGS: There is no restricted diffusion. Moderate volume loss. Moderate to severewhite matter disease. Gliosis is present in the left parieto-occipital region. No midline shift or hy drocephalus. The larger intracranial vascular flow-voids are preserved. Paranasal sinuses and mastoid air cells are clear. There is normal bone marrow signal intensity within the calvarium and skull base. IMPRESSION: Chronic involutional and ischemic changes. No recent infarct or hemorrhage. Signed: Momo lee JR, Robert MDRepresearch [facility] Verified Date/Time: 08/28/2020 12:11:45 Reading Location: [facility] C013V Neuro Reading Room TROPONIN [id number] 06:33:00 Test Item Value Reference Range Interpretation Comments TROPONIN I (LYNETTE) (test code = 0.19 ng/mL 0.00-0.15 H 397) Troponin I (TnI) levels must be interpreted in the context of the presenting symptoms and the clinical findings. Elevated TnI levels indicate myocardial damage, but are not specific for ischemic heart disease. Elevated TnI levels are seen in patients with other cardiac conditions (including myocarditis and congestive heart failure), and slight TnI elevations occur in patients with other conditions, including sepsis, renal failure, acidosis, acute neurological disease, and persistent tachyarrhythmia.Purchasing Manager/Sales ID - NALINICOMPREHENSIVE METABOLIC [id number] 06:15:00 Test Item Value Reference Range Interpretation Comments TOTAL PROTEIN 6.2 gm/dL 6.0-8.5 Specimen sligh tly (BEAKER) (test code = hemoly zed 770) ALBUMIN (BEAKER) 3.0 g/dL 3.5-5.0 L Specimen sl ightly (test code = 1145) hemolyzed ALKALINE PHOSPHATASE 115 U/L 30-115 (BEAKER) (test code = 346) BILIRUBIN TOTAL 1.9 mg/dL 0.1-1.2 H Specimen sli ghtly (BEAKER) (test code = hemoly zed 377) SODIUM (BEAKER) (test 146 meq/L 135-148 code = 381) POTASSIUM (BEAKER) 3.6 meq/L 3.6-5.5 Specimen slightly (test code = 379) hemolyzed CHLORIDE (BEAKER) 110 meq/L 98-106 H (test code = 382) CO2 (BEAKER) (test 23 meq/L 20-29 code = 355) BLOOD UREA NITROGEN 29 mg/dL 10-26 H (BEAKER) (test code = 354) CREATININE (BEAKER) 1.53 mg/dL 0.50-1.20 H Specimen slightly (test code = 358) hemolyzed GLUCOSE RANDOM 129 mg/dL 70-110 H (BEAKER) (test code = 652) CALCIUM (BEAKER) 9.0 mg/dL 8.5-10.5 (test code = 697) AST (SGOT) (BEAKER) 34 U/L 5-40 Specimen slightly (test code = 353) hemolyzed ALT (SGPT) (BEAKER) 22 U/L 5-50 Specimen slightly (test code = 347) hemolyzed EGFR (BEAKER) (test INSUFFIC IENT CLINICAL code = 1092) DATA TO CALCULA TE ESTIMATED GFR. Purchasing Manager/Sales ID - NALINIOperator ID - NALINIOperator ID - NALINIOperator ID - NALINIOperator ID - NALINIOperator ID - NALINIOperator ID - NALINIOperator ID - NALINIOperator ID - NALINIOperator ID - NALINIOperator ID - NALINIOperator ID - NALINIOperator ID - NALINIOperator ID - NALINIOperator ID - NALINIOperator ID - NALINIOperator ID - NALINIOperator ID - NALINIOperator ID - NALINISpecimen slightly ictericCBC W/PLT COUNT & AUTO [id number] 06:10:00 Test Item Value Reference Range Interpretation Comments WHITE BLOOD CELL COUNT (BEAKER) 11.1 K/ L 4.0-10.0 H (test code = 775) RED BLOOD CELL COUNT (BEAKER) 4.41 M/ L 4.00-5.00 (test code = 761) HEMOGLOBIN (BEAKER) (test code = 13.0 GM/DL 12.0-15.5 410) HEMATOCRIT (BEAKER) (test code = 40.6 % 36.0-46.0 411) MEAN CORPUSCULAR VOLUME (BEAKER) 92.1 fL 82.0-99.0 (test code = 753) MEAN CORPUSCULAR HEMOGLOBIN 29.5 pg 27.0-33.0 (BEAKER) (test code = 751) MEAN CORPUSCULAR HEMOGLOBIN CONC 32.0 GM/DL 32.0-36.0 (BEAKER) (test code = 752) RED CELL DISTRIBUTION WIDTH 20.2 % 12.0-15.0 H (BEAKER) (test code = 412) PLATELET COUNT (BEAKER) (test 149 K/CU MM 150-430 L code = 756) MEAN PLATELET VOLUME (BEAKER) 10.2 fL 6.0-11.5 (test code = 754) NUCLEATED RED BLOOD CELLS 0 /100 WBC 0-0 (BEAKER) (test code = 413) NEUTROPHILS RELATIVE PERCENT 86 % (BEAKER) (test code = 429) LYMPHOCYTES RELATIVE PERCENT 6 % (BEAKER) (test code = 430) MONOCYTES RELATIVE PERCENT 7 % (BEAKER) (test code = 431) EOSINOPHILS RELATIVE PERCENT 0 % (BEAKER) (test code = 432) BASOPHILS RELATIVE PERCENT 0 % (BEAKER) (test code = 437) NEUTROPHILS ABSOLUTE COUNT 9.58 K/ L 1.80-8.00 H (BEAKER) (test code = 670) LYMPHOCYTES ABSOLUTE COUNT 0.61 K/ L 1.48-4.50 L (BEAKER) (test code = 414) MONOCYTES ABSOLUTE COUNT (BEAKER) 0.82 K/ L 0.00-1.30 (test code = 415) EOSINOPHILS ABSOLUTE COUNT 0.02 K/ L 0.00-0.50 (BEAKER) (test code = 416) BASOPHILS ABSOLUTE COUNT (BEAKER) 0.03 K/ L 0.00-0.20 (test code = 417) IMMATURE GRANULOCYTES-RELATIVE 1 % 0-0 H PERCENT (BEAKER) (test code = 2801) TROPONIN [id number] 01:02:00 Test Item Value Reference Range Interpretation Comments TROPONIN I (BEAKER) (test code = 0.19 ng/mL 0.00-0.15 H 397) Troponin I (TnI) levels must be interpreted in the context of the presenting symptoms and the clinical findings. Elevated TnI levels indicate myocardial damage, but are not specific for ischemic heart disease. Elevated TnI levels are seen in patients with other cardiac conditions (including myocarditis and congestive heart failure), and slight TnI elevations occur in patients with other conditions, including sepsis, renal failure, acidosis, acute neurological disease, and persistent tachyarrhythmia.Purchasing Manager/Sales ID - NALINIBASIC METABOLIC [id number] 15:22:00 Test Item Value Reference Range Interpretation Comments SODIUM (BEAKER) (test 143 meq/L 135-148 code = 381) POTASSIUM (BEAKER) 5.8 meq/L 3.6-5.5 H Specimen moderately (test code = 379) hemolyzed CHLORIDE (BEAKER) 110 meq/L 98-106 H (test code = 382) CO2 (BEAKER) (test 18 meq/L 20-29 L code = 355) BLOOD UREA NITROGEN 31 mg/dL 10-26 H (BEAKER) (test code = 354) CREATININE (BEAKER) 1.59 mg/dL 0.50-1.20 H Specimen moderately (test code = 358) hemolyzed GLUCOSE RANDOM 99 mg/dL 70-110 (BEAKER) (test code = 652) CALCIUM (BEAKER) 9.0 mg/dL 8.5-10.5 (test code = 697) EGFR (BEAKER) (test INSUFFIC IENT CLINICAL code = 1092) DATA TO CALCULA TE ESTIMATED GFR. Purchasing Manager/Sales ID - [id number] ID - [id number] ID - [id number] ID - [id number] ID - [id number] ID - JUSTINOperator ID - JUSTINOperator ID - JUSTINOperator ID - JUSTINOperator ID- [id number] 15:18:00 Test Item Value Reference Range Interpretation Comments MAGNESIUM (BEAKER) 2.5 mg/dL 1.5-3.0 Specimen moderately (test code = 627) hemolyzed Purchasing Manager/Sales ID - [id number] ID - [id number] ID - [id number] ID - JUSTINHEPATIC FUNCTION [id number] 15:18:00 Test Item Value Reference Range Interpretation Comments TOTAL PROTEIN (BEAKER) 7.3 gm/dL 6.0-8.5 Speci men moderately (test code = 770) hemolyzed ALBUMIN (BEAKER) (test 3.4 g/dL 3.5-5.0 L Speci men moderately code = 1145) hemolyzed BILIRUBIN TOTAL 2.2 mg/dL 0.1-1.2 H Specimen mod erately (BEAKER) (test code = hemoly zed 377) BILIRUBIN DIRECT 1.0 mg/dL 0.0-0.4 H Specimen mo derately (BEAKER) (test code = hemoly zed 706) ALKALINE PHOSPHATASE 129 U/L 30-115 H (BEAKER) (test code = 346) AST (SGOT) (BEAKER) 54 U/L 5-40 H Specimen moderately (test code = 353) hemolyzed ALT (SGPT) (BEAKER) 26 U/L 5-50 Specimen moderately (test code = 347) hemolyzed Purchasing Manager/Sales ID - [id number] ID - [id number] ID - JUSTINOperator ID - JUSTINOperator ID - JUSTINOperator ID - JUSTINOperator ID - JUSTINLIPID PANEL 2020-08-27 15:17:00 Test Item Value Reference Range Interpretation Comments TRIGLYCERIDES (BEAKER) 91 mg/dL Speci men moderately (test code = 540) hemolyzed CHOLESTEROL (BEAKER) 121 mg/dL Specime n moderately (test code = 631) hemolyzed HDL CHOLESTEROL (BEAKER) 69 mg/dL (test code = 976) LDL CHOLESTEROL 34 mg/dL CALCULATED (BEAKER) (test code = 633) Triglyceride Reference Range: Low Risk <150 Borderline 150-199 High Risk 200-499 Very High Risk >=500Cholesterol Reference Range: Low Risk <200 Borderline 200-239 High Risk >240HDL Cholesterol Reference Range: Low Risk >=60 High Risk <40LDL Cholesterol Reference Range: Optimal <100 Near Optimal 100-129 Borderline 130-159 High 160-189 Very High >=190 Purchasing Manager/Sales ID - [id number] ID - JUSTINOperator ID - JUSTINLACTIC ACID, [id number] 15:10:00 Test Item Value Reference Range Interpretation Comments LACTATE BLOOD 2.11 mmol/L See_Comment HH [Automated me ssage] VENOUS (2) (BEAKER) The syst em which (test code = 2872) generated this result transmitted ref erence range: 0.50-<2. 00. The reference range was not used to interpr et this result as normal/abnormal . Purchasing Manager/Sales ID - [id number] ID - [id number] ID - [id number] ID - [id number] [id number] 15:08:00 Test Item Value Reference Range Interpretation Comments HEMOGLOBIN A1C (BEAKER) (test code = 5.4 % 4.3-6.1 368) Purchasing Manager/Sales ID - [id number] W/PLT COUNT & AUTO [id number] 14:54:00 Test Item Value Reference Range Interpretation Comments WHITE BLOOD CELL COUNT (BEAKER) 11.6 K/ L 4.0-10.0 H (test code = 775) RED BLOOD CELL COUNT (BEAKER) 4.74 M/ L 4.00-5.00 (test code = 761) HEMOGLOBIN (BEAKER) (test code = 14.0 GM/DL 12.0-15.5 410) HEMATOCRIT (BEAKER) (test code = 43.8 % 36.0-46.0 411) MEAN CORPUSCULAR VOLUME (BEAKER) 92.4 fL 82.0-99.0 (test code = 753) MEAN CORPUSCULAR HEMOGLOBIN 29.5 pg 27.0-33.0 (BEAKER) (test code = 751) MEAN CORPUSCULAR HEMOGLOBIN CONC 32.0 GM/DL 32.0-36.0 (BEAKER) (test code = 752) RED CELL DISTRIBUTION WIDTH 20.5 % 12.0-15.0 H (BEAKER) (test code = 412) PLATELET COUNT (BEAKER) (test 141 K/CU MM 150-430 L code = 756) MEAN PLATELET VOLUME (BEAKER) 10.0 fL 6.0-11.5 (test code = 754) NUCLEATED RED BLOOD CELLS 0 /100 WBC 0-0 (BEAKER) (test code = 413) NEUTROPHILS RELATIVE PERCENT 89 % (BEAKER) (test code = 429) LYMPHOCYTES RELATIVE PERCENT 5 % (BEAKER) (test code = 430) MONOCYTES RELATIVE PERCENT 5 % (BEAKER) (test code = 431) EOSINOPHILS RELATIVE PERCENT 0 % (BEAKER) (test code = 432) BASOPHILS RELATIVE PERCENT 0 % (BEAKER) (test code = 437) NEUTROPHILS ABSOLUTE COUNT 10.33 K/ L 1.80-8.00 H (BEAKER) (test code = 670) LYMPHOCYTES ABSOLUTE COUNT 0.59 K/ L 1.48-4.50 L (BEAKER) (test code = 414) MONOCYTES ABSOLUTE COUNT (BEAKER) 0.55 K/ L 0.00-1.30 (test code = 415) EOSINOPHILS ABSOLUTE COUNT 0.02 K/ L 0.00-0.50 (BEAKER) (test code = 416) BASOPHILS ABSOLUTE COUNT (BEAKER) 0.04 K/ L 0.00-0.20 (test code = 417) IMMATURE GRANULOCYTES-RELATIVE 1 % 0-0 H PERCENT (BEAKER) (test code = 2801) URINALYSIS W/ REFLEX URINE [id number] 13:27:00 Test Item Value Reference Range Interpretation Comments COLOR (BEAKER) (test code = 470) Yellow CLARITY (BEAKER) (test code = 469) Clear SPECIFIC GRAVITY UA (BEAKER) (test 1.020 1.001-1.035 code = 468) PH UA (BEAKER) (test code = 467) 6.5 5.0-8.0 PROTEIN UA (BEAKER) (test code = Negative Negative 464) GLUCOSE UA (BEAKER) (test code = Negative Negative 365) KETONES UA (BEAKER) (test code = Trace Negative A 371) BILIRUBIN UA (BEAKER) (test code = Negative Negative 462) BLOOD UA (BEAKER) (test code = Trace Negative A 461) NITRITE UA (BEAKER) (test code = Negative Negative 465) LEUKOCYTE ESTERASE UA (BEAKER) Negative Negative (test code = 466) UROBILINOGEN UA (BEAKER) (test 0.2 mg/dL 0.2-1.0 code = 463) BACTERIA (BEAKER) (test code = Rare 517) RBC UA-MANUAL (BEAKER) (test code 10-20 /HPF = 1659) WBC UA-MANUAL (BEAKER) (test code <5 /HPF = 1661) SQUAMOUS EPITHELIAL MANUAL <5 /HPF (BEAKER) (test code = 1663) RENAL EPITHELIAL MANUAL (BEAKER) <5 /HPF (test code = 1662) SOURCE(BEAKER) (test code = 2795) RAD, CHEST, 1 VIEW, NON [id number] 12:57:00Reason for exam:- >dyspneaShould this be performed at the bedside?->Yes [facility] 1930 Sex: FFINAL REPORT CHEST AP PORTABLE SUPINE Comparison exam: 08/29/2007 Hist ory provided: Dyspnea Heart size magnified by projection. Pulmonary edema pattern bilaterally. Signed: Kevin Montoya Verified Date/Time: 08/27/2020 12:57:13 Reading Location: [facility] Radiology Reading Room COVID-19 (ID NOW RAPID TESTING)2020-02-15 16:05:00 Test Item Value Reference Range Interpretation Comments SARS-CoV-2 Rapid ID NOW Not Detected Not Detected (test code = 79644-7) ELAYNE (test code = ELAYNE) ID NOW COVID-19 Assay is an isothermal nucleic acid amplification test intended for the qualitative detection of nucleic acid from SARS-CoV-2 viral RNA in nasopharyngeal ([employer]ER) specimens. It is used under Emergency Use Authorization (EUA) by FDA. The limit of detection (LOD) of the assay is 125 Genome Equivalents/mL. A positive result is indicative of the presence of SARS-CoV-2 RNA. ?Clinical correlation with patient history and other diagnostic information is necessary to determine patient infection status. A negative (Not Detected) result does not preclude SARS-CoV-2 infection. In patients with clinical symptoms and other tests that are consistent with SARS-CoV-2 infection, negative results should be treated as presumptive negative and a new specimen should be tested with alternative PCR molecular test. Invalid: Please collect a new specimen for repeat patient testing if clinically indicated. Lab Interpretation Normal (test code = 06303-9) [facility] METABOLIC PANEL (NA, K, CL, CO2, GLUCOSE, BUN, CREATININE, CA)2019-12-18 20:16:00 Test Item Value Reference Range Interpretation Comments NA (test code = 142 mmol/L 135-145 8823466433) K (test code = 3.6 mmol/L 3.5-5 5296344139) CL (test code = 103 mmol/L 98-108 8492011915) CO2 TOTAL (test code = 35 mmol/L 23-31 H 2883164261) AGAP (test code = 2-16 3674118032) BUN (test code = 59 mg/dL 7-23 H 4435008912) GLUCOSE (test code = 151 mg/dL 70-110 H 5831850254) CREATININE (test code = 1.55 mg/dL 0.5-1.04 H 2346584867) CALCIUM (test code = 9.0 mg/dL 8.6-10.6 0720339246) eGFR Calculation mL/min/1.73m2 (Non-) (test code = 3435891382) eGFR Calculation mL/min/1.73m2 () (test code = 3014673779) ELAYNE (test code = ELAYNE) Association of Glomerular Filtration Rate (GFR) and Staging of Kidney Disease* + --+ --+ ------+| GFR (mL/min/1.73 m2) ?| With Kidney Damage ?| ?Without Kidney Damage+ --------+ --------+ +| ?>90 ?| ?Stage one ?| ? Normal ?+ ---+ ---+ -------+| ?60-89 ?| ?Stage two ?| ? Decreased GFR ? + --+ --+ ------+| ?30-59 ?| ?Stage three ?| ? Stage three ? + --+ --+ ------+| ?15-29 ?| ?Stage four ? | ? Stage four ?+ ---+ ---+ -------+| ?<15 (or dialysis) ? ?| ?Stage five ? | ? Stage five ?+ ---+ ---+ -------+ *Each stage assumes the associated GFR level has been in effect for at least three months. ?Stages 1 to 5, with or without kidney disease, indicate chronic kidney disease. Notes: Determination of stages one and two (with eGFR >59mL/min/1.73 m2) requires estimation of kidney damage for at least three months as defined by structural or functional abnormalities of the kidney, manifested by either:Pathological abnormalities or Markers of kidney damage (including abnormalities in the composition of the blood or urine or abnormalities in imaging tests). Lab Interpretation Abnormal (test code = 34123-8) [facility] WITHOUT [id number] 20:06:00 Test Item Value Reference Range Interpretation Comments WBC (test code = 6690-2) See_Comment [A utomated message] The system [employer] generated this result transmit josiane reference range : 4.30 - 11.10 10*3/?L. The reference range was not used to interpret this result as normal/abnormal . RBC (test code = 789-8) See_Comment L [Au tomated message] The system [employer] generated this result transmit josiane reference range : 3.93 - 5.25 10* 6/?L. The reference r avelina was not used to interpret this result as normal/abnormal . HGB (test code = 718-7) 10.8 g/dL 11.6-15 L HCT (test code = 4544-3) 33.7 % 35.7-45.2 L MCH (test code = 785-6) 29.0 pg 25.9-32.8 MCV (test code = 787-2) 90.3 fL 80.6-95.5 MCHC (test code = 786-4) 32.0 g/dL 31.6-35.1 PLT (test code = 777-3) See_Comment L [Au tomated message] The system [employer] generated this result transmit josiane reference range : 166 - 358 10*3/?L. The reference range was not used to interpret this result as normal/abnormal . MPV (test code = 10.8 fL 9.5-12.9 95517-0) RDW-CV (test code = 16.7 % 12-15.5 H 788-0) RDW-SD (test code = 54.2 fL 39-49.9 H 63182-8) NRBC x10^3 (test code = <0.01 See_Comment [Au tomated message] 9313030812) The system [employer] generated this result transmit josiane reference range : 10*3/?L. The reference range was not used to interpret this result as normal/abnormal . NRBC/100 WBC (test code See_Comment [Au tomated message] = 8888096790) The system [employer] generated this result transmit josiane reference range : 0.0 - 10.0 /100 WBC s. The reference r avelina was not used to interpret this result as normal/abnormal . IPF % (test code = 0050976507) Lab Interpretation (test Abnormal code = 99594-3) [facility]APTO[facility]IN, [id number] 17:19:00 Test Item Value Reference Range Interpretation Comments HAPTOGLOB (test code = 3227499983) <6 16-200 L Lab Interpretation (test code = Abnormal 69053-3) [facility]DIFF CONSULT [id number] 16:37:00 WBC: Adequate number with absolute lymphopenia, reactive monocytes and occasional toxic neutrophils. RBC: Normocytic, normochromic anemia with polychromasia and anisopoikilocytosis including spherocytes, ovalocytes, elliptocytes, acanthocytes, rare tear drop cells and rare target cells. Platelets: Thrombocytopenia with rare large forms.[facility] METABOLIC PANEL (NA, K, CL, CO2, GLUCOSE, BUN, CREATININE, CA) 2019-12-18 11:49:00 Test Item Value Reference Range Interpretation Comments NA (test code = 144 mmol/L 135-145 9548572271) K (test code = 2.8 mmol/L 3.5-5 LL 8152010280) CL (test code = 103 mmol/L 98-108 5717573706) CO2 TOTAL (test code = 37 mmol/L 23-31 H 9268124417) AGAP (test code = 2-16 5556297358) BUN (test code = 68 mg/dL 7-23 H 0425502400) GLUCOSE (test code = 99 mg/dL 70-110 7443998627) CREATININE (test code = 1.70 mg/dL 0.5-1.04 H 3249882223) CALCIUM (test code = 8.6 mg/dL 8.6-10.6 7122575131) eGFR Calculation mL/min/1.73m2 (Non-) (test code = 9737506341) eGFR Calculation mL/min/1.73m2 () (test code = 2277442824) ELAYNE (test code = ELAYNE) Association of Glomerular Filtration Rate (GFR) and Staging of Kidney Disease* + --+ --+ ------+| GFR (mL/min/1.73 m2) ?| With Kidney Damage ?| ?Without Kidney Damage+ --------+ --------+ +| ?>90 ?| ?Stage one ?| ? Normal ?+ ---+ ---+ -------+| ?60-89 ?| ?Stage two ?| ? Decreased GFR ? + --+ --+ ------+| ?30-59 ?| ?Stage three ?| ? Stage three ? + --+ --+ ------+| ?15-29 ?| ?Stage four ? | ? Stage four ?+ ---+ ---+ -------+| ?<15 (or dialysis) ? ?| ?Stage five ? | ? Stage five ?+ ---+ ---+ -------+ *Each stage assumes the associated GFR level has been in effect for at least three months. ?Stages 1 to 5, with or without kidney disease, indicate chronic kidney disease. Notes: Determination of stages one and two (with eGFR >59mL/min/1.73 m2) requires estimation of kidney damage for at least three months as defined by structural or functional abnormalities of the kidney, manifested by either:Pathological abnormalities or Markers of kidney damage (including abnormalities in the composition of the blood or urine or abnormalities in imaging tests). Lab Interpretation Abnormal (test code = 49945-4) [facility]2020-08-25 11:42:00 Test Item Value Reference Range Interpretation Comments MAGNESIUM (test code = 1988952739) 2.4 mg/dL 1.7-2.4 Lab Interpretation (test code = Normal 35717-3) [facility]viewPROTHROMBIN TIME / [id number] 11:20:00 Test Item Value Reference Range Interpretation Comments PROTIME PATIENT (test See_Comment H [Auto mated message] code = 5964-2) The system wh ich generated this result transmitted ref erence range: 10.1 - 1 2.6 Seconds. The reference range was not used to int erpret this result as normal/abnormal . INR (test code = 6301-6) Nor mal INR <1.1; Warfarin Therap eutic range 2.0 to 3. 0 or 2.5 to 3.5, dep ending upon the indica tions. Lab Interpretation (test Abnormal code = 80842-0) [facility]CB WITH [id number] 11:14:00 Test Item Value Reference Range Interpretation Comments WBC (test code = See_Comment [Automated 6690-2) message] The sy stem which generated this result transmitted reference range : 4.30 - 11.10 10*3/?L. The reference range was not used to interpret this result as normal/abnormal . RBC (test code = See_Comment L [Automated 789-8) message] The sy stem which generated this result transmitted reference range : 3.93 - 5.25 10*6/?L. The reference range was not used to interpret this result as normal/abnormal . HGB (test code = 9.6 g/dL 11.6-15 L 718-7) HCT (test code = 29.6 % 35.7-45.2 L 4544-3) MCV (test code = 89.2 fL 80.6-95.5 787-2) MCH (test code = 28.9 pg 25.9-32.8 785-6) MCHC (test code = 32.4 g/dL 31.6-35.1 786-4) RDW-SD (test code = 53.6 fL 39-49.9 H 00405-8) RDW-CV (test code = 16.6 % 12-15.5 H 788-0) PLT (test code = See_Comment L [Automated 777-3) message] The sy stem which generated this result transmitted reference range : 166 - 358 10*3/ ?L. The reference r avelina was not used to interpret this result as normal/abnormal . MPV (test code = 10.9 fL 9.5-12.9 97350-7) NRBC/100 WBC (test See_Comment [Automat ed code = 0566024111) message] The system which generated this result transmitted reference range : 0.0 - 10.0 /100 WBCs. The refer ence range was not u sed to interpret th is result as normal/abnormal . NRBC x10^3 (test code <0.01 See_Comment [Auto mated = 3016459249) message] The s ystem which generated this result transmitted reference range : 10*3/?L. The reference range was not used to interpret this result as normal/abnormal . GRAN MAT (NEUT) % 70.0 % (test code = 770-8) IMM GRAN % (test code 0.20 % = 2691744543) LYMPH % (test code = 16.0 % 736-9) MONO % (test code = 10.4 % 5905-5) EOS % (test code = 2.6 % 713-8) BASO % (test code = 0.8 % 706-2) GRAN MAT x10^3(ANC) 3.50 10*3/uL 1.88-7.09 (test code = 4572226765) IMM GRAN x10^3 (test <0.03 0-0.06 code = 3313852070) LYMPH x10^3 (test code 0.80 10*3/uL 1.32-3.29 L = 731-0) MONO x10^3 (test code 0.52 10*3/uL 0.33-0.92 = 742-7) EOS x10^3 (test code = 0.13 10*3/uL 0.03-0.39 711-2) BASO x10^3 (test code 0.04 10*3/uL 0.01-0.07 = 704-7) Lab Interpretation Abnormal (test code = 19849-6) [facility] WITHOUT [id number] 03:50:00 Test Item Value Reference Range Interpretation Comments WBC (test code = 6690-2) See_Comment [A utomated message] The system [employer] generated this result transmit josiane reference range : 4.30 - 11.10 10*3/?L. The reference range was not used to interpret this result as normal/abnormal . RBC (test code = 789-8) See_Comment L [Au tomated message] The system [employer] generated this result transmit josiane reference range : 3.93 - 5.25 10* 6/?L. The reference r avelina was not used to interpret this result as normal/abnormal . HGB (test code = 718-7) 9.7 g/dL 11.6-15 L HCT (test code = 4544-3) 30.0 % 35.7-45.2 L MCH (test code = 785-6) 28.7 pg 25.9-32.8 MCV (test code = 787-2) 88.8 fL 80.6-95.5 MCHC (test code = 786-4) 32.3 g/dL 31.6-35.1 PLT (test code = 777-3) See_Comment L [Au tomated message] The system [employer] generated this result transmit josiane reference range : 166 - 358 10*3/?L. The reference range was not used to interpret this result as normal/abnormal . MPV (test code = 10.9 fL 9.5-12.9 50900-7) RDW-CV (test code = 16.7 % 12-15.5 H 788-0) RDW-SD (test code = 53.2 fL 39-49.9 H 31824-1) NRBC x10^3 (test code = <0.01 See_Comment [Au tomated message] 3540199574) The system [employer] generated this result transmit josiane reference range : 10*3/?L. The reference range was not used to interpret this result as normal/abnormal . NRBC/100 WBC (test code See_Comment [Au tomated message] = 5632625970) The [facility] generated this result transmit josiane reference range : 0.0 - 10.0 /100 WBC s. The reference r avelina was not used to interpret this result as normal/abnormal . IPF % (test code = 2059072683) Lab Interpretation (test Abnormal code = 47117-9) [facility]viewIRON [id number] 20:08:00 Test Item Value Reference Range Interpretation Comments IRON (test code = 0844366844) 107 ug/dL 50-160 TIBC (test code = 6426721485) 387 ug/dL 250-410 % FE SAT (test code = 7801252445) 28 % 20-50 Lab Interpretation (test code = Normal 08776-5) [facility] WITHOUT [id number] 19:25:00 Test Item Value Reference Range Interpretation Comments WBC (test code = 6690-2) See_Comment [A utomated message] The system [employer] generated this result transmit josiane reference range : 4.30 - 11.10 10*3/?L. The reference range was not used to interpret this result as normal/abnormal . RBC (test code = 789-8) See_Comment L [Au tomated message] The system [employer] generated this result transmit josiane reference range : 3.93 - 5.25 10* 6/?L. The reference r avelina was not used to interpret this result as normal/abnormal . HGB (test code = 718-7) 10.2 g/dL 11.6-15 L HCT (test code = 4544-3) 31.8 % 35.7-45.2 L MCH (test code = 785-6) 28.3 pg 25.9-32.8 MCV (test code = 787-2) 88.1 fL 80.6-95.5 MCHC (test code = 786-4) 32.1 g/dL 31.6-35.1 PLT (test code = 777-3) See_Comment L [Au tomated message] The system [employer] generated this result transmit josiane reference range : 166 - 358 10*3/?L. The reference range was not used to interpret this result as normal/abnormal . MPV (test code = 10.5 fL 9.5-12.9 80031-6) RDW-CV (test code = 16.6 % 12-15.5 H 788-0) RDW-SD (test code = 53.6 fL 39-49.9 H 42213-3) NRBC x10^3 (test code = <0.01 See_Comment [Au tomated message] 5346170610) The system [employer] generated this result transmit josiane reference range : 10*3/?L. The reference range was not used to interpret this result as normal/abnormal . NRBC/100 WBC (test code See_Comment [Au tomated message] = 5631610610) The system [employer] generated this result transmit josiane reference range : 0.0 - 10.0 /100 WBC s. The reference r avelina was not used to interpret this result as normal/abnormal . IPF % (test code = 9120631251) Lab Interpretation (test Abnormal code = 72416-5) [facility]viewVITAMIN B12, [id number] 18:10:00 Test Item Value Reference Range Interpretation Comments VIT B12 (test code = >1000 240-930 H 2920351956) ELAYNE (test code = ELAYNE) Biotin has been reported to cause a positive bias, interpret results relative to patient's use of biotin. Lab Interpretation (test Abnormal code = 04542-2) [facility]viewFOLATE2020-08-24 18:10:00 Test Item Value Reference Range Interpretation Comments FOLATE SER (test code = 2657052132) >20.0 3-20 H Lab Interpretation (test code = Abnormal 04984-4) [facility]viewFERRITIN [id number] 17:36:00 Test Item Value Reference Range Interpretation Comments FERRITIN (test code = 34.5 ng/mL 11-264 5562332822) ELAYNE (test code = ELAYNE) Biotin has been reported to cause a negative bias, interpret results relative to patient's use of biotin. Lab Interpretation (test Normal code = 93062-7) [facility]viewRETICULOCYTES [id number] 16:44:00 Test Item Value Reference Range Interpretation Comments RETIC Count Automated 2.03 % 0.51-1.9 H (test code = 8721639927) RETIC Absolute Count See_Comment [Autom ated message] (test code = 9727074238) The system which generated this result transmitted ref erence range: 0.0230 - 0.0950 10*6/?L. The reference range was not used to int erpret this result as normal/abnormal . IRF % (test code = 34.90 % 2.1-12.6 H 2376496038) RETIC-HE (test code = 33.8 pg 28.1-35.8 3772085838) Lab Interpretation (test Abnormal code = 11829-4) [facility]viewPROTHROMBIN TIME / [id number] 07:31:00 Test Item Value Reference Range Interpretation Comments PROTIME PATIENT (test See_Comment H [Auto mated message] code = 5964-2) The system wh ich generated this result transmitted ref erence range: 10.1 - 1 2.6 Seconds. The reference range was not used to int erpret this result as normal/abnormal . INR (test code = 6301-6) Nor mal INR <1.1; Warfarin Therap eutic range 2.0 to 3. 0 or 2.5 to 3.5, dep ending upon the indica tions. Lab Interpretation (test Abnormal code = 60869-2) [facility] METABOLIC PANEL (NA, K, CL, CO2, GLUCOSE, BUN, CREATININE, CA)2019-12-17 07:25:00 Test Item Value Reference Range Interpretation Comments NA (test code = 140 mmol/L 135-145 4189759735) K (test code = 3.9 mmol/L 3.5-5 2003919805) CL (test code = 102 mmol/L 98-108 9083979200) CO2 TOTAL (test code = 32 mmol/L 23-31 H 1368335989) AGAP (test code = 2-16 9853029958) BUN (test code = 102 mg/dL 7-23 H 4041941265) GLUCOSE (test code = 114 mg/dL 70-110 H 0297416970) CREATININE (test code = 1.97 mg/dL 0.5-1.04 H 4244347859) CALCIUM (test code = 9.1 mg/dL 8.6-10.6 9364192228) eGFR Calculation mL/min/1.73m2 (Non-) (test code = 1419151149) eGFR Calculation mL/min/1.73m2 () (test code = 4230332908) ELAYNE (test code = ELAYNE) Association of Glomerular Filtration Rate (GFR) and Staging of Kidney Disease* + --+ --+ ------+| GFR (mL/min/1.73 m2) ?| With Kidney Damage ?| ?Without Kidney Damage+ --------+ --------+ +| ?>90 ?| ?Stage one ?| ? Normal ?+ ---+ ---+ -------+| ?60-89 ?| ?Stage two ?| ? Decreased GFR ? + --+ --+ ------+| ?30-59 ?| ?Stage three ?| ? Stage three ? + --+ --+ ------+| ?15-29 ?| ?Stage four ? | ? Stage four ?+ ---+ ---+ -------+| ?<15 (or dialysis) ? ?| ?Stage five ? | ? Stage five ?+ ---+ ---+ -------+ *Each stage assumes the associated GFR level has been in effect for at least three months. ?Stages 1 to 5, with or without kidney disease, indicate chronic kidney disease. Notes: Determination of stages one and two (with eGFR >59mL/min/1.73 m2) requires estimation of kidney damage for at least three months as defined by structural or functional abnormalities of the kidney, manifested by either:Pathological abnormalities or Markers of kidney damage (including abnormalities in the composition of the blood or urine or abnormalities in imaging tests). Lab Interpretation Abnormal (test code = 50726-9) [facility]viewMAGN[facility]UM2020-08-24 07:25:00 Test Item Value Reference Range Interpretation Comments MAGNESIUM (test code = 2105928048) 2.7 mg/dL 1.7-2.4 H Lab Interpretation (test code = Abnormal 40943-9) [facility] WITHOUT [id number] 07:05:00 Test Item Value Reference Range Interpretation Comments WBC (test code = 6690-2) See_Comment [A utomated message] The system [employer] generated this result transmit josiane reference range : 4.30 - 11.10 10*3/?L. The reference range was not used to interpret this result as normal/abnormal . RBC (test code = 789-8) See_Comment L [Au tomated message] The system [employer] generated this result transmit josiane reference range : 3.93 - 5.25 10* 6/?L. The reference r avelina was not used to interpret this result as normal/abnormal . HGB (test code = 718-7) 10.4 g/dL 11.6-15 L HCT (test code = 4544-3) 31.6 % 35.7-45.2 L MCH (test code = 785-6) 29.1 pg 25.9-32.8 MCV (test code = 787-2) 88.3 fL 80.6-95.5 MCHC (test code = 786-4) 32.9 g/dL 31.6-35.1 PLT (test code = 777-3) See_Comment L [Au tomated message] The system [facility] generated this result transmit josiane reference range : 166 - 358 10*3/?L. The reference range was not used to interpret this result as normal/abnormal . MPV (test code = 10.9 fL 9.5-12.9 99121-7) RDW-CV (test code = 16.4 % 12-15.5 H 788-0) RDW-SD (test code = 52.8 fL 39-49.9 H 11552-1) NRBC x10^3 (test code = <0.01 See_Comment [Au tomated message] 7870697829) The system [employer] generated this result transmit josiane reference range : 10*3/?L. The reference range was not used to interpret this result as normal/abnormal . NRBC/100 WBC (test code See_Comment [Au tomated message] = 3416489626) The system [facility] generated this result transmit josiane reference range : 0.0 - 10.0 /100 WBC s. The reference r avelina was not used to interpret this result as normal/abnormal . IPF % (test code = 5659372162) Lab Interpretation (test Abnormal code = 48240-9) [facility]viewCT ABDOMEN PELVIS WO [id number] 02:43:05 1. ?Right upper renal pole 5.4 cm exophytic heterogeneous mass. Limitedevaluation without IV contrast however, likely represents an RCC. Furtherevaluation with multiphasic MRI renal protocol is recommended. 2. ?Right- sided pleural effusion. 3. 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 4. ?Left adrenal 1.3 cm hypoattenuating nodule, further evaluation withmultiphasic CT or MRI or PET/CT ?recommended. Preliminary Report Dictated by Resident: Hermann Marquez ?MD. Praful, have reviewed this study and agree withthe above report.EXAM: CT ABDOMEN/PELVIS WITHOUT CONTRAST HISTORY: ? 89 years-old Female presenting with Abd pain, acute, generalizedNausea, vomiting COMPARISON: None. DOSE: 262 mGycm TECHNIQUE AND FINDINGS: Contiguous axial imaging from the level of the lungbases through the proximal thighs was performed without the intravenousadministration of contrast. Coronal and sagittal reconstructions wereobtained. ?Auto mA and/or iterative reconstruction were used to reduceradiation dose. FINDINGS: LOWER THORAX: Bilateral noncalcified subcentimeter pulmonary nodules asfollows:* ?Left lower lung pleural-based 6 cm nodule (2:5)* ?Right lower lungnoncalcified 4 mm nodule (2:6)* ?Right lower lung noncalcified nodule (2:9) Small to moderate volume right-sided pleural effusion. Four-chamber cardiomegaly. Three-vessel severe carotid arterialcalcifications. LIVER: No focal hepatic lesions within the limits of this unenhanced CT.Normal liver contour. GALLBLADDER AND BILIARY TREE: No biliary ductal dilation. Punctatehyperattenuating focus within the gallbladder lumen, may representcholelithiasis. No gallbladder wall thickening. SPLEEN: No splenomegaly. PANCREAS: No ductal dilation or masses within the limits of this unenhancedCT. ADRENAL GLANDS: Left adrenal 1.3 cm hyperattenuating nodule measuring 43 HU(2:47) KIDNEYS: Right upper renal pole 5.4x 4.3 cm exophytic heterogeneouslyattenuating structure, limited evaluation without IV contrast however,likely represents renal cell carcinoma. An adjacent 3.6 cm hypoattenuatingcystic structure measures simple fluid density and likely represents asimple cyst. Left kidney demonstrates a small subcentimeter exophytic hyperattenuatingstructure, too small to characterize and likely represents a proteinaceousor hemorrhagic cyst. PERITONEUM AND RETROPERITONEUM: No free air or fluid. LYMPH NODES: No lymphadenopathy. GI TRACT: No bowel dilation or abnormal wall thickening. The appendix isnot visualized. PE LVIS/BLADDER: The urinary bladder is unremarkable for the degree ofdistention. Prior hysterectomy. VESSELS: Severe calcified atherosclerotic disease of the abdominal aortaand bilateral iliacs. Dilated tortuous right gonadal vein (2:82) BONES AND SOFT TISSUES: Bilateral iliac and femoral lytic lesions.Moderatesevere multilevel degenerative changes of the lumbar spine. ReverseS-shaped curvature of thethoracolumbar spine. [facility], Radiant Results Inft User - 12/16/2019 9:44 PM CDTEXAM: CT ABDOMEN/PELVIS WITHOUT CONTRASTHISTORY: 89 years-old Female presenting with Abd pain, acute, generalizedNausea, vomiting COMPARISON: None.DOSE: 262 mGycmTECHNIQUE AND FINDINGS: Contiguous axial imaging from the level of the lungbases through the proximal thighs was performed without the intravenousadministration of contrast. Coronal and sagittal reconstructions wereobtained. Auto mA and/or iterative reconstruction were used to reduceradiation dose.FINDINGS:LOWER THORAX: Bilateral noncalcified subcentimeter pulmonary nodules asfollows:* Left lower lung pleural-based 6 cm nodule (2:5)* Right lower lung noncalcified 4 mm nodule (2:6)* Right lower lung noncalcified nodule (2:9)Small to moderate volume right-sided pleural effusion. Four-chamber cardiomegaly. Three-vessel severe carotid arterialcalcifications.LIVER: No focal hepatic lesions within the limits of this unenhanced CT.Normal liver contour.GALLBLADDER AND BILIARY TREE: No biliary ductal dilation. Punctatehyperattenuating focus within the gallbladder lumen, may representcholelithiasis. No gallbladder wall thickening.SPLEEN: No splenomegaly.PANCREAS: No ductal dilation or masses within the limits of this unenhancedCT.ADRENAL GLANDS: Left adrenal 1.3 cm hyperattenuating nodule measuring 43 HU(2:47)KIDNEYS: Right upper renal pole 5.4 x 4.3 cm exophytic heterogeneouslyattenuating structure, limited evaluation without IV contrast however,likely represents renal cell carcinoma. An adjacent 3.6 cm hypoattenuatingcystic structure measures simple fluiddensity and likely represents asimple cyst.Left kidney demonstrates a small subcentimeter exophytic hyperattenuatingstructure, too small to characterize and likely represents a proteinaceousor hemorrhagic cyst.PERITONEUM AND RETROPERITONEUM: No free air or fluid.LYMPH NODES: No lymphadenopathy.GI TRACT: No bowel dilation or abnormal wall thickening. The appendix isnot visualized.PELVIS/BLADDER: The urinary bladder is unremarkable for the degree ofdistention. Prior hysterectomy.VESSELS: Severe calcified atherosclerotic disease of the abdominal aortaand bilateral iliacs. Dilated tortuous right gonadal vein (2:82)BONES AND SOFT TISSUES: Bilateral iliac and femoral lytic lesions. Moderatesevere multilevel degenerative changes of the lumbar spine. ReverseS-shaped curvature of the thoracolumbar spine.IMPRESSION1. Right upper renal pole 5.4 cm exophytic heterogeneous mass. Limitedevaluation without IVcontrast however, likely represents an RCC. Furtherevaluation with multiphasic MRI renal protocol is recommended.2. Right-sided pleural effusion.3. Multiple bilateral iliac and femoral lytic lesions,concerning formetastases.4. Left adrenal 1.3 cm hypoattenuating nodule, further evaluation withmultiphasic CT or MRI or PET/CT recommended.Preliminary Report Dictated by Resident: Hermann Kingston MD., have reviewed this study and agree withthe above report. [facility]ID NOW RAPID TESTING)2019-12-17 00:43:00 Test Item Value Reference Range Interpretation Comments SARS-CoV-2 Rapid ID NOW Not Detected Not Detected (test code = 70129-3) ELAYNE (test code = ELAYNE) ID NOW COVID-19 Assay is an isothermal nucleic acid amplification test intended for the qualitative detection of nucleic acid from SARS-CoV-2 viral RNA in nasopharyngeal ([employer]ER) specimens. It is used under Emergency Use Authorization (EUA) by FDA. The limit of detection (LOD) of the assay is 125 Genome Equivalents/mL. A positive result is indicative of the presence of SARS-CoV-2 RNA. ?Clinical correlation with patient history and other diagnostic information is necessary to determine patient infection status. A negative (Not Detected) result does not preclude SARS-CoV-2 infection. In patients with clinical symptoms and other tests that are consistent with SARS-CoV-2 infection, negative results should be treated as presumptive negative and a new specimen should be tested with alternative PCR molecular test. Invalid: Please collect a new specimen for repeat patient testing if clinically indicated. Lab Interpretation Normal (test code = 26324-0) [facility] - Type and Screen expires at midnight on the 3rd day after it was drawn. A current Type and Screen is required when RBCs are requested. For all other blood products, a Type and Screen performed during the current hospitalization i...2019-12-17 00:27:02 Test Item Value Reference Range Interpretation Comments ABO & RH (test code O Negative Performe d at [facility] = 20) Laboratory Serv [facility] [address] [place], [place] [id number] Free: [phone] A No. [id number] IAT (test code = Negative Performed a t [facility] 1185) Laboratory Serv [facility] [address] [place] [phone] Free: [phone] A No. [id number] [facility] (NA, K, CL, CO2, GLUCOSE, BUN, CREATININE, CA)2019-12-17 00:10:00 Test Item Value Reference Range Interpretation Comments NA (test code = 138 mmol/L 135-145 6473838309) K (test code = 4.1 mmol/L 3.5-5 8490235406) CL (test code = 100 mmol/L 98-108 4762647675) CO2 TOTAL (test code = 28 mmol/L 23-31 8508779123) AGAP (test code = 2-16 6658358574) BUN (test code = 102 mg/dL 7-23 H 7354047111) GLUCOSE (test code = 105 mg/dL 70-110 3420642845) CREATININE (test code = 2.07 mg/dL 0.5-1.04 H 9550696123) CALCIUM (test code = 9.3 mg/dL 8.6-10.6 1864929072) eGFR Calculation mL/min/1.73m2 (Non-) (test code = 4440581489) eGFR Calculation mL/min/1.73m2 () (test code = 1116608140) ELAYNE (test code = ELAYNE) Association of Glomerular Filtration Rate (GFR) and Staging of Kidney Disease* + --+ --+ ------+| GFR (mL/min/1.73 m2) ?| With Kidney Damage ?| ?Without Kidney Damage+ --------+ --------+ +| ?>90 ?| ?Stage one ?| ? Normal ?+ ---+ ---+ -------+| ?60-89 ?| ?Stage two ?| ? Decreased GFR ? + --+ --+ ------+| ?30-59 ?| ?Stage three ?| ? Stage three ? + --+ --+ ------+| ?15-29 ?| ?Stage four ? | ? Stage four ?+ ---+ ---+ -------+| ?<15 (or dialysis) ? ?| ?Stage five ? | ? Stage five ?+ ---+ ---+ -------+ *Each stage assumes the associated GFR level has been in effect for at least three months. ?Stages 1 to 5, with or without kidney disease, indicate chronic kidney disease. Notes: Determination of stages one and two (with eGFR >59mL/min/1.73 m2) requires estimation of kidney damage for at least three months as defined by structural or functional abnormalities of the kidney, manifested by either:Pathological abnormalities or Markers of kidney damage (including abnormalities in the composition of the blood or urine or abnormalities in imaging tests). Lab Interpretation Abnormal (test code = 05725-5) [facility] (ALB, T.PRO, BILI T, BU/BC, ALT, AST, ALK PHOS)2019-12-17 00:10:00 Test Item Value Reference Range Interpretation Comments TOTAL BILI (test code = 6767765589) 1.8 mg/dL 0.1-1.1 H BILI UNCON (test code = 8405721401) 1.6 mg/dL 0.1-1.1 H BILI CONJ (test code = 5026962925) 0.0 mg/dL 0-0.3 T PROTEIN (test code = 4121011414) 7.2 g/dL 6.3-8.2 ALBUMIN (test code = 1280671574) 4.4 g/dL 3.5-5 ALK PHOS (test code = 6784604866) 96 U/L 34-122 ALTv (test code = 1742-6) 31 U/L 5-35 AST(SGOT) (test code = 4191571892) 53 U/L 13-40 H Lab Interpretation (test code = Abnormal 15784-7) [facility] [id number] 00:10:00 Test Item Value Reference Range Interpretation Comments LIPASE (test code = 1946360090) 286 U/L 0-220 H Lab Interpretation (test code = Abnormal 59954-4) [facility]viewProthrombin Time (PT) / [id number] 00:08:00 Test Item Value Reference Range Interpretation Comments PROTIME PATIENT (test See_Comment H [Auto mated message] code = 5964-2) The system En[employer] generated this result transmitted ref erence range: 12.0 - 1 4.7 Seconds. The reference range was not used to int erpret this result as normal/abnormal . INR (test code = 6301-6) Nor mal INR <1.1; Warfarin Therap eutic range 2.0 to 3. 0 or 2.5 to 3.5, dep ending upon the indica tions. Lab Interpretation (test Abnormal code = 08289-6) [facility]viewUrinalysis2020-08-24 00:03:00 Test Item Value Reference Range Interpretation Comments APPEARANCE (test code = Clear Clear 9677537991) COLOR (test code = Straw Yellow A 3375700875) PH (test code = 4.8-8.0 1875717457) SP GRAVITY (test code = 1.003-1.030 5399999103) GLU U QUAL (test code = Normal Normal 3528638516) BLOOD (test code = Negative Negative 3719987612) KETONES (test code = Negative Negative 4156871526) PROTEIN (test code = Negative Negative 2887-8) UROBILIN (test code = Normal Normal 9825367832) BILIRUBIN (test code = Negative Negative 3916134681) NITRITE (test code = Negative Negative 5338007481) LEUK LUZMARIA (test code = Negative Negative 4004837100) RBC/HPF (test code = See_Comment [Autom ated message] 3884106093) The system [employer] generated this result transmitted ref erence range: 0 - 3 HP F. The reference range was not used to int erpret this result as normal/abnormal . WBC/HPF (test code = See_Comment [Autom ated message] 7946817446) The system [employer] h generated this result transmitted ref erence range: 0 - 5 HP F. The reference range was not used to int erpret this result as normal/abnormal . BACTERIA (test code = Few Negative A 4741051481) SQ EPITH (test code = <1 HPF 2282045469) Lab Interpretation (test Abnormal code = 35157-3) [facility] with [id number] 23:55:00 Test Item Value Reference Range Interpretation Comments WBC (test code = See_Comment [Automated 6690-2) message] The sy stem which generated this result transmitted reference range : 4.30 - 11.10 10*3/?L. The reference range was not used to interpret this result as normal/abnormal . RBC (test code = See_Comment [Automated 789-8) message] The sy stem which generated this result transmitted reference range : 3.93 - 5.25 10*6/?L. The reference range was not used to interpret this result as normal/abnormal . HGB (test code = 11.4 g/dL 11.6-15 L 718-7) HCT (test code = 34.0 % 35.7-45.2 L 4544-3) MCV (test code = 86.5 fL 80.6-95.5 787-2) MCH (test code = 29.0 pg 25.9-32.8 785-6) MCHC (test code = 33.5 g/dL 31.6-35.1 786-4) RDW-SD (test code = 50.9 fL 39-49.9 H 13330-3) RDW-CV (test code = 16.4 % 12-15.5 H 788-0) PLT (test code = See_Comment L [Automated 777-3) message] The sy stem which generated this result transmitted reference range : 166 - 358 10*3/ ?L. The reference r avelina was not used to interpret this result as normal/abnormal . MPV (test code = 11.8 fL 9.5-12.9 51543-8) NRBC/100 WBC (test See_Comment [Automat ed code = 8172075366) message] The system which generated this result transmitted reference range : 0.0 - 10.0 /100 WBCs. The refer ence range was not u sed to interpret th is result as normal/abnormal . NRBC x10^3 (test code <0.01 See_Comment [Auto mated = 9612364481) message] The s ystem which generated this result transmitted reference range : 10*3/?L. The reference range was not used to interpret this result as normal/abnormal . GRAN MAT (NEUT) % 70.1 % (test code = 770-8) IMM GRAN % (test code 0.30 % = 2232096876) LYMPH % (test code = 18.5 % 736-9) MONO % (test code = 10.6 % 5905-5) EOS % (test code = 0.2 % 713-8) BASO % (test code = 0.3 % 706-2) GRAN MAT x10^3(ANC) 6.15 10*3/uL 1.88-7.09 (test code = 0568466776) IMM GRAN x10^3 (test 0.03 10*3/uL 0-0.06 code = 2704695976) LYMPH x10^3 (test code 1.62 10*3/uL 1.32-3.29 = 731-0) MONO x10^3 (test code 0.93 10*3/uL 0.33-0.92 H = 742-7) EOS x10^3 (test code = <0.03 0.03-0.39 L 711-2) BASO x10^3 (test code 0.03 10*3/uL 0.01-0.07 = 704-7) Lab Interpretation Abnormal (test code = 36905-7) [facility]"
[2021-03-18] MEDS ORDERED: NA CHLORIDE 0.9% 1,000 ML ONE ×2 (15:29→16:32)
[2021-03-18 15:39] LABS: Absolute Lymphocytes (CBC) 0.5 K/uL (0.7-4.9); Basophils % 0.1 % (0-1.3); Hematocrit 37.4 % (36.0-45.0); Lymphocytes % 1.9 % (15.3-44.8); MPV 7.9 fL (7.6-11.3); RBC Red Blood Cell Count 3.98 M/uL (3.86-4.86)
[2021-03-18 15:42] LABS: Protime INR 1.89
[2021-03-18 15:44] LABS: Urine Blood Negative (Negative); Urine Glucose Negative (Negative); Urine Protein Negative (Negative); Urine Specific Gravity 1.015 (1.005-1.030)
[2021-03-18 16:01] LABS: Albumin 2.4 g/dL (3.4-5.0); Bilirubin Direct 1.1 mg/dL (0-0.2); Bilirubin Total 1.9 mg/dL (0.2-1.0); Protein, Total 6.7 g/dL (6.4-8.2); Troponin (Emerg Dept Use Only) 1.92 ng/mL (0.0-0.045)
[2021-03-18 16:03] LABS: Potassium 5.7 mmol/L (3.5-5.1)
--- NOTE | 2021-03-18 16:06 | EDPHYS ---
Physician Documentation [facility] Name: Zaida Yates Age: 89 yrs Sex: Female : 1930 Arrival Date: 03/18/2021 Time: 15:15 Bed 7 Private MD: ED Physician Adriel Izaguirre HPI: 03/18 16:00 This 89 yrs old Female presents to ER via EMS with complaints of ill feeling. rn 16:00 Patient reports woke up this morning just not feeling well, trouble waking up rn throughout the day with malaise and fatigue. Denies any fall or trauma. Reports noticing right lower extremity redness and pain this morning. Also reports mild cough. Denies any chest pain/vomiting/diarrhea/abdominal pain.. Onset: The symptoms/episode began/occurred this morning. Severity of symptoms: At their worst the symptoms were moderate in the emergency department the symptoms are unchanged. The patient has not experienced similar symptoms in the past. The patient has not recently seen a physician. Historical: - Allergies: 15:18 Clindamycin; tw2 15:18 Sulfa (Sulfonamide Antibiotics); tw2 15:18 Codeine; tw2 - Home Meds: 15:18 Simvastatin + Ezetomibe 10-20 mg 1 tab daily [Active]; potassium chloride 20 mEq Oral tw2 cpER 2 tabs once daily [Active]; metoprolol tartrate 25 mg Oral tab 0.5 tab 2 times per day [Active]; levothyroxine 75 mcg tab 1 tab once daily [Active]; furosemide 40 mg Oral tab 1 tab 3 times per day [Active]; Eliquis 5 mg Oral tab 1 tab 2 times per day [Active]; allopurinol 100 mg Oral tab 1 tab 2 times per day [Active]; - PMHx: 15:18 Atrial Fib; Diabetes - NIDDM; Hypertension; Hypothyroidism; tw2 - Immunization history:: Adult Immunizations. - Social history:: Smoking status: . - Family history:: not pertinent. - Hospitalizations: : No recent hospitalization is reported. ROS: 16:00 Constitutional: Negative for fever, chills, and weight loss, Eyes: Negative for injury, rn pain, redness, and discharge, ENT: Negative for injury, pain, and discharge, Neck: Negative for injury, pain, and swelling, Cardiovascular: Negative for chest pain, palpitations, and edema, Respiratory: Positive for cough Abdomen/GI: Negative for abdominal pain, nausea, vomiting, diarrhea, and constipation, Back: Negative for injury and pain, : Negative for injury, bleeding, discharge, and swelling, MS/Extremity: Negative for injury and deformity, Skin: Positive for discoloration and rash to right lower extremity Neuro: Negative for headache, numbness, tingling, and seizure. Exam: 16:01 Constitutional: This is a well developed, well nourished patient who is awake, alert, rn and in no acute distress. Head/Face: Normocephalic, atraumatic. Eyes: Periorbital areas with no swelling, redness, or edema. Cardiovascular: Regular rate, irregular rhythm. No pulse deficits. Respiratory: Speaking full sentences, unlabored. No increased work of breathing, no retractions or nasal flaring. Abdomen/GI: Soft, non-tender, no distention or pulsatile masses Skin: Warm, dry, right inner thigh and across knee with erythema/purpuric rash with tenderness, no open wounds, no fluctuance MS/ Extremity: Pulses equal, no cyanosis. Neurovascular intact. Full, normal range of motion. Equal circumference. Neuro: Awake and alert, GCS 15, oriented to person, place, time, and situation. Cranial nerves II-XII grossly intact. Motor strength 4/5 in all extremities. Sensory grossly intact. Vital Signs: 15:15 BP 90 / 53; Pulse 85; Resp 22; Temp 98.2(TE); Pulse Ox 95% on R/A; Weight 58.97 kg (R); tw2 Height 5 ft. 3 in. (160.02 cm); Pain 0/10; 16:03 BP 98 / 64; Pulse 71; Resp 17; Pulse Ox 100% ; jh6 17:36 BP 94 / 51; Pulse 82; Resp 17; Pulse Ox 95% on R/A; tw2 15:15 Body Mass Index 23.03 (58.97 kg, 160.02 cm) tw2 MDM: 15:16 Patient medically screened. rn 16:01 Differential Diagnosis altered mental status, sepsis, UTI, cellulitis, acute kidney rn failure. Data reviewed: vital signs, nurses notes, lab test result(s), radiologic studies, plain films, and as a result, I will admit patient. Counseling: I had a detailed discussion with the patient and/or guardian regarding: the historical points, exam findings, and any diagnostic results supporting the discharge/admit diagnosis, lab results, radiology results, the need for further work-up and treatment in the hospital. Response to treatment: the patient's symptoms have mildly improved after treatment, and as a result, I will admit patient. Admission orders: after a detailed discussion of the patient's condition and case, the admit orders are written by me. ED course: Patient with UTI, Rocephin ordered. Questionable cellulitis of the right lower extremity. Covid pending. Blood work shows elevated lactate as well as abnormal creatinine, consistent with acute kidney injury. Admitted to Dr. Mccarthy for further evaluation and treatment.. 03/18 15:22 Order name: Basic Metabolic Panel 03/18 15:22 Order name: Blood Culture Adult (2) 03/18 15:22 Order name: CBC with Diff 03/18 15:22 Order name: LFT's; Complete Time: 16:06 03/18 15:22 Order name: Lactate; Complete Time: 16:06 03/18 15:22 Order name: Lipase; Complete Time: 16:06 03/18 15:22 Order name: Procalcitonin 03/18 15:22 Order name: Protime (+inr); Complete Time: 16:06 03/18 15:22 Order name: Ptt, Activated; Complete Time: 16:06 03/18 15:22 Order name: Troponin (emerg Dept Use Only); Complete Time: 16:06 03/18 15:22 Order name: Urine Culture 03/18 15:22 Order name: Urine Microscopic Only 03/18 15:22 Order name: SARS-COV-2 RT PCR (Document "Date of Onset" if Symptomatic); Complete Time: rn 16:41 03/18 15:23 Order name: Basic Metabolic Panel; Complete Time: 16:06 EDNC 03/18 15:22 Order name: Chest Single View XRAY; Complete Time: 16:41 03/18 15:22 Order name: Accucheck; Complete Time: 15:32 03/18 15:22 Order name: Cardiac monitoring; Complete Time: 15:32 03/18 15:22 Order name: IV Saline Lock - Large Bore; Complete Time: 15:32 rn 03/18 15:22 Order name: Labs collected and sent; Complete Time: 15:32 rn 03/18 15:22 Order name: O2 Per Protocol rn 03/18 15:22 Order name: O2 Sat Monitoring; Complete Time: 15:31 rn 03/18 15:22 Order name: Extremity Venous Uni Ltd US; Complete Time: 16:41 rn 03/18 15:39 Order name: Glucose, Ancillary Testing; Complete Time: 15:53 EDMS 03/18 15:44 Order name: Urine Dipstick-Ancillary; Complete Time: 15:53 EDNC 03/18 15:44 Order name: Straight Cath - Urine; Complete Time: 15:44 tw2 Administered Medications: 15:41 Drug: NS 0.9% 1000 ml Route: IV; Rate: 1000 ml; Site: right antecubital; 6 16:13 Drug: Rocephin (cefTRIAXone) 1 grams Route: IV; Rate: calculated rate; Site: right [facility] antecubital; 16:44 CANCELLED (Duplicate Order; already on eliquiss): Lovenox (enoxaparin) 1 mg/kg Sub-Q rn once 17:51 Drug: NS 0.9% 1000 ml Route: IV; Rate: 125 ml/hr; Site: right antecubital; tw2 Disposition Summary: 03/18/21 16:05 Hospitalization Ordered Hospitalization Status: Inpatient Admission rn Provider: Adam Mccarthy rn Location: Telemetry/MedSurg (Inpatient) rn Condition: Stable rn Problem: new rn Symptoms: have improved rn Bed/Room Type: Standard rn Room Assignment: rn Diagnosis - UTI/ Urinary tract infection, site not specified rn - Acute kidney failure, unspecified rn - Cellulitis of right lower limb rn - Hyperkalemia rn - Weakness rn - Acute embolism and thrombosis of unspecified deep veins of right lower extremity rn quality Instructions: - Discharge Summary Sheet tw2 Forms: - Medication Reconciliation Form rn - SBAR form tw2 Signatures: Dispatcher [employer] Adriel Sands MD MD rn Wise, Tara, RN RN 2 Shabnam Parada RN RN [facility] Corrections: (The following items were deleted from the chart) 16:02 16:00 Constitutional: Negative for fever, chills, and weight loss, rn rn 16:08 16:01 Constitutional: This is a well developed, well nourished patient who is awake, rn alert, and in no acute distress. Head/Face: Normocephalic, atraumatic. Eyes: Periorbital areas with no swelling, redness, or edema. Cardiovascular: Regular rate, regular rhythm. No pulse deficits. Respiratory: Speaking full sentences, unlabored. No increased work of breathing, no retractions or nasal flaring. Abdomen/GI: Soft, non-tender, no distention or pulsatile masses Skin: Warm, dry, right inner thigh and across knee with erythema/purpuric rash with tenderness, no open wounds, no fluctuance MS/ Extremity: Pulses equal, no cyanosis. Neurovascular intact. Full, normal range of motion. Equal circumference. Neuro: Awake and alert, GCS 15, oriented to person, place, time, and situation. Cranial nerves II-XII grossly intact. Motor strength 4/5 in all extremities. Sensory grossly intact. rn 16:44 16:41 Lovenox (enoxaparin) 1 mg/kg Sub-Q once ordered. rn rn
--- NOTE | 2021-03-18 16:06 | ER ---
Nurse's Notes [facility] Name: Zaida Yates Age: 89 yrs Sex: Female : 1930 Arrival Date: 03/18/2021 Time: 15:15 Bed 7 Private MD: Diagnosis: UTI/ Urinary tract infection, site not specified;Acute kidney failure, unspecified;Cellulitis of right lower limb;Hyperkalemia;Weakness;Acute embolism and thrombosis of unspecified deep veins of right lower extremity Presentation: 03/18 15:15 Chief complaint: EMS states: pt from home states she woke up at 2 am not feeling right. tw2 went back to sleep. daughter same over and states she wasn't acting right but that is all the information we could get from here. daughter reported new today redness to inner RIGHT thigh. BGL 103 mg/dL. Coronavirus screen: At this time, the client does not indicate any symptoms associated with coronavirus-19. Ebola Screen: Patient denies travel to an Ebola-affected area in the 21 days before illness onset. Initial Sepsis Screen: Does the patient meet any 2 criteria? No. Patient's initial sepsis screen is negative. Does the patient have a suspected source of infection? No. Patient's initial sepsis screen is negative. Risk Assessment: Do you want to hurt yourself or someone else? Patient reports no desire to harm self or others. Note provider at bedside at this time. Onset of symptoms was March 18, 2021. 15:15 Method Of Arrival: [facility] tw2 15:15 Acuity: WILMAN 2 tw2 15:15 Care prior to arrival: Medication(s) given: Normal saline infusion, 100 ml. tw2 Triage Assessment: 15:19 General: Appears in no apparent distress. Behavior is calm, cooperative, appropriate tw2 for age. Pain: Denies pain. Historical: - Allergies: 15:18 Clindamycin; tw2 15:18 Sulfa (Sulfonamide Antibiotics); tw2 15:18 Codeine; tw2 - Home Meds: 15:18 Simvastatin + Ezetomibe 10-20 mg 1 tab daily [Active]; potassium chloride 20 mEq Oral tw2 cpER 2 tabs once daily [Active]; metoprolol tartrate 25 mg Oral tab 0.5 tab 2 times per day [Active]; levothyroxine 75 mcg tab 1 tab once daily [Active]; furosemide 40 mg Oral tab 1 tab 3 times per day [Active]; Eliquis 5 mg Oral tab 1 tab 2 times per day [Active]; allopurinol 100 mg Oral tab 1 tab 2 times per day [Active]; - PMHx: 15:18 Atrial Fib; Diabetes - NIDDM; Hypertension; Hypothyroidism; tw2 - Immunization history:: Adult Immunizations. - Social history:: Smoking status: . - Family history:: not pertinent. - Hospitalizations: : No recent hospitalization is reported. Screenin:20 Abuse screen: Denies threats or abuse. Nutritional screening: No deficits noted. tw2 Tuberculosis screening: No symptoms or risk factors identified. Fall Risk Secondary diagnosis (15 points) impaired mobility. Assessment: 16:01 General: Appears in no apparent distress. comfortable, well groomed, Behavior is calm, jh6 cooperative. Pain: Complains of pain in medial aspect of right thigh Pain currently is 4 out of 10 on a pain scale. Quality of pain is described as aching, Pain began suddenly, this am Is continuous, Aggravated by increased activity, repositioning, Noted to be quiet/stoic. Neuro: No deficits noted. Vital Signs: 15:15 BP 90 / 53; Pulse 85; Resp 22; Temp 98.2(TE); Pulse Ox 95% on R/A; Weight 58.97 kg (R); tw2 Height 5 ft. 3 in. (160.02 cm); Pain 0/10; 16:03 BP 98 / 64; Pulse 71; Resp 17; Pulse Ox 100% ; jh6 17:36 BP 94 / 51; Pulse 82; Resp 17; Pulse Ox 95% on R/A; tw2 15:15 Body Mass Index 23.03 (58.97 kg, 160.02 cm) tw2 ED Course: 15:15 Patient arrived in ED. tw2 15:15 Bed in low position. Call light in reach. Side rails up X2. telemetry monitor on. Pulse tw2 ox on. NIBP on. Warm blanket given. 15:16 Adriel Izaguirre MD is Attending Physician. rn 15:18 Triage completed. tw2 15:19 Arm band placed on. tw2 15:41 Shabnam Parada, KRUNAL is Primary Nurse. [facility] 15:44 Straight cath inserted, using sterile technique, 18 Fr. by KRUNAL Hannah. 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 Patient tolerated well. 15:44 Maintain EMS IV. Dressing intact. Good blood return noted. Site clean \T\ dry. Gauge \T\ tw 2 site: 20 g. 16:05 Adam Mccarthy DO is Hospitalizing Provider. rn 16:16 Extremity Venous Uni Ltd US In Process Unspecified. EDMS 16:17 Chest Single View XRAY In Process Unspecified. EDMS 17:58 No provider procedures requiring assistance completed. Patient admitted, IV remains in tw2 place. Administered Medications: 15:41 Drug: NS 0.9% 1000 ml Route: IV; Rate: 1000 ml; Site: right antecubital; 6 16:13 Drug: Rocephin (cefTRIAXone) 1 grams Route: IV; Rate: calculated rate; Site: right [facility] antecubital; 16:44 CANCELLED (Duplicate Order; already on eliquiss): Lovenox (enoxaparin) 1 mg/kg Sub-Q rn once 17:51 Drug: NS 0.9% 1000 ml Route: IV; Rate: 125 ml/hr; Site: right antecubital; tw2 Outcome: 16:05 Decision to Hospitalize by Provider. rn 17:58 Admitted to ICU accompanied by nurse, via stretcher, Report called to KRUNAL Toth tw2 17:58 Condition: stable 17:58 Instructed on the need for admit. 18:08 Patient left the ED. tw2 Signatures: Dispatcher [employer] EDMS Adriel Izaguirre MD MD rn Wise, Tara, RN RN 2 Shabnam Parada RN RN [facility] Corrections: (The following items were deleted from the chart) 15:18 15:15 BP 90 / 53; Pulse 85bpm; Resp 17bpm; Pulse Ox 95% RA; Temp 98.2F Temporal; 58.97 tw2 kg Reported; Height 5 ft. 3 in.; BMI: 23.0; Pain 0/10; tw2 15:20 15:15 Chief complaint: EMS states: pt from home states she woke up at 2 am not feeling tw2 right. went back to sleep. daughter same over and states she wasn't acting right but that is all the information we could get from here. daughter reported new today redness to inner RIGHT thigh. BGL 103 mg/dL tw2
[2021-03-18] MEDS ORDERED: CEFTRIAXONE 1000 MG/VIAL ONE (16:07)
[2021-03-18] MEDS ORDERED: NA CHLORIDE 0.9% 50 ML ONE (16:08)
--- NOTE | 2021-03-18 16:28 | RAD REPORT ---
EXAM DESCRIPTION: RAD - Chest Single View - 03/18/2021 4:17 pm CLINICAL HISTORY: COUGH Chest pain. COMPARISON: CHEST SINGLE VIEW dated 03/05/2013; CHEST PA AND LAT 2 VIEW dated 09/06/2011; CHEST PA AN D LAT 2 VIEW dated 08/10/2011; CHEST SINGLE VIEW dated 03/04/2011 FINDINGS: Portable technique limits examination quality. Mild bilateral interstitial lung opacities. This may represent pulmonary edema or viral infection. Th e heart is moderately enlarged. No displaced fractures.
--- NOTE | 2021-03-18 16:32 | RAD REPORT ---
EXAM DESCRIPTION: US - Extremity Venous Uni Ltd - 03/18/2021 4:16 pm CLINICAL HISTORY: Pain;Swelling Leg swelling and edema. COMPARISON: No comparisons FINDINGS: Right lower extremity venous system was interrogated with Doppler technique. The proximal and mid femoral vein shows noncompressibility which may represent DVT. Elsewhere, no DVT is seen. IMPRESSION: The proximal and mid right femoral vein were not compressible suggesting DVT.
--- NOTE | 2021-03-18 16:45 | P.HP ---
Patient History Date of Service: 03/18/21 Primary Care Provider: Dr. Goodman; Cardiology-Dr. Barnes Reason for admission: Fatigue History of Present Illness: 89-year-old female with history of chronic renal disease, atrial fibrillation on chronic anticoagulation therapy, hypertension, hypothyroidism. Patient presented with increased fatigue, chills. Patient also found to have erythema, pain to the right inner thigh. Cellulitis was noted. She reports this started about 2 days ago. This is gotten worse. She denies any chest pain, shortness of breath. She denies any polydipsia or polyuria. No dysuria noted. Patient came to the ER for further evaluation. In the ER patient was evaluated. Initial blood pressure around 90/56. Patient given IV fluid bolus. White count elevated at 25. Hemoglobin 12. Platelet count 210. Sodium 138, potassium 5.7. BUN of 91, creatinine 3.8 with a GFR of 11. Glucose 85. Lactic acid 3.1. Troponin I 1.92. Venous Doppler shows no DVT. Patient admitted for further evaluation and treatment. Patient to get fluid bolus in the ER. Rocephin given in the ER. Allergies clindamycin Adverse Reaction (Mild, Verified 03/05/13 21:48) Vomiting codeine Adverse Reaction (Mild, Verified 03/05/13 21:48) Vomiting Sulfa (Sulfonamide Antibiotics) Adverse Reaction (Mild, Verified 03/05/13 21:48) Vomiting Home Medications: Dabigatran Etexilate Mesylate [Pradaxa] 150 mg PO BID 03/05/13 Ezetimibe/Simvastatin [Vytorin 10-20 mg Tablet] 1 each PO DAILY 03/05/13 Metoprolol Tartrate [Lopressor*] 50 mg PO BID 03/05/13 Pantoprazole [Protonix Tab*] 40 mg PO DAILY 03/05/13 Dabigatran Etexilate Mesylate [Pradaxa*] 150 mg PO BID #0 cap 03/07/13 Ezetimibe [Zetia*] 10 mg PO DAILY #0 tab 03/07/13 Furosemide [Lasix*] 20 mg PO DAILY #30 03/07/13 Levothyroxine [Synthroid*] 0.1 mg PO DAILY #0 tab 03/07/13 Metoprolol Tartrate [Lopressor*] 50 mg PO BID #0 tab 03/07/13 Potassium Efferv [K-Lyte*] 25 meq PO BID #0 tab 03/07/13 Simvastatin [Zocor*] 20 mg PO DAILY #0 tablet 03/07/13 - Past Medical/Surgical History Diabetic: No -: Atrial fibrillation on chronic anticoagulation -: Hypertension -: Hyperlipidemia -: CAD -: History of CVA -: Chronic renal disease -: Hypothyroidism -: Mastectomt R Side -: Tonsilectomy -: Brain Sx -: Bilater Knee Replacement Psychosocial/ Personal History: Patient lives with - Family History Family History: Reviewed- Non-Contributory - Social History Smoking Status: Never smoker Alcohol use: No CD- Drugs: No Caffeine use: Yes Place of Residence: Home Review of Systems General: Chills, Weakness, Malaise Eyes: Unremarkable ENT: Unremarkable Respiratory: Unremarkable Cardiovascular: Unremarkable Gastrointestinal: Unremarkable Genitourinary: Unremarkable Musculoskeletal: As per HPI Integumentary: As per HPI Neurological: As per HPI Lymphatics: Unremarkable Physical Examination - Studies Laboratory Data (last 24 hrs) 03/18/21 15:27: PT 21.9 H, INR 1.89, APTT 30.5 03/18/21 15:27: WBC 25.80 H*, Hgb 12.0, Hct 37.4, Plt Count 210 03/18/21 15:27: Sodium 138, Potassium 5.7 H*, BUN 91 H, Creatinine 3.82 H, Glucose 85, Total Bilirubin 1.9 H, AST 53 H, ALT 32, Alkaline Phosphatase 172 H, Lipase 136 Assessment and Plan - Plan COVID: Pending Chest x-ray: COMPARISON: CHEST SINGLE VIEW dated 03/05/2013; CHEST PA AND LAT 2 VIEW dated 09/06/2011; CHEST PA AND LAT 2 VIEW dated 08/10/2011; CHEST SINGLE VIEW dated 03/04/2011 FINDINGS: Portable technique limits examination quality. Mild bilateral interstitial lung opacities. This may represent pulmonary edema or viral infection. The heart is moderately enlarged. No displaced fractures. Venous Doppler: COMPARISON: No comparisons FINDINGS: Right lower extremity venous system was interrogated with Doppler technique. The proximal and mid femoral vein shows noncompressibility which may represent DVT. Elsewhere, no DVT is seen. IMPRESSION: The proximal and mid right femoral vein were not compressible suggesting DVT. Physical Exam: GENERAL: The patient is a well-developed, well-nourished, in no apparent distress. Alert and oriented x3. VITAL SIGNS: Reviewed HEENT: Head is normocephalic and atraumatic. Extraocular muscles are intact. Pupils are equal, round, and reactive to light and accommodation. Nares appeared normal. Mouth is well hydrated and without lesions. Mucous membranes are moist. NECK: Supple. No carotid bruits. No lymphadenopathy or thyromegaly. LUNGS: Clear to auscultation. No crackles or wheezes are heard. HEART: A. fib rate controlled ABDOMEN: Soft, nontender, and nondistended. Positive bowel sounds. No hepatosplenomegaly was noted. EXTREMITIES: Erythema to the inner thigh on the right side. Mild warmth. Mild pain noted. Patient with venous insufficiency varicose veins NEUROLOGIC: The patient is oriented to person, place and time. Strength and sensation are grossly intact. Face is symmetric. SKIN: Normal color, turgor and temperature. No ulcerations or rashes noted. 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 We will continue with Rocephin and add vancomycin to cover for cellulitis. Blood cultures obtained. Venous Doppler shows no evidence of DVT. Patient to get fluid bolus in the emergency room. Will limit fluid bolus due to her history of CHF. Will monitor for sepsis. We will continue with IV fluids. Will recheck lactic acid at 1900. Patient may require another fluid bolus depending on how she responds to initial fluid bolus. Will monitor closely. Patient with elevated troponin likely ischemic demand. Will consult nephrology and cardiology to assess. Echocardiogram pending. Anticipate improvement over the next 72 hours. I will turn the service over to the hospitalist team tomorrow. I will go plan of care with him. Hypotension with history of hypertension: Continue IV fluid bolus and IV fluids. Hold blood pressure medication. We need to verify home medication. 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 Nephrology c onsulted to further evaluate. Await recommendations. Atrial fibrillation on chronic anticoagulation therapy: Atrial fibrillation overall stable. Hold metoprolol for now due to low blood pressure. Continue with Eliquis but will lower dose due to renal disease. Elevated troponin likely ischemic demand with CAD: We will monitor telemetry and cardiac enzymes. Will check echocardiogram. Cardiology consulted. Await recommendations. Chronic diastolic CHF: Continue IV fluid bolus in the emergency room. Monitor fluid intake closely. Hyperlipidemia: Restart statin medication Hypothyroidism: Obtain and restart home medication. Will check TSH and free T4. Venous insufficiency with varicose veins: We will monitor this closely. Venous Doppler shows no DVT. Code Status: This was discussed in detail. Patient wishes to be DO NOT RESUSCITATE. DVT prophylaxis: Eliquis Advanced Care Planning-30 minutes: Anticipate home at discharge. Discharge Plan: Home Plan to discharge in: Greater than 2 days - Advance Directives Does patient have a Living Will: No Does patient have a Durable POA for Healthcare: No - Code Status/Comfort Care Code Status Assessed: Yes (Patient is DNR) Time Spent Managing Pts Care (In Minutes): 55
[2021-03-18 16:47] LABS: Urine Bacteria <20 /HPF (<20); Urine RBC <5 /HPF (NONE SEEN)
[2021-03-18] MEDS: THIAMINE HCL 100 MG TABLET PO SCH (17:56)
[2021-03-18] MEDS ORDERED: ONDANSETRON 4 MG/2 ML VIAL IV PRN (17:56)
[2021-03-18] MEDS ORDERED: ACETAMINOPHEN 500 MG TAB PO PRN (17:56)
[2021-03-18] MEDS: NA CHLORIDE 0.9% 1,000 ML IV SCH (18:30)
[2021-03-18] MEDS: VANCOMYCIN/NS 1 gm 1 GM/250 ML BAG IV SCH (19:00)
[2021-03-18 19:24] LABS: Blood Morphology Comment NOT SEEN (NOT SEEN); Platelet Estimate ADEQ
[2021-03-18 19:46] LABS: CKMB Creatine Kinase MB 9.3 ng/mL (1.0-3.6)
[2021-03-18 19:58] LABS: Troponin I 2.41 ng/mL (0.0-0.045)
[2021-03-18] MEDS ORDERED: ATORVASTATIN 20 MG TAB ONE (20:50)
[2021-03-18] MEDS ORDERED: APIXABAN 5 MG TABLET ONE (20:50)
[2021-03-18] MEDS: APIXABAN 2.5 MG TABLET PO SCH (20:55)
[2021-03-18] MEDS: ATORVASTATIN 10 MG TAB PO SCH (20:55)
[2021-03-18 21:45] LABS: Potassium 5.8 mmol/L (3.5-5.1)
[2021-03-18] MEDS ORDERED: IPRATROPIUM BROM 0.5MG/2.5ML NEB PRN (21:46)
[2021-03-18] MEDS ORDERED: ALBUTEROL 2.5 MG/3 ML NEB SOL NEB PRN (21:46)
[2021-03-18] MEDS ORDERED: D50W 25 GM/50 ML SYRINGE IV PRN (21:47)
[2021-03-18] MEDS ORDERED: INSULIN -REGULAR HUMAN 50 UNIT/0.5 ML ML IV ONE (21:47)
[2021-03-18] MEDS ORDERED: GLUCAGON 1 MG/VIAL IM PRN (21:47)
[2021-03-18] MEDS ORDERED: D50W 25 GM/50 ML SYRINGE IV ONE (21:47)
[2021-03-18] MEDS ORDERED: CALCIUM GLUC 10% INJ 4.65 MEQ in NA CHLORIDE 0.9% 100 ML IV ONE (21:55)
[2021-03-18] MEDS ORDERED: NOREPINEPHRINE 4 MG in D5W 250 ML IV SCH (22:00)
[2021-03-18] MEDS ORDERED: FUROSEMIDE 20 MG/ 2ML VIAL IV ONE (22:27)
[2021-03-18] MEDS ORDERED: FUROSEMIDE 20 MG/ 2ML VIAL ONE (23:15)
[2021-03-18] MEDS ORDERED: D50W 50 ML IV ONE (23:15)
[2021-03-18] MEDS ORDERED: NOREPINEPHRINE 4mg/D5W 250mL 4 MG/250 ML BAG IV ONE (23:16)
[2021-03-18] MEDS ORDERED: INSULIN -REGULAR HUMAN 50 UNIT/0.5 ML ML ONE (23:18)
[2021-03-19 01:36] LABS: CKMB Creatine Kinase MB 9.4 ng/mL (1.0-3.6)
[2021-03-19 04:48] LABS: Absolute Lymphocytes (CBC) 0.5 K/uL (0.7-4.9); Basophils % 0.2 % (0-1.3); Hematocrit 35.8 % (36.0-45.0); Lymphocytes % 1.8 % (15.3-44.8); MPV 8.4 fL (7.6-11.3)
[2021-03-19 05:09] LABS: Albumin 2.2 g/dL (3.4-5.0); Bilirubin Total 1.4 mg/dL (0.2-1.0); Magnesium 2.7 mg/dL (1.8-2.4); Potassium 5.4 mmol/L (3.5-5.1); Protein, Total 6.3 g/dL (6.4-8.2); Thyroid Stimulating Hormone 1.32 uIU/mL (0.360-3.740)
[2021-03-19] MEDS ORDERED: CALCIUM GLUC 10% INJ 4.65 MEQ in NA CHLORIDE 0.9% 100 ML IV ONE (08:00)
[2021-03-19] MEDS ORDERED: CEFTRIAXONE 1,000 MG in NA CHLORIDE 0.9% 50 ML IVPB SCH (09:00)
[2021-03-19] MEDS ORDERED: VANCOMYCIN 1 GM in NA CHLORIDE 0.9% 500 ML IVPB SCH (09:00)
[2021-03-19] MEDS ORDERED: FUROSEMIDE 20 MG/ 2ML VIAL ONE (09:01)
[2021-03-19] MEDS ORDERED: NA CHLORIDE 0.9% 50 ML ONE (09:02)
[2021-03-19] MEDS ORDERED: FOLIC ACID 1 MG TABLET ONE (09:02)
[2021-03-19] MEDS ORDERED: THIAMINE HCL 100 MG TABLET ONE (09:02)
[2021-03-19] MEDS ORDERED: CEFTRIAXONE 1000 MG/VIAL ONE (09:02)
[2021-03-19] MEDS: APIXABAN 2.5 MG TABLET PO SCH ×2 (09:07→21:00)
[2021-03-19] MEDS: FOLIC ACID 1 MG TABLET PO SCH (09:07)
[2021-03-19] MEDS: THIAMINE HCL 100 MG TABLET PO SCH (09:07)
[2021-03-19] MEDS: FUROSEMIDE 20 MG/ 2ML VIAL IV SCH ×2 (09:07→16:13)
[2021-03-19] MEDS: NA CHLORIDE 0.9% 1,000 ML IV SCH (09:43)
[2021-03-19] MEDS ORDERED: ALBUTEROL 2.5 MG/3 ML NEB SOL ONE (09:58)
[2021-03-19] MEDS ORDERED: IPRATROPIUM BROM 0.5MG/2.5ML ONE (09:58)
[2021-03-19] MEDS ORDERED: CEFEPIME 1 GM in NA CHLORIDE 0.9% 100 ML IV SCH (11:00)
[2021-03-19] MEDS ORDERED: METHYLPREDNISOLONE 40 MG INJ ONE (11:01)
[2021-03-19] MEDS: METHYLPREDNISOLONE 40 MG INJ IV SCH ×2 (11:03→16:13)
--- NOTE | 2021-03-19 11:12 | CON ---
Date of Consultation: 03/19/2021 History Of Present Illness: The patient is seen in room 27 in the emergency room. She is on hold in ICU status and being closely monitored. The patient is currently on Levophed right now. The blood pressure is running in the high 80s to high 90 range. Last blood pressure was 99/71 and currently th e blood pressures came up to 110 systolic with the patient being on Levophed that turned on again. T he patient's respirations are around 16 to 18. She is comfortable, but is wheezing bilaterally from evaluation of her lungs anteriorly and also posteriorly. The patient has significant wheezing. She also has crackles at the bases of the lungs and also crackles can be heard at the front as well. The patient also has some edema. She is able to give history. She does not have very good recall, but I remembers that she has some kidney disease. She is not sure she has had prednisone recently. She does say that she has smoked in the past. She is currently in atrial fibrillation. This is not new for her. She is on Eliquis for DVT, which is on the right lower extremity. [facility] Lagos, her primary assistant boys track coach and my partner, as the patient was having significant cellulitis and was found to have a WBC count in the 20,000 range. Her atrial fibrillation is reasona eric controlled at this point. She is not on any beta blockers, any medications for this. She has no t got a neb treatment this morning, but has nebulizer treatment ordered with albuterol. Past Medical History: Significant for CKD stage 3/4. The patient has been on anticoagulation with h istory of atrial fibrillation. The patient has hyperlipidemia, has been on medications for that. Sh cristo had been on metoprolol in the past at 50 mg b.i.d. She has a history of hypothyroidism, history of tonsillectomy. She has a history of CAD. Family History: At this point, noncontributory. Social History: Lives with , seems to be alert, awake, and comfortable. Does not seem to hav e any depression. Denies any drug use or alcohol abuse or smoking at this time. Has smoked in the p ast. Review of Systems: The patient does not have any significant complaints at this point. She does have some mild shortnes s of breath. She does have some wheezing. She is not having any nausea, was able to tolerate her br eakfast. She is able to get some answers to questions, but she does seem to have some mild confusion , question baseline. Physical Examination: Vital Signs: On physical evaluation, the patient's vitals are reasonably stable with blood pressure had been on the lower side. The patient has been on Lasix 20 mg IV b.i.d. She has been having some wheezing and volume overload. Her blood pressure has been running in the high 90, low 100 range. Ethel lemons has been requiring some low-dose Levophed to keep the blood pressure above 100. The patient's ramiro thing is about 14 to 16. She is comfortable at rest. Her O2 sats are low 90s with a room air. Lung s: With wheezes bilaterally and some decreased breath sounds and crackles at the bases. Abdomen: Soft. Extremities: Revealed positive 1-2 edema bilaterally with cellulitis on the right inner thigh that s eems to be quite angry. There are markings to demarcate the extent of cellulitis. This seems to indy w that the cellulitis is improving as it has regressed from the marked area. Laboratory Data: Reviewed. WBC count again today is 25,400, it was 25,800 yesterday. Hemoglobin is reasonably stable at 11.3, hematocrit 35.8, platelet count of 189. Chemistries show sodium 140, pot assium 5.4, it was 5.8 yesterday, chloride 109, bicarb is 23, BUN is 92, creatinine is 3.52, glucose is 67, calcium at 7.6, magnesium 2.7. AST, ALT 48 and 28. CK level at 180, CK-MB at 9.4, troponin s lightly elevated at 2.41, albumin at 2.2. TSH level of 1.3. Assessment And Plan: An 89-year-old female frail, elderly with significant acute kidney injury at th is point with elevated potassium, presents with right lower extremity cellulitis and DVT, low blood [place]sure[place] [address] [place]. Cultures are still pending at this point. The patient has gotten vancomycin. She has also gotten Rocephin. The patient had gotten some IV fluids boluses in the emergency room, but got significantly "wet" at that time and required her Lasix to be restarted. Her blood pressures are running on the lower side. Her lungs are still demonstrating jorje te a bit of wheezing and crackles. She has a history of smoking, does not recall if she has used pre dnisone recently, but does not have any allergies to any antibiotics except for sulfa antibiotics, cl indamycin, and allergies to codeine. She is able to answer some questions. Her recall is somewhat p oor. Question baseline. Plan: At this point, we will change her Rocephin to cefepime to cover for Pseudomonas while cultures are pending. We will start her on Solu-Medrol 40 mg IV q.8 hours. Continue with neb treatments wit h 1 neb treatment right now. Monitor blood pressure. If there is any component of adrenal insuffici ency, Solu-Medrol should help with that as well. Discontinue IV fluids for now and continue Lasix ju diciously. The patient is currently on Levophed. Continue to monitor with goal to keep the blood pr essure systolic above 100. Chest x-ray for tomorrow morning. CBC and BMP for tomorrow as well. Leona iting blood cultures. Depending on the results, some antibiotics can be modified further. The patie nt has gotten a dose of vancomycin. We will get a level and add vancomycin dose if level is below 15 . The goal is to keep it between 15 to 20. Blood cultures are pending. For hyperkalemia, we will g bernie her a dose of Lokelma or Kayexalate whatever is available to see if we can assist with getting th e better control. The patient is eating and drinking somewhat better. We will monitor with BMP agai n tomorrow. The patient does have significant acute kidney injury. This is in setting of infection and in the setting of hypotension. Hopefully with blood pressure improving, hemodynamics improving, antibiotics are treating the infection, this should improve concern for sepsis. The patient is being closely monitored in ICU setting right now in the emergency room hold. About 45 minutes spent evaluating the patient, reviewing medications, adjusting medications. Plan al so discussed with the ICU nurse and the ER that is supervising the patient right now. /MAYRA Voice ID: [id number] Report ID: [id number]
--- NOTE | 2021-03-19 14:35 | P.PN ---
Subjective Date of Service: 03/19/21 Primary Care Provider: Dr. Goodman; Cardiology-Dr. Barnes Chief Complaint: Fatigue pt sitting in bed feeling better, no events this morning but was started on pressor last night Physical Examination - Vital Signs Temperature: 98.0 F Blood Pressure: 126/69 Pulse: 98 Respirations: 17 Pulse Ox (%): 95 - Studies Laboratory Data (last 24 hrs) 03/18/21 15:27: PT 21.9 H, INR 1.89, APTT 30.5 03/18/21 15:27: WBC 25.80 H*, Hgb 12.0, Hct 37.4, Plt Count 210 03/18/21 15:27: Sodium 138, Potassium 5.7 H*, BUN 91 H, Creatinine 3.82 H, Glucose 85, Total Bilirubin 1.9 H, AST 53 H, ALT 32, Alkaline Phosphatase 172 H, Lipase 136 Assessment & Plan Physician Review Additional Text: COVID: Pending Chest x-ray: COMPARISON: CHEST SINGLE VIEW dated 03/05/2013; CHEST PA AND LAT 2 VIEW dated 09/06/2011; CHEST PA AND LAT 2 VIEW dated 08/10/2011; CHEST SINGLE VIEW dated 03/04/2011 FINDINGS: Portable technique limits examination quality. Mild bilateral interstitial lung opacities. This may represent pulmonary edema or viral infection. The heart is moderately enlarged. No displaced fractures. Venous Doppler: COMPARISON: No comparisons FINDINGS: Right lower extremity venous system was interrogated with Doppler technique. The proximal and mid femoral vein shows noncompressibility which may represent DVT. Elsewhere, no DVT is seen. IMPRESSION: The proximal and mid right femoral vein were not compressible suggesting DVT. Physical Exam: GENERAL: The patient is a well-developed, well-nourished, in no apparent distress. Alert and oriented x3. VITAL SIGNS: Reviewed HEENT: Head is normocephalic and atraumatic. Extraocular muscles are intact. Pupils are equal, round, and reactive to light and accommodation. Nares appeared normal. Mouth is well hydrated and without lesions. Mucous membranes are moist. NECK: Supple. No carotid bruits. No lymphadenopathy or thyromegaly. LUNGS: Clear to auscultation. No crackles or wheezes are heard. HEART: A. fib rate controlled ABDOMEN: Soft, nontender, and nondistended. Positive bowel sounds. No hepatosplenomegaly was noted. EXTREMITIES: Erythema to the inner thigh on the right side. Mild warmth. Mild pain noted. Patient with venous insufficiency varicose veins NEUROLOGIC: The patient is oriented to person, place and time. Strength and sensation are grossly intact. Face is symmetric. SKIN: Normal color, turgor and temperature. No ulcerations or rashes noted. 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 currently on pressor with low dose levophed , Blood cultures obtained so far neg . Venous Doppler shows no evidence of DVT. off fluids per nephrology and back on lasix Patient with elevated Troponin likely Ischemic demand. cardiology consult pending Echocardiogram pending. 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 Hold metoprolol for now due to low blood pressure. Continue with Eliquis but will lower dose due to renal disease. Elevated troponin likely ischemic demand with CAD: -We will monitor telemetry and cardiac enzymes. echocardiogram and Cardiology consult pending Chronic diastolic CHF: -on low dose lasix Hyperlipidemia: -on statin medication Hypothyroidism: -Obtain and restart home medication. TSH and free T4 both normal Venous insufficiency with varicose veins: -Venous Doppler shows no DVT. Code Status: -This was discussed in detail. Patient wishes to be DO NOT RESUSCITATE. DVT prophylaxis: Eliquis Advanced Care Planning-30 minutes: Anticipate home at discharge. Discharge Plan: Home Plan to discharge in: Greater than 2 days - Advance Directives Does patient have a Living Will: No Does patient have a Durable POA for Healthcare: No - Code Status/Comfort Care Code Status Assessed: Yes (Patient is DNR)
--- NOTE | 2021-03-19 15:29 | CON ---
Date of Consultation: 03/19/2021 Reason For Consultation: Elevated troponin. History Of Present Illness: This is an 89-year-old female, who presented to the emergency room due t o generalized fatigue and weakness. Denies having any chest pain. Had some chills and erythema of h er right thigh. She was diagnosed with cellulitis and the workup that was done in the emergency room , troponin was done, it was 2.4. The patient denied having any history of coronary artery disease or cardiac stent placement or any chest pain. She is chest pain-free right now and has no cardiac comp laints. Past Medical History: Atrial fibrillation, on chronic anticoagulation; hypertension; dyslipidemia; C VA; chronic renal disease. Medications: Refer reconciliation sheet for detailed List. Allergies: CLINDAMYCIN, CODEINE, AND SULFA. Social History: Does not smoke or drink. Does not use drugs. Family History: No premature coronary artery disease or cancer. Review of Systems: All systems reviewed and they were negative except mentioned in the HPI. Physical Examination: Vital Signs: Temperature is 98, pulse is 98, breathing at 17, blood pressure 126/69, saturating 95% on room air. General: Pleasant elderly female, in no apparent distress. Head and Neck: Pupils are equal and reactive to light. Intact eye movements. No JVD. No cervical lymphadenopathy. Neck: Supple. Thyroid is not enlarged. Lungs: Clear to auscultation bilaterally. No rhonchi, rales, or crackles. No accessory muscle use. Heart: Irregularly irregular with aortic systolic ejection murmur suggestive of aortic stenosis. Abdomen: Soft and nontender. Bowel sounds positive. No organomegaly. No masses or hernia. No rig idity or rebound. Extremities: No clubbing or cyanosis. She has significant erythema of the right thigh with fullness and tenderness. Neurologic: Alert, awake, oriented x3. No acute focal deficits appreciated. Investigations: Creatinine 3.52, troponin 2.41. Assessment And Recommendations: 1.Elevated troponin. EKG without acute specific changes. This could be demand, however, also could represent non-ST elevation myocardial infarction. I recommend anticoagulation with Lovenox based on her kidney function and weight. Trend 2 more sets of troponin. Obtain an echocardiogram to assess for wall motion abnormality and the severity of her aortic valve stenosis and further recommendation will follow. Please make sure the patient is on aspirin daily. 2.Aortic valve stenosis by physical exam. Obtain an echo to evaluate the gradient and recommendatio n will follow accordingly. 3.Atrial fibrillation, rate is controlled and anticoagulation as above. Thank you for the consult. /MAYRA Voice ID: [id number] Report ID: [id number]
[2021-03-19] MEDS: ATORVASTATIN 10 MG TAB PO SCH (21:00)
[2021-03-19] MEDS ORDERED: APIXABAN 5 MG TABLET ONE (21:36)
[2021-03-20] MEDS: METHYLPREDNISOLONE 40 MG INJ IV SCH ×2 (01:00→08:26)
[2021-03-20] MEDS ORDERED: METHYLPREDNISOLONE 40 MG INJ ONE ×2 (01:12→07:37)
[2021-03-20 05:43] LABS: Absolute Lymphocytes (CBC) 0.2 K/uL (0.7-4.9); Basophils % 0.1 % (0-1.3); Hematocrit 37.7 % (36.0-45.0); MPV 8.4 fL (7.6-11.3); RBC Red Blood Cell Count 4.01 M/uL (3.86-4.86)
[2021-03-20 06:05] LABS: Albumin 2.4 g/dL (3.4-5.0); Magnesium 2.8 mg/dL (1.8-2.4); Potassium 5.1 mmol/L (3.5-5.1); Protein, Total 6.9 g/dL (6.4-8.2)
[2021-03-20] MEDS ORDERED: FUROSEMIDE 20 MG/ 2ML VIAL ONE (07:36)
[2021-03-20] MEDS ORDERED: THIAMINE HCL 100 MG TABLET ONE (07:36)
[2021-03-20] MEDS ORDERED: FOLIC ACID 1 MG TABLET ONE (07:37)
[2021-03-20] MEDS: THIAMINE HCL 100 MG TABLET PO SCH (08:26)
[2021-03-20] MEDS: FUROSEMIDE 20 MG/ 2ML VIAL IV SCH ×2 (08:26→17:52)
[2021-03-20] MEDS: APIXABAN 2.5 MG TABLET PO SCH ×2 (08:26→20:43)
[2021-03-20] MEDS: FOLIC ACID 1 MG TABLET PO SCH (08:26)
[2021-03-20] MEDS ORDERED: CEFEPIME 1 GM/VIAL ONE (08:30)
[2021-03-20] MEDS ORDERED: NA CHLORIDE 0.9% 0 ML ONE ×2 (08:30→08:32)
[2021-03-20] MEDS ORDERED: predniSONE 10 MG TAB ONE (09:30)
[2021-03-20] MEDS ORDERED: carvediloL 6.25 MG TAB ONE (09:30)
[2021-03-20] MEDS ORDERED: SOD POLYSTYREN SUL 15 GM/60 ML UCUP ONE (09:30)
[2021-03-20] MEDS: predniSONE 10 MG TAB PO SCH ×2 (09:32→20:42)
[2021-03-20] MEDS: carvediloL 6.25 MG TAB PO SCH ×2 (09:32→20:42)
[2021-03-20] MEDS: CEFEPIME 1 GM in NA CHLORIDE 0.9% 100 ML IV SCH (09:33)
[2021-03-20] MEDS ORDERED: CEFEPIME 1 GM/VIAL IV SCH (10:00)
[2021-03-20] MEDS ORDERED: SOD POLYSTYREN SUL 15 GM/60 ML UCUP PO ONE (10:00)
--- NOTE | 2021-03-20 10:33 | PN ---
Date of Progress Note: 03/20/2021 Subjective: The patient is alert, awake, communicating better. She states she feels a whole lot bet ter. Her blood pressures have significantly improved. She is not requiring pressors anymore. Her b lood pressure as of last evening started coming up. Earlier on March 18, the blood pressures were dropping down to systolic 80s, yesterday started coming up to 112 in the morning and then in the marques tiffanie, the patient's blood pressure after receiving steroids and antibiotics, went up to 160/91. Objective: Vital Signs: This morning, the blood pressure is 154/116, pulse is around 90, respiratio ns are around 14. She is still in atrial fibrillation, O2 sats are 96% on room air. General: She is comfortable. She denies any nausea, vomiting. She denies any pain. Lungs: Clear to auscultation bilaterally with decreased breath sounds with few crackles at the very bases. Abdomen: Soft. Extremities: Reveal trace edema bilaterally. Significant improvement even compared to yesterday. S he has still cellulitis in the right inner thigh, but this is also significantly improved. The eusebia ss is much less angry. The area is reducting significantly from the marked lines and she is not havi ng any discomfort there as well. She states that she feels a whole lot better. Laboratory Data: On evaluation of the lab work, the patient's labs show WBC count with a [place] [address]60.4 to [address], but the patient has also gotten steroids yesterday. Hemoglobin 11.9, hematoc rit 37.7, platelet count of 185. Chemistry shows sodium 140, potassium 5.1, this is an improvement f rom yesterday when it was 5.4. Carbon dioxide at 22, BUN 96, creatinine at 3.46, calcium level at 8, magnesium 2.8, and albumin level at 2.4, stable from 2.2 yesterday. TSH level yesterday was 1.3. H er vancomycin level came around 10 range yesterday. Assessment And Plan: The patient with right inner thigh cellulitis, acute kidney injury, hyperkalemi a, volume overload, atrial fibrillation. Blood pressure now improved and in hypertensive range. Pul se is stable at about 90, in atrial fibrillation with controlled heart rate. Cardiology evaluation h as been done. Appreciate Dr. Girard's input. Plan: 1.Hyperkalemia improved. Potassium is 5.1 at this point. We will give her dose of Kayexalate. Con tinue Lasix. 2.Volume status significantly improved. Still with some volume overload, but breathing comfortably. Get an x-ray today. X-ray is ordered and continue Lasix low dose at 20 mg b.i.d. This should also help her blood pressure, which is now coming up. 3.Blood pressures have gone up to 150-160 systolic range, diastolic is also getting close to 100 and in fact the last reading was over 100. We will start the patient on 6.25 mg of Coreg twice a day wi th parameters to hold for SBP less than 110 and/or pulse less than 60. Appreciate Cardiology if furt her adjustments are needed. May consider also adding amlodipine low dose if blood pressure continues to stay high. Would avoid spironolactone or medications like CARSON inhibitors given the patient's hig h potassium and acute kidney injury at this point. 4.Acute kidney injury. BUN is reasonably stable, slightly up from 92 yesterday to 96 today. This c ould also be because the patient has gotten steroids. Creatinine from 3.52 to 3.46, which is a sligh t improvement. Continue with Lasix currently. Encourage p.o. intake as the antibiotics are treating the infection. The patient is not looking septic anymore. She is off the pressors. Blood pressure s are improved. Hemodynamics are better. This should also improve the KIANNA. I have discussed with t he patient slight need or possibility that may develop for the patient needing dialysis. If her kidn eys continue to worsen, the patient is open to this, but at this point, there is no acute need for di alysis and I do not expect her to need dialysis as these issues are acute and with correction of her hemodynamics infection, volume status, this should get better. Avoid NSAID. Avoid nephrotoxins. 5.Hypocalcemia. The patient got vitamin D replacement. 6.Slightly elevated troponin, question demand versus non-ST elevation [place]. The patient has Cardiolog y following. Currently clinically stable. 7.Hypothyroidism. TSH 1.32, on replacement. 8.Cellulitis, currently on broad antibiotics, adjust as needed once cultures are back. Currently, n o growth on blood cultures. Appreciate input from the hospitalist. Appreciate your consultation. I have ordered Coreg with parameters. I have ordered a dose of Kayexa late. I have changed the steroids to 10 mg prednisone b.i.d. from the Solu-Medrol she was getting. Continue to monitor closely. The patient is still in relatively critical condition, but significantl y improved compared to yesterday. About 45 minutes spent with evaluating patient, medication changes and reviewing chart and examination of the patient. /MAYRA Voice ID: [id number] Report ID: [id number]
[2021-03-20] MEDS ORDERED: ALBUTEROL 2.5 MG/3 ML NEB SOL ONE (11:00)
[2021-03-20] MEDS ORDERED: IPRATROPIUM BROM 0.5MG/2.5ML ONE (11:00)
--- NOTE | 2021-03-20 11:16 | RAD REPORT ---
EXAM DESCRIPTION: Ny Ponce And María (2 Views)03/20/2021 9:07 am CLINICAL HISTORY: Shortness of breath COMPARISON: March 18 FINDINGS: Small left pleural effusion. A few areas of bibasilar atelectasis. Upper lobes appear clear. Heart is mildly enlarged
--- NOTE | 2021-03-20 12:59 | P.PN ---
Subjective Date of Service: 03/20/21 Primary Care Provider: Dr. Goodman; Cardiology-Dr. Barnes Chief Complaint: Fatigue pt sitting in bed, feeling much better, she is moving to her bed on second floor, no events , she is off pressors Physical Examination - Vital Signs Temperature: 98.4 F Blood Pressure: 144/86 Pulse: 87 Respirations: 21 Pulse Ox (%): 96 - Studies Microbiology Data (last 24 hrs): 03/18/21 15:39 Clean Catch Urine [place] Count - Final No growth. 03/18/21 15:39 Clean Catch Urine - Final No growth. Assessment & Plan Physician Review Additional Text: COVID: Pending Chest x-ray: COMPARISON: CHEST SINGLE VIEW dated 03/05/2013; CHEST PA AND LAT 2 VIEW dated 09/06/2011; CHEST PA AND LAT 2 VIEW dated 08/10/2011; CHEST SINGLE VIEW dated 03/04/2011 FINDINGS: Portable technique limits examination quality. Mild bilateral interstitial lung opacities. This may represent pulmonary edema or viral infection. The heart is moderately enlarged. No displaced fractures. Venous Doppler: COMPARISON: No comparisons FINDINGS: Right lower extremity venous system was interrogated with Doppler kemar hnique. The proximal and mid femoral vein shows noncompressibility which may represent DVT. Elsewhere, no DVT is seen. IMPRESSION: The proximal and mid right femoral vein were not compressible sugge sting DVT. Physical Exam: GENERAL: The patient is a well-developed, well-nourished, in no apparent distress. Alert and oriented x3. VITAL SIGNS: Reviewed HEENT: Head is normocephalic and atraumatic. Extraocular muscles are intact. Pupils are equal, round, and reactive to light and accommodation. Nares appeared normal. Mouth is well hydrated and without lesions. Mucous membranes are moist. NECK: Supple. No carotid bruits. No lymphadenopathy or thyromegaly. LUNGS: Clear to auscultation. No crackles or wheezes are heard. HEART: A. fib rate controlled ABDOMEN: Soft, nontender, and nondistended. Positive bowel sounds. No hepatosplenomegaly was noted. EXTREMITIES: Erythema to the inner thigh on the right side. Mild warmth. Mild pain noted. Patient with venous insufficiency varicose veins NEUROLOGIC: The patient is oriented to person, place and time. Strength and sensation are grossly intact. Face is symmetric. SKIN: Normal color, turgor and temperature. No ulcerations or rashes noted. 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 she is off pressors , WBC down to 20 k, Blood cultures obtained so far neg . Venous Doppler shows no evidence of DVT. off fluids per nephrology and back on lasix Cr improving but still very high Patient with elevated Troponin likely Ischemic demand. cardiology consult pending Echocardiogram pending. Hypotension with history of hypertension: -resolved ? 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 Hold metoprolol for now due to low blood pressure. Continue with Eliquis on lower dose due to renal insuff Elevated troponin likely ischemic demand with CAD: -troponin peaked, at 2.4, echocardiogram and Cardiology consult pending Chronic diastolic CHF: -on low dose lasix Hyperlipidemia: -on statin medication Hypothyroidism: -cont synthyroid TSH and free T4 both normal Venous insufficiency with varicose veins: -Venous Doppler shows no DVT. Code Status: -This was discussed in detail. Patient wishes to be DO NOT RESUSCITATE. DVT prophylaxis: Eliquis Advanced Care Planning-30 minutes: Anticipate home at discharge in 3-4 days, echo and cardio pending, WBC still high as well as Cr and Cx final pending too Discharge Plan: Home Plan to discharge in: Greater than 2 days - Advance Directives Does patient have a Living Will: No Does patient have a Durable POA for Healthcare: No - Code Status/Comfort Care Code Status Assessed: Yes (Patient is DNR)
--- NOTE | 2021-03-20 16:03 | PN ---
Date of Progress Note: 03/20/2021 Subjective: Seen at bedside. She is doing well. Does not have any chest pain. Review of Systems: No chest pain, shortness of breath, orthopnea, or cough. No nausea, vomiting, or diarrhea. No abdom inal pain. No dysuria, polyuria, or urinary urgency. No skin rash or headache. She has erythema of her right thigh with improvement. Physical Examination: Vital Signs: Reviewed. Head and Neck: Pupils are equal and reactive to light. Intact eye movements. No JVD. No cervical lymphadenopathy. Neck: Supple. Thyroid not enlarged. Lungs: Clear to auscultation bilaterally. No rhonchi, rales, or crackles. No accessory muscle use. Heart: Irregularly irregular. No extra sounds. Abdomen: Soft, nontender. Bowel sounds positive. No organomegaly. No masses or hernia. No rigidi ty or rebound. Extremities: No clubbing or cyanosis. There is some erythema of her right thigh with slight improve ment. Neurologic: Alert, awake, and oriented x3. No acute focal deficits appreciated. Investigations: Troponin is 2.23, which is down from 2.41. Assessment And Recommendations: 1.Elevated troponin. The etiology is not clear. However, there are no symptoms, so this could be d emand and could be related to the aortic valve stenosis. Await on echocardiogram to further determin e the plan given that she has significant chronic kidney disease with a creatinine of 3.4. We will p john for less invasive workup if possible. Once her infection is under control, we will re-evaluate h er kidney function and based on that, we will decide the way of the workup. In the interim, we need an echocardiogram to evaluate the severity for aortic valve stenosis. 2.Atrial fibrillation, rate is controlled. Continue current management including anticoagulants and beta-hselley. Thank you for the consult. /MAYRA Voice ID: [id number] Report ID: [id number]
[2021-03-20] MEDS: VANCOMYCIN/NS 1 gm 1 GM/250 ML BAG IV SCH (18:24)
[2021-03-20] MEDS: ATORVASTATIN 10 MG TAB PO SCH (20:43)
[2021-03-21 06:30] LABS: Absolute Lymphocytes (CBC) 0.2 K/uL (0.7-4.9); Basophils % 0.1 % (0-1.3); Hematocrit 36.6 % (36.0-45.0); Lymphocytes % 1.5 % (15.3-44.8); MPV 8.4 fL (7.6-11.3); RBC Red Blood Cell Count 3.87 M/uL (3.86-4.86)
[2021-03-21 06:49] LABS: Albumin 2.3 g/dL (3.4-5.0); Bilirubin Total 0.8 mg/dL (0.2-1.0); Magnesium 2.6 mg/dL (1.8-2.4); Potassium 4.4 mmol/L (3.5-5.1); Protein, Total 6.7 g/dL (6.4-8.2)
[2021-03-21] MEDS: CEFEPIME 1 GM in NA CHLORIDE 0.9% 100 ML IV SCH (08:47)
[2021-03-21] MEDS: FOLIC ACID 1 MG TABLET PO SCH (08:47)
[2021-03-21] MEDS: predniSONE 10 MG TAB PO SCH ×2 (08:47→20:24)
[2021-03-21] MEDS: APIXABAN 2.5 MG TABLET PO SCH ×2 (08:48→20:25)
[2021-03-21] MEDS: carvediloL 6.25 MG TAB PO SCH ×2 (08:48→20:24)
[2021-03-21] MEDS: FUROSEMIDE 20 MG/ 2ML VIAL IV SCH ×2 (08:48→16:15)
[2021-03-21] MEDS: THIAMINE HCL 100 MG TABLET PO SCH (08:48)
--- NOTE | 2021-03-21 10:48 | PN ---
Date of Progress Note: 03/21/2021 Subjective: The patient is seen at [facility] in [place]. The patient is s een in room #216. She is much improved. She is sitting up comfortably. She is walked to the [place] . Earlier, she says she did that with nursing assistance. She is still in atrial fibrillation, bu t heart rate is much better with running at about 70. Objective: Vital Signs: Her blood pressures are improved running in 130 range, was 132/84 earlier, 139/84 last checked. This morning pulse is about 70, respirations around 16 and comfortable. The pa jeramy is afebrile, saturating at 98% on room air. Lungs: Clear anteriorly. Crackles at the very bases of her lungs significantly improved. Air entry is good. She is not having any wheezing. She is breathing more comfortably, talking more comfortab ly. She is more alert. Abdomen: Soft. Extremities: Revealed no edema. Right inner thigh cellulitis is significantly improved with the tommy lulitic redness fading away significantly and also the area of infection is declining and retracting. The patient denies any pain over here and states she feels all lot better and the leg is also feeli ng a whole lot better with no burning. No discomfort now as she had earlier. Medications: Reviewed. The patient has been getting cefepime. Her blood cultures are still pending . She is also getting albuterol nebulizers as needed. She is on Coreg 6.25 p.o. b.i.d. She is also getting furosemide 20 mg b.i.d. IV. She is on a low dose of prednisone at 10 mg p.o. b.i.d. Assessment And Plan: 1.The patient with significant improvement. We will continue antibiotics for treatment of her cellu litis. The patient is much improved with this. Blood cultures are still pending but not finalized. 2.Adrenal insufficiency/recent prednisone steroid use. The patient's blood pressures are reasonably stable at this point. We will go ahead and taper prednisone down a little bit further to prednisone 10 mg daily. Further taper can be done on outpatient basis or depending on how long the patient is here in the hospital further. 3.Hypertension, hypovolemia, significantly improved. Furosemide 20 mg IV b.i.d., Coreg 6.25 p.o. b. i.d. Continue with monitoring. Furosemide can be changed to p.o. once the patient is discharged [facility] with followup with Dr. Lagos once acute issues are resolved. 4.Hyperkalemia, resolved with furosemide. The patient is clinically much improved. 5.General debility, frail elderly. Advised to call nurses for any movement or getting out of bed. The patient did walk earlier to the bathroom with nursing assistance and states that she is doing a l ot better and feels stronger. In summary cut back on prednisone, can switch furosemide to p.o. on r, antibiotic adjustments as per cultures and depending on condition at the time of discharge, continue Coreg and Lasix for now. Blood pressure seems stable. Volume status is improving. Celluli tis and infection is improving. 6.Acute kidney injury, significantly better. Repeat BMP on Tuesday. /MAYRA Voice ID: [id number] Report ID: [id number]
--- NOTE | 2021-03-21 12:40 | P.PN ---
Subjective Date of Service: 03/21/21 Primary Care Provider: Dr. Goodman; Cardiology-Dr. Barnes Chief Complaint: Fatigue pt sitting in bed, feeling much better,her leg pain much less, less erythrema, eating well but still very weak Physical Examination - Vital Signs Temperature: 96.9 F Blood Pressure: 139/84 Pulse: 70 Respirations: 18 Pulse Ox (%): 98 - Studies Microbiology Data (last 24 hrs): 03/18/21 15:39 Clean Catch Urine [place] Count - Final No growth. 03/18/21 15:39 Clean Catch Urine - Final No growth. Assessment & Plan Physician Review Additional Text: COVID: Pending Chest x-ray: COMPARISON: CHEST SINGLE VIEW dated 03/05/2013; CHEST PA AND LAT 2 VIEW dated 09/06/2011; CHEST PA AND LAT 2 VIEW dated 08/10/2011; CHEST SINGLE VIEW dated 03/04/2011 FINDINGS: Portable technique limits examination quality. Mild bilateral interstitial lung opacities. This may represent pulmonary edema or viral infection. The heart is moderately enlarged. No displaced fractures. Venous Doppler: COMPARISON: No comparisons FINDINGS: Right lower extremity venous system was interrogated with Doppler technique. The proximal and mid femoral vein shows noncompressibility which may represent DVT. Elsewhere, no DVT is seen. IMPRESSION: The proximal and mid right femoral vein were not compressible suggesting DVT. Physical Exam: GENERAL: The patient is a well-developed, well-nourished, in no apparent distress. Alert and oriented x3. VITAL SIGNS: Reviewed HEENT: Head is normocephalic and atraumatic. Extraocular muscles are intact. Pupils are equal, round, and reactive to light and accommodation. Nares appeared normal. Mouth is well hydrated and without lesions. Mucous membranes are moist. NECK: Supple. No carotid bruits. No lymphadenopathy or thyromegaly. LUNGS: Clear to auscultation. No crackles or wheezes are heard. HEART: A. fib rate controlled ABDOMEN: Soft, nontender, and nondistended. Positive bowel sounds. No hepatosplenomegaly was noted. EXTREMITIES: Erythema to the inner thigh on the right side.much less , no warmth. Mild pain noted. Patient with venous insufficiency varicose veins NEUROLOGIC: The patient is oriented to person, place and time. Strength and sensation are grossly intact. Face is symmetric. SKIN: Normal color, turgor and temperature. No ulcerations or rashes noted. 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 WBC down to 13 k, Blood cultures obtained so far neg . Venous Doppler shows no evidence of DVT. off fluids per nephrology and back on lasix Cr improving but still very high Patient with elevated Troponin likely Ischemic demand. cardiology consult pending Echocardiogram pending. 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 NSTEMI -cardiology going more conservative approach , if echo abn, then they may consider cath if kidney fx better Chronic diastolic CHF: -On low dose lasix nephro following Hyperlipidemia: -On statin medication Hypothyroidism: -Cont synthyroid TSH and free T4 both normal Venous insufficiency with varicose veins: -Venous Doppler shows no DVT. Code Status: -This was discussed in detail. Patient wishes to be DO NOT RESUSCITATE. SW consult for placement and PT consult to decide what level of care pt need DVT prophylaxis: Eliquis Advanced Care Planning-30 minutes: Anticipate home at discharge in 3-4 days, echo and cardio pending, WBC still high as well as Cr and Cx final pending too Discharge Plan: Home Plan to discharge in: Greater than 2 days - Advance Directives Does patient have a Living Will: No Does patient have a Durable POA for Healthcare: No - Code Status/Comfort Care Code Status Assessed: Yes (Patient is DNR)
--- NOTE | 2021-03-21 15:33 | PN ---
Date of Progress Note: 03/21/2021 Subjective: Seen by bedside. She is doing slightly better. Review of Systems: No chest pain, shortness of breath, orthopnea, or cough. No nausea, vomiting, or diarrhea. All othe r systems were reviewed and they are negative. Physical Examination: Vital Signs: Temperature is 96.9, pulse 70, breathing at 18, blood pressure 139/84, and saturating 9 8%. General: Pleasant elderly female, no apparent distress. Head and Neck: Pupils are equal and reactive to light. Intact eye movements. No JVD. No cervical lymphadenopathy. Neck: Supple. Thyroid is not enlarged. Lungs: Clear to auscultation bilaterally. No rhonchi, rales, or crackles. No accessory muscle use. Heart: Irregularly irregular with late-peaking aortic systolic murmur. Abdomen: Soft, nontender. Bowel sounds positive. No organomegaly. No masses or hernia. No rigidi ty or rebound. Extremities: Cellulitis in right thigh with movement. Neurologic: Alert and awake. No acute focal deficits appreciated. Lymph Nodes: No cervical or axillary lymphadenopathy. Investigations: White count is down to 13,500 and her creatinine is down to 2.79 with a BUN of 90. Assessment And Recommendations: 1.Elevated troponin, could be in demand. However, underlying significant coronary artery disease ca nnot be ruled out at this point due to the kidney dysfunction. We will continue to monitor. Obtain echo once it is feasible and once creatinine improves to normal levels, we will consider coronary ang iogram. If creatinine continues to be elevated, then a nuclear stress test will be recommended. 2.Aortic valve stenosis. Please obtain echo to assess severity. SR/MODL Voice ID: [id number] Report ID: [id number]
[2021-03-21] MEDS: ATORVASTATIN 10 MG TAB PO SCH (20:24)
[2021-03-22] MEDS: FUROSEMIDE 20 MG/ 2ML VIAL IV SCH ×2 (08:52→18:09)
[2021-03-22] MEDS: THIAMINE HCL 100 MG TABLET PO SCH (08:52)
[2021-03-22] MEDS: FOLIC ACID 1 MG TABLET PO SCH (08:52)
[2021-03-22] MEDS: CEFEPIME 1 GM in NA CHLORIDE 0.9% 100 ML IV SCH (08:52)
[2021-03-22] MEDS: APIXABAN 2.5 MG TABLET PO SCH ×2 (08:52→22:19)
[2021-03-22] MEDS: carvediloL 6.25 MG TAB PO SCH ×2 (08:52→22:18)
[2021-03-22] MEDS: predniSONE 10 MG TAB PO SCH ×2 (08:56→22:19)
--- NOTE | 2021-03-22 10:52 | P.PN ---
Subjective Date of Service: 03/22/21 Primary Care Provider: Dr. Goodman; Cardiology-Dr. Barnes Chief Complaint: Fatigue pt sitting in bed, feeling much better,her leg pain cont to improve less erythrema, eating well but still very weak and waiting for PT eval Physical Examination - Vital Signs Temperature: 96.9 F Blood Pressure: 140/79 Pulse: 68 Respirations: 18 Pulse Ox (%): 94 Assessment & Plan Physician Review Additional Text: COVID: Pending Chest x-ray: COMPARISON: CHEST SINGLE VIEW dated 03/05/2013; CHEST PA AND LAT 2 VIEW dated 09/06/2011; CHEST PA AND LAT 2 VIEW dated 08/10/2011; CHEST SINGLE VIEW dated 03/04/2011 FINDINGS: Portable technique limits examination quality. Mild bilateral interstitial lung opacities. This may represent pulmonary edema or viral infection. The heart is moderately enlarged. No displaced fractures. Venous Doppler: COMPARISON: No comparisons FINDINGS: Right lower extremity venous system was interrogated with Doppler technique. The proximal and mid femoral vein shows noncompressibility which may represent DVT. Elsewhere, no DVT is seen. IMPRESSION: The proximal and mid right femoral vein were not compressible suggesting DVT. Physical Exam: GENERAL: The patient is a well-developed, well-nourished, in no apparent distress. Alert and oriented x3. VITAL SIGNS: Reviewed HEENT: Head is normocephalic and atraumatic. Extraocular muscles are intact. Pupils are equal, round, and reactive to light and accommodation. Nares appeared normal. Mouth is well hydrated and without lesions. Mucous membranes are moist. NECK: Supple. No carotid bruits. No lymphadenopathy or thyromegaly. LUNGS: Clear to auscultation. No crackles or wheezes are heard. HEART: A. fib rate controlled ABDOMEN: Soft, nontender, and nondistended. Positive bowel sounds. No hepatosplenomegaly was noted. EXTREMITIES: Erythema to the inner thigh on the right side.much less , no warmth. Mild pain noted. Patient with venous insufficiency varicose veins NEUROLOGIC: The patient is oriented to person, place and time. Strength and sensation are grossly intact. Face is symmetric. SKIN: Normal color, turgor and temperature. No ulcerations or rashes noted. 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 Cx so far neg WBC down to 13 k yesterday today pending, will DC Vanco , Venous Doppler shows no evidence of DVT. off fluids per nephrology and back on lasix Cr improving but still very high Patient with elevated Troponin likely Ischemic demand. 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 NSTEMI -cardiology going more conservative approach , if echo abn, then they may consid er cath if kidney fx better Chronic diastolic CHF: -On low dose lasix nephro following Hyperlipidemia: -On statin medication Hypothyroidism: -Cont synthyroid TSH and free T4 both normal Venous insufficiency with varicose veins: -Venous Doppler shows no DVT. Code Status: -This was discussed in detail. Patient wishes to be DO NOT RESUSCITATE. SW consult for placement and PT consult to decide what level of care pt need , echo in am still pending DVT prophylaxis: Eliquis Advanced Care Planning-30 minutes: Anticipate home at discharge in 3-4 days, echo and cardio pending, WBC still high as well as Cr and Cx final pending too Discharge Plan: Home Plan to discharge in: Greater than 2 days - Advance Directives Does patient have a Living Will: No Does patient have a Durable POA for Healthcare: No - Code Status/Comfort Care Code Status Assessed: Yes (Patient is DNR)
[2021-03-22] MEDS ORDERED: VANCOMYCIN 250 MG in NA CHLORIDE 0.9% 100 ML IVPB ONE (12:00)
--- NOTE | 2021-03-22 13:24 | PN ---
Date of Progress Note: 03/22/2021 Subjective: Seen at bedside. Significant improvement. Her edema of her thigh almost resolved. Fee ls much better. Review of Systems: No chest pain, shortness of breath, orthopnea, or cough. No nausea, vomiting, diarrhea. No abdomina l pain. All other systems were reviewed and are negative. Physical Examination: Vital Signs: Temperature is 97.1, pulse is 74, breathing at 16, blood pressure is 134/75, saturating 98% on room air. General: Pleasant elderly female, in no distress. Head and Neck: Pupils are equal, reactive to light. Intact eye movements. No JVD. No cervical lym phadenopathy. Neck: Supple. Thyroid is not enlarged. Lungs: Clear to auscultation bilaterally. No rhonchi, rales, or crackles. No accessory muscle use. Heart: Irregularly irregular. No extra sounds. Abdomen: Soft, nontender. Bowel sounds positive. No organomegaly. No masses or hernia. No rigidi ty or rebound. Extremities: No clubbing, cyanosis. Intact pulses. Skin: No rash. No nodules. Neuro: Alert, awake, oriented x3. No acute focal deficits appreciated. Investigations: Labs were pending from today. Assessment And Recommendations: 1.Elevated troponin. Further workup is warranted. Await on her kidney function to stabilize, which might take some time. Hence, I would recommend a Lexiscan nuclear stress test to be done, which can be obtained tomorrow morning. 2.Aortic valve stenosis by exam. Await on echo to assess the severity and determine the plan of act ion accordingly. SR/MODL Voice ID: [id number] Report ID: [id number]
[2021-03-22] MEDS ORDERED: VANCOMYCIN 1.25 GM in NA CHLORIDE 0.9% 250 ML IVPB SCH (18:00)
[2021-03-22 20:26] VITALS: BMI 26.3
[2021-03-22] MEDS ORDERED: VANCOMYCIN 250 MG in NA CHLORIDE 0.9% 100 ML IVPB SCH (21:00)
[2021-03-22] MEDS: ATORVASTATIN 10 MG TAB PO SCH (22:18)
[2021-03-23 04:20] LABS: Absolute Lymphocytes (CBC) 0.3 K/uL (0.7-4.9); Basophils % 0.2 % (0-1.3); Lymphocytes % 2.9 % (15.3-44.8)
[2021-03-23 04:38] LABS: Bilirubin Total 0.8 mg/dL (0.2-1.0); Potassium 4.2 mmol/L (3.5-5.1); Protein, Total 6.1 g/dL (6.4-8.2)
[2021-03-23 04:45] LABS: Blood Morphology Comment NOTED (NOT SEEN); Ovalocytes 2+; Platelet Estimate ADEQ
[2021-03-23] MEDS: THIAMINE HCL 100 MG TABLET PO SCH (09:32)
[2021-03-23] MEDS: FOLIC ACID 1 MG TABLET PO SCH (09:32)
[2021-03-23] MEDS: CEFEPIME 1 GM in NA CHLORIDE 0.9% 100 ML IV SCH (09:32)
[2021-03-23] MEDS: predniSONE 10 MG TAB PO SCH ×2 (09:32→22:24)
[2021-03-23] MEDS: APIXABAN 2.5 MG TABLET PO SCH ×2 (09:32→22:24)
[2021-03-23] MEDS: carvediloL 6.25 MG TAB PO SCH ×2 (09:33→22:23)
[2021-03-23] MEDS: FUROSEMIDE 20 MG/ 2ML VIAL IV SCH ×2 (09:33→17:45)
[2021-03-23] MEDS: ATORVASTATIN 10 MG TAB PO SCH (22:23)
--- NOTE | 2021-03-24 08:07 | ECHO ---
HEIGHT: 5 ft 3 in WEIGHT: 148 lb 8 oz DATE OF STUDY: 03/23/[address]: Adam Mccarthy DO 2-DIMENSIONAL: YES M.MODE: YES DOPPLER: YES COLOR FLOW: YES TDS: NO PORTABLE: NO DEFINITY: NO BUBBLE STUDY: NO DIAGNOSIS: ELEVATED TROPONIN CARDIAC HISTORY: CATHERIZATION: SURGERY: PROSTHETIC VALVE: PACEMAKER: MEASUREMENTS (cm) DIASTOLIC (NORMALS) SYSTOLIC (NORMALS) IVSd 0.8 (0.6-1.2) LA Diam 4.0 (1.9-4.0) LVEF 55-60% LVIDd 4.5 (3.5-5.7) LVIDs 3.3 (2.0-3.5) %FS 28% LVPWd 1.0 (0.6-1.2) Ao Diam 2.9 (2.0-3.7) 2 DIMENSIONAL ASSESSMENT: RIGHT ATRIUM: NORMAL LEFT ATRIUM: ENLARGED RIGHT VENTRICLE: NORMAL LEFT VENTRICLE: NORMAL TRICUSPID VALVE: MITRAL VALVE: PULMONIC VALVE: NORMAL AORTIC VALVE: HEAVILY CALCIFIED PERICARDIAL EFFUSION: NONE AORTIC ROOT: NORMAL LEFT VENTRICULAR WALL MOTION: NORMAL DOPPLER/COLOR FLOW: SEE BELOW COMMENTS: NORMAL LEFT VENTRICULAR EJECTION FRACTION 55-60% WITH NORMAL WALL MOTION. SEVERE TRICUSPID REGURGITATION. MILD MITRAL REGURGITATION. HEAVILY CALCIFIED AORTC VALVE WITH MODERATE AORTIC STENOSIS AT LEAFLET. TECHNOLOGIST: Guanako PEARSON
[2021-03-24] MEDS: CEFEPIME 1 GM in NA CHLORIDE 0.9% 100 ML IV SCH (09:24)
[2021-03-24] MEDS: APIXABAN 2.5 MG TABLET PO SCH (09:25)
[2021-03-24] MEDS: FOLIC ACID 1 MG TABLET PO SCH (09:25)
[2021-03-24] MEDS: FUROSEMIDE 20 MG/ 2ML VIAL IV SCH (09:25)
[2021-03-24] MEDS: predniSONE 10 MG TAB PO SCH (09:25)
[2021-03-24] MEDS: carvediloL 6.25 MG TAB PO SCH (09:25)
[2021-03-24] MEDS: THIAMINE HCL 100 MG TABLET PO SCH (09:25)
[2021-03-24 13:57] VITALS: BP 140/71; TEMP 97.7
[2021-03-24 15:02] VITALS: O2SAT 99
--- NOTE | 2021-03-24 19:33 | P.PN ---
Date of Service: 03/23/21 Vital Signs Temp Pulse Resp BP Pulse Ox 97.7 F 73 18 140/71 95 03/24/21 12:00 03/24/21 12:00 03/24/21 12:00 03/24/21 12:00 03/24/21 12:00 Microbiology Results 03/18/21 15:27 Blood - Blood Aerobic Blood Culture - Final No growth in 5 days. 03/18/21 15:27 Blood - Blood Anaerobic Blood Culture - Final No growth in 5 days. 03/18/21 15:39 Clean Catch Urine [place] Count - Final No growth. 03/18/21 15:39 Clean Catch Urine - Final No growth. Assessment/ Plan: Nephrology No dyspnea No chest pain No acute events overnight Vitals, medications, blood work and imaging reviewed in the chart NAD. NCAT. MMM. Neck supple. Normal respiratory effort. RRR. ND Abd. No C/C. LE Edema trace. No rash. AAO. Normal speech. A/P Continue the current POC and Medications other than the changes listed below. AM labs as ordered. Daily weight. KIANNA CKD IV -No NSAIDs -Continue Lasix Hyperkalemia -Continue Lasix HTN with CKD/ CHF complicated by hypotension -Hold antihypertensives Diastolic CHF, chronic Severe TR Moderate -Continue Lasix Moderate malnutrition -Recommend protein supplementation
--- NOTE | 2021-03-24 19:34 | P.PN ---
Date of Service: 03/24/21 Vital Signs Temp Pulse Resp BP Pulse Ox 97.7 F 73 18 140/71 95 03/24/21 12:00 03/24/21 12:00 03/24/21 12:00 03/24/21 12:00 03/24/21 12:00 Microbiology Results 03/18/21 15:27 Blood - Blood Aerobic Blood Culture - Final No growth in 5 days. 03/18/21 15:27 Blood - Blood Anaerobic Blood Culture - Final No growth in 5 days. 03/18/21 15:39 Clean Catch Urine [place] Count - Final No growth. 03/18/21 15:39 Clean Catch Urine - Final No growth. Assessment/ Plan: Nephrology No dyspnea No chest pain No acute events overnight Vitals, medications, blood work and imaging reviewed in the chart NAD. NCAT. MMM. Neck supple. Normal respiratory effort. RRR. ND Abd. No C/C/E. No rash. AAO. Normal speech. A/P Continue the current POC and Medications other than the changes listed below. AM labs as ordered. Daily weight. KIANNA CKD IV -No NSAIDs -Continue Lasix Hyperkalemia -Continue Lasix HTN with CKD/ CHF complicated by hypotension -Hold antihypertensives Diastolic CHF, chronic Severe TR Moderate -Continue Lasix Moderate malnutrition -Recommend protein supplementation
== END 2021-03-24 15:44 | disposition home health service (06) | DRG 872 ==
LOC: ER 15:13 → ERHOLD 16:48 → 2ND 03-20 13:08
PROVIDERS: ADMIT Internal Medicine; ATTEND Hospitalist
DX: A41.52 Sepsis due to Pseudomonas (principal); L03.115 Cellulitis of right lower limb; N39.0 Urinary tract infection, site not specified; N17.9 Acute kidney failure, unspecified; N18.4 Chronic kidney disease, stage 4 (severe); I50.32 Chronic diastolic (congestive) heart failure; I13.0 Hypertensive heart and chronic kidney disease with heart failure and stage 1 through stage 4 chronic kidney disease, or unspecified chronic kidney disease; E27.40 Unspecified adrenocortical insufficiency; E44.0 Moderate protein-calorie malnutrition; E11.22 Type 2 diabetes mellitus with diabetic chronic kidney disease; E87.5 Hyperkalemia; I25.10 Atherosclerotic heart disease of native coronary artery without angina pectoris; E83.51 Hypocalcemia; E86.1 Hypovolemia; E78.5 Hyperlipidemia, unspecified; I35.0 Nonrheumatic aortic (valve) stenosis; I83.11 Varicose veins of right lower extremity with inflammation; I48.91 Unspecified atrial fibrillation; E03.9 Hypothyroidism, unspecified; R77.8 Other specified abnormalities of plasma proteins; Z66 Do not resuscitate; Z88.1 Allergy status to other antibiotic agents; Z88.5 Allergy status to narcotic agent; Z79.890 Hormone replacement therapy; Z79.01 Long term (current) use of anticoagulants; Z68.26 Body mass index [BMI] 26.0-26.9, adult; Z79.899 Other long term (current) drug therapy; Z86.73 Personal history of transient ischemic attack (TIA), and cerebral infarction without residual deficits; Z90.11 Acquired absence of right breast and nipple; Z96.653 Presence of artificial knee joint, bilateral; Z20.822 Contact with and (suspected) exposure to COVID-19
CPT/HCPCS: 36415; 51702; 71045; 71046; 80048; 80053; 80061; 80076; 80202; 81003; 81015; 82550; 82553; 82947; 83605; 83690; 83735; 84132; 84145; 84439; 84443; 84484; 85025; 85610; 85730; 87040; 87086; 87088; 87205; 93005; 93306; 93971; 94640; 96374; 97116; 97161; 97530; 99285; J0610; J0692; J1940; J2920; J3370; J7030; J7050; J7060; J7512; U0003